=== PATIENT | female | born 1945 | race Caucasian/White ===

== ENCOUNTER 2024-05-04 17:01 | Inpatient (IN) | payer MEDICARE, SELFPAY ==
[2024-05-04 17:08] VITALS: BP 145/79; PULSE 71; RESP 18; TEMP 36.6; O2SAT 92
[2024-05-04 17:18] VITALS: BMI 28.5
--- NOTE | 2024-05-04 17:44 | EKG12_ITS ---
Test Reason : WEAKNESS Blood Pressure : / mmHG Vent. Rate : 068 BPM Atrial Rate : 068 BPM P-R Int : 190 ms QRS Dur : 078 ms QT Int : 466 ms P-R-T Axes : 049 007 005 degrees QTc Int : 495 ms Normal sinus rhythm Possible Left atrial enlargement ST & T wave abnormality, consider inferior ischemia Abnormal ECG Confirmed by Cecilio Rose ([id number]), general expeditor MARLON MARKS ([id number]) on 05/06/2024 10:22:47 AM Referred By: Confirmed By:Cecilio Rose
--- NOTE | 2024-05-04 17:48 | EDS_ITS ---
HPI <POOJA Hall - Last Filed: 05/04/24 19:11> History of Present Illness Chief Complaint: Weakness Narrative Narrative: Patient is a 78-year-old female with history of hypertension hyperlipidemia, fibromyalgia who presents to the emergency department with complaints of 1 week of weakness, worse over the last 48 hours. Patient's family states the patient had some near syncopal episodes, she has been urinating more frequently, she has been having a harsher cough. Patient states that she can is not walk at this time because she is so weak. PFSH <POOJA Hall - Last Filed: 05/04/24 19:11> PFSH Allergy/AdvReac Type Severity Reaction Status Date / Time Sulfa (Sulfonamide Allergy Swelling Verified 05/04/24 17:07 Antibiotics) (sulfa drugs) Social History Smoking Status: Never smoker ROS <POOJA Hall - Last Filed: 05/04/24 19:11> ROS ED ROS Narrative Constitutional: Negative for fever, chills, weight loss. Positive for weakness Eyes: Negative for vision loss, vision change, double vision ENT: Negative for any sore throat, ear pain. Positive for congestion Cardiovascular: Negative for any chest pain, tightness, palpitations Respiratory: Negative for any sputum production, hemoptysis, dyspnea, dyspnea on exertion, orthopnea. Positive for cough Gastrointestinal: Negative for any abdominal pain, nausea, vomiting, diarrhea, constipation, blood in stool, blood in vomit : Negative for any urinary frequency, dysuria, retention, blood in urine Muscle skeletal: Negative for any neck pain, back pain Neurological: Negative for any headache, dizziness. Positive for near syncope Skin: Negative for any rashes, itching, abrasions, lacerations Psychiatric: Negative for any depression, anxiety, stress, suicidal ideation, homicidal ideation Hematologic: Negative for any excessive bruising, easy bleeding EXAM <POOJA Hall - Last Filed: 05/04/24 19:11> Physical Exam Narrative Exam Narrative: Vital signs reviewed. Patient is alert and orient x 4, patient does have a pale appearance, did appear dry on my initial examination. HEET: Head normocephalic atraumatic, TMs clear bilaterally. Posterior pharynx is clear, dry mucous membranes. Nares clear bilaterally. Neck: Supple with no lymphadenopathy or tenderness. No signs of meningismus. Cardiac: Regular rate and rhythm no murmurs gallops or rubs, equal peripheral pulses bilaterally. Respiratory: Slight rhonchorous breath sounds to the right mid lobe, remainder was clear.. No chest tenderness. Abdomen: Soft, nontender, nondistended. No abdominal bruit or pulsatile masses. No hepatosplenomegaly Extremities: No peripheral edema, no signs of gross trauma or deformity. Active full range of motion of all extremities. Neuro: Cranial nerves II through XII intact, no focal neurological deficits. Skin: Clean dry and intact with no rash, purpura, petechiae, vesicles or pustules. Backs/flank: No CVA tenderness, no midline spinal tenderness, no deformity. Psych: Normal mood and affect. No SI, HI or acute psychosis. Const Vital Signs: 05/04/24 17:08 05/04/24 18:16 05/04/24 19:13 Temperature 98 F Temperature Source Temporal Pulse Rate 71 67 Respiratory Rate 18 18 Respiratory Effort Normal Respiratory Pattern Normal Blood Pressure 145/79 H 124/62 H Blood Pressure Mean 101 82 Pulse Ox 92 92 Oxygen Delivery Method Room Air Room Air <Dr. Taqueria Pastrana DO - Last Filed: 05/04/24 19:59> Physical Exam Const Vital Signs: 05/04/24 17:08 05/04/24 18:16 05/04/24 19:13 Temperature 98 F Temperature Source Temporal Pulse Rate 71 67 Respiratory Rate 18 18 Respiratory Effort Normal Respiratory Pattern Normal Blood Pressure 145/79 H 124/62 H Blood Pressure Mean 101 82 Pulse Ox 92 92 Oxygen Delivery Method Room Air Room Air [facility] <POOJA Hall - Last Filed: 05/04/24 19:11> [facility] Lab Data Labs: Laboratory Results - last 24 hr 05/04/24 05/04/24 17:50 17:52 WBC 7.5 RBC 4.24 Hgb 12.6 Hct 37.2 MCV 87.7 MCH 29.7 MCHC 33.9 RDW Std Deviation 42.8 RDW Coeff of Ayesha 13.3 Plt Count 244 MPV 9.2 Immature Gran % (Auto) 0.500 Neut % (Auto) 82.0 H Lymph % (Auto) 7.3 L Mcleod % (Auto) 9.7 Eos % (Auto) 0.0 Baso % (Auto) 0.5 Absolute Neuts (auto) 6.1 Absolute Lymphs (auto) 0.55 L Nucleated RBC % 0 Sodium 128 L Potassium 2.8 L Chloride 90 L Carbon Dioxide 28.0 Anion Gap 10 BUN 11 Creatinine 0.53 L Est GFR (MDRD) Af Amer 143 Est GFR (MDRD) Non-Af 118 BUN/Creatinine Ratio 20.7 H Glucose 142 H Lactic Acid 1.2 Calcium 8.3 L Total Bilirubin 0.50 AST 21 ALT 18 Alkaline Phosphatase 87 Troponin I High Sens 13 Total Protein 7.2 Albumin 3.0 L Globulin 4.2 Albumin/Globulin Ratio 0.7 L Lipase 17 Urine Color Yellow Urine Clarity Clear Urine pH 6.0 Ur Specific [place] 1.015 Urine Protein 30 H Urine Glucose (UA) Normal Urine Ketones 5 H Urine Occult Blood 150 H Urine Nitrite Negative Urine Bilirubin Negative Urine Urobilinogen Normal Ur Leukocyte Esterase 500 H Urine RBC 0 SEEN Urine WBC 25-50 SEEN Ur Squamous Epith Cells 5-10 SEEN Urine Bacteria 2+ Urine Mucus 0 SEEN Radiography Diagnostic Testing: Clinical Impression(s) from Imaging Studies Chest X-Ray 05/04/24 18:08 IMPRESSION: Moderate dense left retrocardiac opacity partially obscuring the left hemidiaphragm. Considerations include pneumonia, pulmonary infarct, and postobstructive pneumonitis due to occult more central mass, large irregular mass, and atelectasis or scarring. Correlate with evidence of pneumonia. RECOMMENDATIONS: Close short-term follow-up chest radiograph versus CT or CTA of the chest. CT or CTA is suggested if it is thought to be indicated. Electronically Signed: Kianna Rogers MD at 19:09 EDT , EKG Normal sinus rhythm: Attestation: I personally reviewed and interpreted this EKG as follows: Comments: Normal sinus rhythm, rate 60 bpm, TN 190 ms, QRS duration 78 ms, no acute ST elevation, no acute infarct noted. Treatment and Re-Evaluation :: Differential diagnosis includes however is not limited to: Dehydration, electrolyte abnormality, pneumonia, COVID-19, influenza, RSV, other viral illness, ACS Patient is in no obvious respiratory distress, patient's vital signs are stable. Patient presents to the emergency department for worsening weakness, cough, generalized bodyaches. Patient will receive basic laboratory values, CBC CMP lipase, troponin, lactic acid. 1 L of normal saline given. Patient received a urinalysis by straight cath. Chest x-ray will be obtained. Viral swab will be ordered. All radiologic examinations were read, reviewed by the emergency department attending. From these reads, a plan of care will be put in place. Patient CBC was unremarkable, hemoglobin stable 12.6, chemistries showed a hyponatremia with a sodium 128, potassium was 2.8, chloride was 90. Patient's creatinine was slightly low at 0.53. Patient's glucose 143. Lactic acid was negative. Lipase was negative. Urinalysis was positive with infection, this was a 2+ bacteria 25-50 white blood cells, 500 leukocytes. This to be sent for a culture. Patient was given IV fluids, IV Rocephin. Patient's viral swab was positive for COVID-19, this does explain the patient's cough and weakness. Chest x-ray was unremarkable. At this time, secondary the patient's weakness, electrolyte abnormalities, hypokalemia, the patient will need to be admitted to the hospital. Patient will be given 20 mill equivalents IV potassium as well as 40 p.o. She will be admitted to the hospitalist service. ED attending note: I evaluated the patient in conjunction with the DMITRY. I agree with his/her statements and above findings. I have personally performed a face to face assessment of the patient and have reviewed the DMITRY Note. I performed a substantive portion of the visit including all aspects of the following. I personally saw the patient performed chart review, physical exam, reviewed labs, imaging (if obtained), and formulated a treatment and management plan. Patient presents with diffuse weakness, dysuria frequency and urgency. No focal neurologic deficits, NIH of 0. Urine appears to be infected however lactate is negative. Will give IV antibiotics admit the patient given weakness, failure to thrive and signs of UTI. This note was generated with [employer] dictation software. It may contain incorrect words, spelling, and punctuation that were not noted in review of the chart prior to signing. <Dr. Taqueria Pastrana, DO - Last Filed: 05/04/24 19:59> MDM Lab Data Labs: Laboratory Results - last 24 hr 05/04/24 05/04/24 17:50 17:52 WBC 7.5 RBC 4.24 Hgb 12.6 Hct 37.2 MCV 87.7 MCH 29.7 MCHC 33.9 RDW Std Deviation 42.8 RDW Coeff of Ayesha 13.3 Plt Count 244 MPV 9.2 Immature Gran % (Auto) 0.500 Neut % (Auto) 82.0 H Lymph % (Auto) 7.3 L Mcleod % (Auto) 9.7 Eos % (Auto) 0.0 Baso % (Auto) 0.5 Absolute Neuts (auto) 6.1 Absolute Lymphs (auto) 0.55 L Nucleated RBC % 0 Sodium 128 L Potassium 2.8 L Chloride 90 L Carbon Dioxide 28.0 Anion Gap 10 BUN 11 Creatinine 0.53 L Est GFR (MDRD) Af Amer 143 Est GFR (MDRD) Non-Af 118 BUN/Creatinine Ratio 20.7 H Glucose 142 H Lactic Acid 1.2 Calcium 8.3 L Total Bilirubin 0.50 AST 21 ALT 18 Alkaline Phosphatase 87 Troponin I High Sens 13 Total Protein 7.2 Albumin 3.0 L Globulin 4.2 Albumin/Globulin Ratio 0.7 L Lipase 17 Urine Color Yellow Urine Clarity Clear Urine pH 6.0 Ur Specific [place] 1.015 Urine Protein 30 H Urine Glucose (UA) Normal Urine Ketones 5 H Urine Occult Blood 150 H Urine Nitrite Negative Urine Bilirubin Negative Urine Urobilinogen Normal Ur Leukocyte Esterase 500 H Urine RBC 0 SEEN Urine WBC 25-50 SEEN Ur Squamous Epith Cells 5-10 SEEN Urine Bacteria 2+ Urine Mucus 0 SEEN Radiography Diagnostic Testing: Clinical Impression(s) from Imaging Studies Chest X-Ray 05/04/24 18:08 IMPRESSION: Moderate dense left retrocardiac opacity partially obscuring the left hemidiaphragm. Considerations include pneumonia, pulmonary infarct, and postobstructive pneumonitis due to occult more central mass, large irregular mass, and atelectasis or scarring. Correlate with evidence of pneumonia. RECOMMENDATIONS: Close short-term follow-up chest radiograph versus CT or CTA of the chest. CT or CTA is suggested if it is thought to be indicated. Electronically Signed: Kianna Rogers MD at 19:09 EDT , Treatment and Re-Evaluation :: Differential diagnosis includes however is not limited to: Dehydration, electrolyte abnormality, pneumonia, COVID-19, influenza, RSV, other viral illness, ACS Patient is in no obvious respiratory distress, patient's vital signs are stable. Patient presents to the emergency department for worsening weakness, cough, generalized bodyaches. Patient will receive basic laboratory values, CBC CMP lipase, troponin, lactic acid. 1 L of normal saline given. Patient received a urinalysis by straight cath. Chest x-ray will be obtained. Viral swab will be ordered. All radiologic examinations were read, reviewed by the emergency department attending. From these reads, a plan of care will be put in place. Patient CBC was unremarkable, hemoglobin stable 12.6, chemistries showed a hyponatremia with a sodium 128, potassium was 2.8, chloride was 90. Patient's creatinine was slightly low at 0.53. Patient's glucose 143. Lactic acid was negative. Lipase was negative. Urinalysis was positive with infection, this was a 2+ bacteria 25-50 white blood cells, 500 leukocytes. This to be sent for a culture. Patient was given IV fluids, IV Rocephin. Patient's viral swab was positive for COVID-19, this does explain the patient's cough and weakness. Chest x-ray was unremarkable. At this time, secondary the patient's weakness, electrolyte abnormalities, hypokalemia, the patient will need to be admitted to the hospital. Patient will be given 20 mill equivalents IV potassium as well as 40 p.o. She will be admitted to the hospitalist service. ED attending note: I evaluated the patient in conjunction with the DMITRY. I agree with his/her statements and above findings. I have personally performed a face to face assessment of the patient and have reviewed the DMITRY Note. I performed a substantive portion of the visit including all aspects of the following. I personally saw the patient performed chart review, physical exam, reviewed labs, imaging (if obtained), and formulated a treatment and management plan. Patient presents with diffuse weakness, dysuria frequency and urgency. No focal neurologic deficits, NIH of 0. Urine appears to be infected however lactate is negative. Will give IV antibiotics admit the patient given weakness, failure to thrive and signs of UTI. In terms of the patient's chest x-ray findings per radiology report the patient had no cough, fever, shortness of breath or chest pain. No clinical indication for additional imaging. No clinical signs of pneumonia. This note was generated with [employer] dictation software. It may contain incorrect words, spelling, and punctuation that were not noted in review of the chart prior to signing. Discharge Plan Dx/Rx/DC Orders Clinical Impression: COVID, Weakness, Acute hyponatremia, Acute hypokalemia, Acute UTI Disposition Disposition: Acute Care Hospital [facility]
--- NOTE | 2024-05-04 17:51 | NURSING ---
NO OLD EKGS
[2024-05-04 17:59] LABS: Mucous, Urine 0 SEEN /hpf (<or=2+); Red Blood Cells-Urine 0 SEEN /hpf (0-5)
[2024-05-04] MEDS: 0.9% Normal Saline (1000mL) 1,000 ML 999 ML IV (18:01)
[2024-05-04 18:04] LABS: Absolute Lymphocyte Count 0.55 X10^3/uL (0.83-4.51); Absolute Neutrophil Count 6.1 X10^3/uL (2.0-7.7); Basophil# 0.04 X10^3/uL; Basophil% 0.5 % (0-1); Hematocrit 37.2 % (37-47); Hemoglobin 12.6 g/dL (12.0-15.0); Lymphocyte # 0.55 X10^3/ul (0.83-4.51); Lymphocyte % 7.3 % (19-41); Mean Corp Hgb Conc 33.9 g/dL (32-36); Mean Corpuscular Hgb 29.7 pg (27.0-32.0); Mean Corpuscular Volume 87.7 fL (81-99); Mean Platelet Vol. 9.2 fl (6.2-12.0); Monocyte# 0.73 X10^3/uL; Monocyte% 9.7 % (0-10); NRBC Flagged by Analyzer 0 % (0-5); Neutrophil # 6.13 X10^3/uL (2.7-7.7); POSITIVE DIFFERENTIAL YES; Platelet Count 244 K/mm3 (150-450); RBC Distribution Width CV 13.3 % (11.6-14.6); RBC Distribution Width SD 42.8 fl (35.1-43.9); Red Blood Count 4.24 M/mm3 (4.2-5.4); White Blood Count 7.5 K/mm3 (4.4-11.0)
[2024-05-04 18:06] LABS: Color, Urine Yellow (Yellow); Glucose, Dipstick Normal (Normal); Ketone-Dipstick 5 mg/dl (Negative); Leukocyte Esterase-Dipstick 500 /ul (Negative); Nitrite-Dipstick Negative (Negative); Occult Blood-Urine 150 /ul (Negative); Protein-Dipstick 30 mg/dl (Negative); Specific Gravity, Urine 1.015 (1.002-1.030); Urine Bilirubin Dipstick Negative (Negative); Urine Clarity Clear (Clear); Urine Urobilinogen Normal (Normal)
--- NOTE | 2024-05-04 18:08 | RAD_ITS ---
EXAM: XR CHEST, 1 VIEW CLINICAL INDICATION: COUGH TECHNIQUE: Frontal view of the chest. COMPARISON: No relevant prior studies available. FINDINGS: LUNGS AND PLEURAL SPACES: There is a thick band of consolidation in the left retrocardiac region partially obscuring the left hemidiaphragm. No left hemidiaphragm elevation. HEART: Unremarkable. Cardiac silhouette not enlarged. MEDIASTINUM: Central airways and mediastinal contour are unremarkable. There are some punctate calcifications in the left infrahilar and left paraspinous region, likely calcified granulomatous lymph nodes. BONES/JOINTS: Unremarkable. No acute fracture. SOFT TISSUES: Unremarkable. RAD/Chest 1 View (Portable) IMPRESSION: Moderate dense left retrocardiac opacity partially obscuring the left hemidiaphragm. Considerations include pneumonia, pulmonary infarct, and postobstructive pneumonitis due to occult more central mass, large irregular mass, and atelectasis or scarring. Correlate with evidence of pneumonia. RECOMMENDATIONS: Close short-term follow-up chest radiograph versus CT or CTA of the chest. CT or CTA is suggested if it is thought to be indicated. Electronically Signed: Kianna Rogers MD at 19:09 EDT ,
[2024-05-04 18:19] LABS: White Blood Cells 25-50 SEEN /hpf (0-5)
[2024-05-04 18:20] LABS: Bacteria 2+ /hpf (None Seen); Squamous Epithelial Cells - UA 5-10 SEEN /hpf (5-10)
[2024-05-04 18:31] LABS: Lactic Acid 1.2 mmol/L (0.4-1.9)
[2024-05-04 18:33] LABS: ALB/GLOB Ratio 0.7 RATIO (0.9-2.4); AST(SGOT) 21 U/L (15-37); Alanine Aminotransfer ALT/SGPT 18 U/L (13-56); Alkaline Phosphatase 87 U/L (45-117); Anion Gap 10 (5-15); BUN 11 mg/dL (7-18); BUN/Creat Ratio 20.7 RATIO (10-20); Calcium,Total 8.3 mg/dL (8.5-10.1); Chloride 90 mmol/L (98-107); Creatinine, Serum 0.53 mg/dL (0.55-1.02); EST Glomerular Filtration Rate 118 mL/min (>60); Est Glom Filt Rate - Afr Amer 143 mL/min (>60); Globulin 4.2 g/dL (2.2-4.2); Glucose 142 mg/dL (74-106); Lipase 17 U/L (13-75); Potassium 2.8 mmol/L (3.5-5.1); Protein, Total 7.2 g/dL (6.4-8.2); Sodium Level 128 mmol/L (136-145); Troponin-I HS 13 pg/mL (3.0-54.0)
[2024-05-04] MEDS: Ceftriaxone 1 GM/50 ML BAG IV (18:43)
--- NOTE | 2024-05-04 19:08 | PCM.HP.STD ---
[facility] - General General Date of Admission: 05/04/24 Date of Service: 05/04/24 Chief Complaint: Generalized Weakness, Near Syncope and Urinary Frequency. HPI Narrative THEODOER SPENCER, is a 78 F with a past medical history of essential hypertension, hyperlipidemia, fibromyalgia, OA and remote history of Lymphoma (~1994); with no residual issues since that time who presents to [facility] ER complaining of generalized weakness, near syncope and urinary frequency. Mrs. Spencer reports her symptoms began approximately one week prior to admission with the gradual-onset of generalized weakness and malaise that then dramatically worsened over the past 48 hours with harsher, more congested cough and feeling like she was going to pass out when she stood up that has now progresses to the point that she cannot walk because she is so weak so she finally decided to come in for further evaluation and treatment. She denies any associated fever, chills, nausea, vomiting, diarrhea, weight loss, constipation, chest pain, hemoptysis or history of tobacco abuse. In the ER she was noted to have a PCR assay positive for COVID-19 complicated by CXR evidence of LLL density consistent with a suspected mass with postobstructive pneumonia compounded by UA positive for Acute Cystitis; without hematuria along with laboratory evidence of Hypokalemia of 2.8 mmol/L present on admission and Hyponatremia of 128 mmol/L present on admission thought to be due to Adverse Drug Reaction to HCTZ all combining to cause Generalized Weakness with Ambulatory Dysfunction and Near Syncope and she was then admitted to the PCU for ongoing care for a stay that is expected to extend beyond 2 midnights. [facility] Home Medications ?Medication ?Instructions ?Recorded ?Last Taken ?Type albuterol sulfate 90 mcg/actuation 2 puff inhalation Q6H PRN wheezing 05/04/24 Unknown History aerosol inhaler SOB atorvastatin 10 mg tablet 5 mg PO QHS HLD 05/04/24 Unknown History hydrochlorothiazide 25 mg tablet 25 mg PO DAILY bp 05/04/24 Unknown History methenamine hippurate 1 gram tablet 1 g PO BID . 05/04/24 Unknown History metoprolol succinate 100 mg 100 mg PO DAILY blood pressure 05/04/24 Unknown History tablet,extended release 24 hr sertraline 100 mg tablet 150 mg PO DAILY . 05/04/24 Unknown History timolol maleate 0.5 % eye drops 1 drp ophthalmic (eye) DAILY . 05/04/24 Unknown History tiotropium bromide 2.5 2 puff inhalation QHS COPD 05/04/24 Unknown History mcg/actuation mist for inhalation (Spiriva Respimat) Allergy/AdvReac Type Severity Reaction Status Date / Time Sulfa (Sulfonamide Allergy Swelling Verified 05/04/24 17:07 Antibiotics) (sulfa drugs) Social History Smoking Status: Never smoker ROS ROS Narrative Review of Systems: Constitutional: Patient admits to generalized weakness and malaise as per HPI. She denies fever or chills. Eyes: Patient denies changes in vision or discharge from eyes. ENT: Patient admits to nasal/sinus congestion but she denies sore throat or ear pain. Resp: Patient admits to congested but nonproductive cough as per HPI. CV: Patient admits to lightheadedness with standing and near syncope. She denies chest pain or palpitations. GI: Patient denies abdominal pain, nausea, vomiting, diarrhea or constipation. : Patient admits to increased urinary frequency as per HPI. She denies hematuria. MSK: Patient admits to generalized weakness but she denies arthralgias or myalgias. Skin: Patient looks pale but she denies rash, abscess or jaundice. Psych: Patient denies symptoms of uncontrolled depression or anxiety. Neuro: Patient admits to tingling due to fibromyalgia but she denies headache or focal neurologic deficits. Allergy: Patient denies lip swelling, tongue swelling or urticaria. Hematology: Patient admits to a remote history of Lymphoma ~30 years ago with no issues since that time. Endocrinology: Patient denies polyuria, polydipsia and polyphagia. 14 point ROS otherwise negative except for positives noted above in HPI. Vital Signs Vital Signs Vital Signs: 05/04/24 17:08 05/04/24 18:16 Temperature 98 F Temperature Source Temporal Pulse Rate 71 Respiratory Rate 18 Respiratory Effort Normal Respiratory Pattern Normal Blood Pressure 145/79 H Blood Pressure Mean 101 Pulse Ox 92 Oxygen Delivery Method Room Air Physical Exam Const alert, oriented x3, no apparent distress, average body habitus and healthy appearing General Appearance: cooperative HEENT normocephalic, head/scalp atraumatic, hearing grossly normal bilaterally and moist oral mucous membranes Eyes PERRL and EOMs intact bilaterally Neck no lymphadenopathy and supple Resp normal respiratory effort and no retractions Cardio regular rate and regular rhythm GI normal to inspection, nondistended, normoactive bowel sounds, soft to palpation, non-tender and non-distended Extremity normal to inspection and full ROM Neuro oriented x3, CN's II-XII intact bilaterally, moves all extremities and no focal motor deficits Sensorium / Orientation: awake, alert, oriented to person, oriented to place and oriented to time Speech: speech normal Psych affect normal Results Medical Records Data Attestation: I reviewed the patient's medical records Lab / Micro Data Attestation: I reviewed the patient's lab results. 05/05/24 06:00 05/04/24 17:50 Labs: Laboratory Results - last 24 hr 05/04/24 17:50: WBC 7.5, RBC 4.24, Hgb 12.6, Hct 37.2, MCV 87.7, MCH 29.7, MCHC 33.9, RDW Std Deviation 42.8, RDW Coeff of Ayesha 13.3, Plt Count 244, MPV 9.2, Immature Gran % (Auto) 0.500, Neut % (Auto) 82.0 H, Lymph % (Auto) 7.3 L, Lanier % (Auto) 9.7, Eos % (Auto) 0.0, Baso % (Auto) 0.5, Absolute Neuts (auto) 6.1, Absolute Lymphs (auto) 0.55 L, Nucleated RBC % 0, Sodium 128 L, Potassium 2.8 L, Chloride 90 L, Carbon Dioxide 28.0, Anion Gap 10, BUN 11, Creatinine 0.53 L, Est GFR (MDRD) Af Amer 143, Est GFR (MDRD) Non-Af 118, BUN/Creatinine Ratio 20.7 H, Glucose 142 H, Lactic Acid 1.2, Calcium 8.3 L, Total Bilirubin 0.50, AST 21, ALT 18, Alkaline Phosphatase 87, Troponin I High Sens 13, Total Protein 7.2, Albumin 3.0 L, Globulin 4.2, Albumin/Globulin Ratio 0.7 L, Lipase 17 05/04/24 17:52: Urine Color Yellow, Urine Clarity Clear, Urine pH 6.0, Ur Specific [place] 1.015, Urine Protein 30 H, Urine Glucose (UA) Normal, Urine Ketones 5 H, Urine Occult Blood 150 H, Urine Nitrite Negative, Urine Bilirubin Negative, Urine Urobilinogen Normal, Ur Leukocyte Esterase 500 H, Urine RBC 0 SEEN, Urine WBC 25-50 SEEN, Ur Squamous Epith Cells 5-10 SEEN, Urine Bacteria 2+, Urine Mucus 0 SEEN Micro: Microbiology 05/04/24 18:00 Mucosa - Nose SARS-CoV-2, Influenza & RSV (PCR) - Final Imaging [facility] Imaging Services [address] [place] [address] Chest 1 View (Portable) MR#: [id number] Acct: [id number] Name: THEODORE SPENCER Rep #: [id number] : 1945 F 78 From: Kianna Rogers MD PCP: Dr. 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 COMPARISON: No relevant prior studies available. FINDINGS: LUNGS AND PLEURAL SPACES: There is a thick band of consolidation in the left retrocardiac region partially obscuring the left hemidiaphragm. No left hemidiaphragm elevation. HEART: Unremarkable. Cardiac silhouette not enlarged. MEDIASTINUM: Central airways and mediastinal contour are unremarkable. There are some punctate calcifications in the left infrahilar and left paraspinous region, likely calcified granulomatous lymph nodes. BONES/JOINTS: Unremarkable. No acute fracture. SOFT TISSUES: Unremarkable. RAD/Chest 1 View (Portable) IMPRESSION: Moderate dense left retrocardiac opacity partially obscuring the left hemidiaphragm. Considerations include pneumonia, pulmonary infarct, and postobstructive pneumonitis due to occult more central mass, large irregular mass, and atelectasis or scarring. Correlate with evidence of pneumonia. RECOMMENDATIONS: Close short-term follow-up chest radiograph versus CT or CTA of the chest. CT or CTA is suggested if it is thought to be indicated. Electronically Signed: Kianna Rogers MD at 19:09 EDT Reading Location ID and State: [facility] / [place] Tel , Service support , CC: POOJA Pretty; Dr. Rito Zuleta MD ~ [employer] Administrator: Signed [facility] Imaging Services [address] [place] [id number] CTA Chest W/WO Contrast MR#: [id number] Acct: [id number] Name: THEODORE SPENCER Rep #: [id number] : 1945 F 78 From: Kianna Rogers MD PCP: Dr. Rito Zuleta MD Status: ADM IN Study: CTA Chest W/WO Contrast Date of Exam: 05/04/24 Exam# [id number] Ordering Dr: Rickey Golden DO EXAM: CT ANGIOGRAPHY CHEST WITHOUT AND WITH INTRAVENOUS CONTRAST CLINICAL INDICATION: ABN CXR TECHNIQUE: Helically acquired angiography images were obtained of the chest without and with intravenous contrast. This CT exam was performed using one or more of the following dose reduction techniques: automated exposure control, adjustment of the mA and/or kV according to patient size, and/or use of iterative reconstruction technique. MIP reconstructed images were created and reviewed. CONTRAST: IV 100mL Isovue-370 RADIATION DOSE: CTDIvol = 36.15 mGy, DLP = 621.61 mGy-cm. COMPARISON: No relevant prior studies available. FINDINGS: PULMONARY ARTERIES: Unremarkable. Normal in caliber. No evidence of pulmonary embolism. AORTA: There is a larger than expected zone of dense consolidation with minimal air bronchograms in the left lung base, there appears to be some intraluminal mucous plugging or debris in the posterior left lower lobe airways. This contains enhancing vessels. There are also multiple patchy opacities in the left lingula and the lateral inferior right middle lobe and lateral right lower lobe adjacent to the diaphragm and some mild focal tree-in-bud type opacities in the upper lobes, greater on the right. Peripheral calcification of the aorta, no aneurysm or dissection. Small calcified granuloma in the right upper lobe. Mildly thick-walled cystic lesion of 2.7 cm x 2 cm in the left lingula adjacent to nodular opacity at roughly 8 mm x 9 mm x 1.5 cm, likely nodular infiltrate but this will require follow-up to exclude resolution. GREAT VESSELS OF AORTIC ARCH: Unremarkable. Normal in caliber. No evidence of dissection. LUNGS AND PLEURAL SPACES: Unremarkable. No mass. No consolidation or edema. No pleural effusion or thickening. No pneumothorax. HEART: Moderate calcification of left anterior descending coronary artery, mild scattered calcifications right coronary artery. No intracardiac filling defects. Heart size is normal. No pericardial effusion. MEDIASTINUM: Minimally prominent mediastinal lymph nodes. Esophagus is unremarkable. No hiatal hernia. THYROID: Unremarkable. No thyroid lesions. BONES/JOINTS: See below. GALLBLADDER AND BILE DUCTS: The gallbladder is not completely included. No specific acute abnormality of the partially included upper abdomen. Moderate calcification and narrowing at the origin of celiac axis. The spine changes. CT/CTA Chest W/WO Contrast IMPRESSION: 1. Questionable small nonocclusive PE in proximal right posterior segmental artery but it is not convincing, best seen on series 2, image 150 and series 601 images 175 through 181, versus heterogeneous enhancement. It is favored to be artifact, only seen on 2 sequential images and there is streak artifact from dense contrast in the SVC at this level. No convincing PE. No aortic aneurysm or dissection. 2. Fairly large zone of dense airspace disease in the left lung base. Suspected pneumonia. Minimal air bronchograms, this is likely associated with mucous plugging or intraluminal debris but no visible central airway obstruction. Patent vessels. 3. Mildly thick-walled cystic lesion in the left lingula. 4. Adjacent nodular 1.5 cm opacity in the left lingula, this will require follow-up or additional evaluation. Please see recommendation below. 5. Mild tree-in-bud type opacities at the periphery of the upper lobes suggesting acute infectious process. 6. Mildly thick band of suspected atelectasis or scarring in the right middle lobe adjacent to the major fissure. 7. Recommendations concerning indeterminate lingular nodule: For low-risk or high-risk patients consider a follow-up chest CT at 3 months. If unchanged consider an additional follow-up CT at 18-24 months. Alternatively (or additionally) PET/CT or tissue sampling could be performed. Electronically Signed: Kianna Rogers MD at 21:04 EDT , CC: Dr. Rito Zuleta MD; Dr. Rickey Golden DO ~ [employer] Administrator: Signed Assessment & Plan Assessment/Plan (1) COVID: (2) Pneumonia: QUALIFIERS: Laterality: left Lung location: lower lobe of lung Pneumonia type: due to unspecified organism Qualified Code(s): J18.9 - Pneumonia, unspecified organism (3) Lung mass: (4) Acute cystitis without hematuria: (5) Acute hyponatremia: (6) Adverse drug reaction: QUALIFIERS: Encounter type: initial encounter Qualified Code(s): T50.905A - Adverse effect of unspecified drugs, medicaments and biological substances, initial encounter (7) Acute hypokalemia: (8) Near syncope: (9) Generalized weakness: (10) Ambulatory dysfunction: PLAN: Plan 1. COVID-19 PCR assay positive with CXR evidence of LLL Mass and suspected Post-obstructive Pneumonia in the setting of a remote history of Lymphoma (~1994) - Admit to PCU under contact and droplet precautions. Check CTA of chest to further delineate LLL density plus start IV Azithromycin. Give oral Decadron per protocol plus Pepcid for GI prophylaxis and antihistamine effect. Give Vitamin D3, Vitamin C and Zinc to help boost immunity and speed recovery. Give Tylenol prn pain or fever. 2. Acute Cystitis; without hematuria complicating #1 - Resume IV Rocephin begun in the ER and await culture and sensitivity data. Give acidophilus probiotics to replace normal catherine. 3. Hypokalemia of 2.8 mmol/L present on admission compounding #1 & #2 - Continue supplemental KCl started in the ER and recheck level in the AM to confirm repletion. 4. Hyponatremia of 128 mmol/L present on admission adding to the complexity of #1 - #3 - Start NS IVF and then recheck BMP in the AM to ensure improvement. Also check urine osmolality and serum osmolality. 5. Adverse Drug Reaction to HCTZ likely causing #4 - Hold this agent and monitor for improvement. 6. Generalized Weakness with Near Syncope and Ambulatory Dysfunction arising from #1 - #5 - Check TSH. PT/OT and Case Management to consult and treat for further recommendations with help appreciated in advance. 7. Essential Hypertension - Resume home regimen plus give prn IV Hydralazine for systolic blood pressure > 160 mmHg. 8. Hyperlipidemia - Continue statin. 9. Fibromyalgia - Stable. 10. Depression - Maintain Sertraline at current dose and schedule. 11. Glaucoma - Resume Timolol eye drops as previous. 12. DVT prophylaxis - Lovenox 40 mg sq daily plus SCD's. Total time: Approximately 75 minutes. Charges/Coding Visit Charges Inpatient E&M: 75912 Init Hosp L3
[2024-05-04 19:13] VITALS: BP 124/62; PULSE 67; RESP 18; O2SAT 92
[2024-05-04] MEDS: Potassium Chloride Oral Tablet 20 MEQ 40 MEQ PO (19:45)
[2024-05-04] MEDS: Potassium Chloride 10mEq/100mL 10 MEQ/100 ML IV.SOLN. 100 MEQ IV BOLUS ×2 (19:45→21:36)
--- NOTE | 2024-05-04 19:58 | CT_ITS ---
EXAM: CT ANGIOGRAPHY CHEST WITHOUT AND WITH INTRAVENOUS CONTRAST CLINICAL INDICATION: ABN CXR TECHNIQUE: Helically acquired angiography images were obtained of the chest without and with intravenous contrast. This CT exam was performed using one or more of the following dose reduction techniques: automated exposure control, adjustment of the mA and/or kV according to patient size, and/or use of iterative reconstruction technique. MIP reconstructed images were created and reviewed. CONTRAST: IV 100mL Isovue-370 RADIATION DOSE: CTDIvol = 36.15 mGy, DLP = 621.61 mGy-cm. COMPARISON: No relevant prior studies available. FINDINGS: PULMONARY ARTERIES: Unremarkable. Normal in caliber. No evidence of pulmonary embolism. AORTA: There is a larger than expected zone of dense consolidation with minimal air bronchograms in the left lung base, there appears to be some intraluminal mucous plugging or debris in the posterior left lower lobe airways. This contains enhancing vessels. There are also multiple patchy opacities in the left lingula and the lateral inferior right middle lobe and lateral right lower lobe adjacent to the diaphragm and some mild focal tree-in-bud type opacities in the upper lobes, greater on the right. Peripheral calcification of the aorta, no aneurysm or dissection. Small calcified granuloma in the right upper lobe. Mildly thick-walled cystic lesion of 2.7 cm x 2 cm in the left lingula adjacent to nodular opacity at roughly 8 mm x 9 mm x 1.5 cm, likely nodular infiltrate but this will require follow-up to exclude resolution. GREAT VESSELS OF AORTIC ARCH: Unremarkable. Normal in caliber. No evidence of dissection. LUNGS AND PLEURAL SPACES: Unremarkable. No mass. No consolidation or edema. No pleural effusion or thickening. No pneumothorax. HEART: Moderate calcification of left anterior descending coronary artery, mild scattered calcifications right coronary artery. No intracardiac filling defects. Heart size is normal. No pericardial effusion. MEDIASTINUM: Minimally prominent mediastinal lymph nodes. Esophagus is unremarkable. No hiatal hernia. THYROID: Unremarkable. No thyroid lesions. BONES/JOINTS: See below. GALLBLADDER AND BILE DUCTS: The gallbladder is not completely included. No specific acute abnormality of the partially included upper abdomen. Moderate calcification and narrowing at the origin of celiac axis. The spine changes. CT/CTA Chest W/WO Contrast IMPRESSION: 1. Questionable small nonocclusive PE in proximal right posterior segmental artery but it is not convincing, best seen on series 2, image 150 and series 601 images 175 through 181, versus heterogeneous enhancement. It is favored to be artifact, only seen on 2 sequential images and there is streak artifact from dense contrast in the SVC at this level. No convincing PE. No aortic aneurysm or dissection. 2. Fairly large zone of dense airspace disease in the left lung base. Suspected pneumonia. Minimal air bronchograms, this is likely associated with mucous plugging or intraluminal debris but no visible central airway obstruction. Patent vessels. 3. Mildly thick-walled cystic lesion in the left lingula. 4. Adjacent nodular 1.5 cm opacity in the left lingula, this will require follow-up or additional evaluation. Please see recommendation below. 5. Mild tree-in-bud type opacities at the periphery of the upper lobes suggesting acute infectious process. 6. Mildly thick band of suspected atelectasis or scarring in the right middle lobe adjacent to the major fissure. 7. Recommendations concerning indeterminate lingular nodule: For low-risk or high-risk patients consider a follow-up chest CT at 3 months. If unchanged consider an additional follow-up CT at 18-24 months. Alternatively (or additionally) PET/CT or tissue sampling could be performed. Electronically Signed: Kianna Rogers MD at 21:04 EDT ,
[2024-05-04 20:02] VITALS: BP 146/73; PULSE 69; RESP 20; TEMP 36.7; O2SAT 93
[2024-05-04 20:03] VITALS: BP 146/73; PULSE 68; RESP 20; TEMP 36.7; O2SAT 93
[2024-05-04 21:09] VITALS: BMI 28.5
[2024-05-04 21:21] VITALS: BP 141/73; PULSE 91; RESP 18; TEMP 37.2; O2SAT 91
[2024-05-04 21:40] LABS: Osmolality, Serum 266 mOsm/KG (280-301)
[2024-05-04] MEDS: Famotidine 20 MG Tablet PO (21:41)
[2024-05-04] MEDS: Lactobacillis Acidophilus 1 CAP PO ×2 (21:43→23:33)
[2024-05-04] MEDS: Azithromycin 500 MG in Dextrose 5%-Water (250mL Bag) 250 ML 250 MG IV (21:44)
[2024-05-04] MEDS: dexAMETHasone 4 MG Tablet 6 MG PO (21:44)
[2024-05-04] MEDS: Enoxaparin 40 MG/0.4 ML Syringe SC (21:44)
[2024-05-04] MEDS: KCL 20MEQ in 0.9% NS 20 MEQ/1,000 ML IV.SOLN. 70 MEQ IV (23:28)
[2024-05-05] VITALS (8 sets, daily range): BP systolic 137–146; BP diastolic 69–86; PULSE 63–89; RESP 16–20; TEMP 36.6–37.9; O2SAT 93–98; BMI 28.5
[2024-05-05 03:19] LABS: Osmolality, Urine 591 mOsm/KG
[2024-05-05 06:09] LABS: Absolute Neutrophil Count 5.3 X10^3/uL (2.0-7.7); Basophil# 0.03 X10^3/uL; Basophil% 0.5 % (0-1); Hematocrit 36.2 % (37-47); Hemoglobin 12.1 g/dL (12.0-15.0); Lymphocyte % 12.3 % (19-41); Mean Corp Hgb Conc 33.4 g/dL (32-36); Mean Corpuscular Volume 89.6 fL (81-99); Mean Platelet Vol. 9.3 fl (6.2-12.0); Monocyte# 0.33 X10^3/uL; Monocyte% 5.1 % (0-10); NRBC Flagged by Analyzer 0 % (0-5); Neutrophil # 5.33 X10^3/uL (2.7-7.7); Neutrophil % 81.5 % (47-70); Platelet Count 212 K/mm3 (150-450); RBC Distribution Width CV 13.2 % (11.6-14.6); RBC Distribution Width SD 43.9 fl (35.1-43.9); Red Blood Count 4.04 M/mm3 (4.2-5.4); White Blood Count 6.5 K/mm3 (4.4-11.0)
[2024-05-05 07:02] LABS: ALB/GLOB Ratio 0.7 RATIO (0.9-2.4); AST(SGOT) 20 U/L (15-37); Alanine Aminotransfer ALT/SGPT 17 U/L (13-56); Albumin, Serum 2.8 g/dL (3.2-5.0); Alkaline Phosphatase 69 U/L (45-117); Anion Gap 6 (5-15); BUN 7 mg/dL (7-18); BUN/Creat Ratio 15.4 RATIO (10-20); Calcium,Total 8.2 mg/dL (8.5-10.1); Chloride 95 mmol/L (98-107); Creatinine, Serum 0.45 mg/dL (0.55-1.02); EST Glomerular Filtration Rate 141 mL/min (>60); Est Glom Filt Rate - Afr Amer 171 mL/min (>60); Estimated Creatinine Clearance 65.26 ml/min; Globulin 4.1 g/dL (2.2-4.2); Glucose 151 mg/dL (74-106); Magnesium 1.7 mg/dL (1.6-2.6); Phosphorus 2.6 mg/dL (2.5-4.9); Potassium 3.7 mmol/L (3.5-5.1); Protein, Total 6.9 g/dL (6.4-8.2); Sodium Level 128 mmol/L (136-145); Thyroid Stim Hormone (TSH) 0.507 uIU/mL (0.358-3.740)
--- NOTE | 2024-05-05 07:28 | PN.HOSP_ITS ---
Reason for Visit Reason for Visit: Diagnoses Hypo-osmolality and hyponatremia (05/04/24) Hypokalemia (05/04/24) Pneumonia, unspecified organism (05/04/24) Acute cystitis without hematuria (05/04/24) Difficulty in walking, not elsewhere classified (05/04/24) Weakness (05/04/24) Syncope and collapse (05/04/24) Other nonspecific abnormal finding of lung field (05/04/24) Adverse effect of unspecified drugs, medicaments and biological substances, initial encounter (05/04/24) COVID-19 (05/04/24) Objective Data Objective Data Vital Signs: Vital Signs Temp Pulse Resp BP Pulse Ox O2 Del Method O2 Flow Rate 98.6 F 89 17 137/69 H 98 Nasal Cannula 2 05/05/24 03:21 05/05/24 03:21 05/05/24 03:21 05/05/24 03:21 05/05/24 03:21 05/05/24 03:33 05/05/24 03:33 Oxygen Flow Rate (L/min) 2 Oxygen Delivery Method Nasal Cannula Weight: 188 lb 4.396 oz Body Mass Index (BMI) 28.5 Intake & Output: Intake and Output for Last 24 Hours 05/03/24 05/04/24 05/05/24 23:59 23:59 23:59 Intake Total 1505 / 1625 240 / 240 Output Total 400 / 400 Balance 1505 / 1625 -160 / -160 Lab / Micro Data 05/05/24 06:00 05/05/24 06:00 Labs: Laboratory Results - last 24 hr 05/04/24 17:50: WBC 7.5, RBC 4.24, Hgb 12.6, Hct 37.2, MCV 87.7, MCH 29.7, MCHC 33.9, RDW Std Deviation 42.8, RDW Coeff of Ayesha 13.3, Plt Count 244, MPV 9.2, Immature Gran % (Auto) 0.500, Neut % (Auto) 82.0 H, Lymph % (Auto) 7.3 L, Garrard % (Auto) 9.7, Eos % (Auto) 0.0, Baso % (Auto) 0.5, Absolute Neuts (auto) 6.1, A bsolute Lymphs (auto) 0.55 L, Nucleated RBC % 0, Sodium 128 L, Potassium 2.8 L, Chloride 90 L, Carbon Dioxide 28.0, Anion Gap 10, BUN 11, Creatinine 0.53 L, Est GFR (MDRD) Af Amer 143, Est GFR (MDRD) Non-Af 118, BUN/Creatinine Ratio 20.7 H, Glucose 142 H, Lactic Acid 1.2, Calcium 8.3 L, Total Bilirubin 0.50, AST 21, ALT 18, Alkaline Phosphatase 87, Troponin I High Sens 13, Total Protein 7.2, Albumin 3.0 L, Globulin 4.2, Albumin/Globulin Ratio 0.7 L, Lipase 17 05/04/24 17:52: Urine Color Yellow, Urine Clarity Clear, Urine pH 6.0, Ur Specific Walker 1.015, Urine Protein 30 H, Urine Glucose (UA) Normal, Urine Ketones 5 H, Urine Occult Blood 150 H, Urine Nitrite Negative, Urine Bilirubin Negative, Urine Urobilinogen Normal, Ur Leukocyte Esterase 500 H, Urine RBC 0 SEEN, Urine WBC 25-50 SEEN, Ur Squamous Epith Cells 5-10 SEEN, Urine Bacteria 2+, Urine Mucus 0 SEEN 05/04/24 20:43: Serum Osmolality 266 L, Folate 28.00, TSH 1.140 05/05/24 02:50: Urine Osmolality 591 05/05/24 06:00: WBC 6.5, RBC 4.04 L, Hgb 12.1, Hct 36.2 L, MCV 89.6, MCH 30.0, MCHC 33.4, RDW Std Deviation 43.9, RDW Coeff of Ayesha 13.2, Plt Count 212, MPV 9.3, Immature Gran % (Auto) 0.600, Neut % (Auto) 81.5 H, Lymph % (Auto) 12.3 L, Garrard % (Auto) 5.1, Eos % (Auto) 0.0, Baso % (Auto) 0.5, Absolute Neuts (auto) 5.3, Absolute Lymphs (auto) 0.80 L, Nucleated RBC % 0, Sodium 128 L, Potassium 3.7, Chloride 95 L, Carbon Dioxide 27.0, Anion Gap 6, BUN 7, Creatinine 0.45 L, Estim Creat Clear Calc 65.26, Est GFR (MDRD) Af Amer 171, Est GFR (MDRD) Non-Af 141, BUN/Creatinine Ratio 15.4, Glucose 151 H, Calcium 8.2 L, Phosphorus 2.6, Magnesium 1.7, Total Bilirubin 0.50, AST 20, ALT 17, Alkaline Phosphatase 69, Total Protein 6.9, Albumin 2.8 L, Globulin 4.1, Albumin/Globulin Ratio 0.7 L, TSH 0.507 Micro: Microbiology 05/04/24 18:00 Mucosa - Nose SARS-CoV-2, Influenza & RSV (PCR) - Final Radiography Diagnostic Testing: Radiology Impression Chest X-Ray 05/04/24 18:08 IMPRESSION: Moderate dense left retrocardiac opacity partially obscuring the left hemidiaphragm. Considerations include pneumonia, pulmonary infarct, and postobstructive pneumonitis due to occult more central mass, large irregular mass, and atelectasis or scarring. Correlate with evidence of pneumonia. RECOMMENDATIONS: Close short-term follow-up chest radiograph versus CT or CTA of the chest. CT or CTA is suggested if it is thought to be indicated. Electronically Signed: Kianna Rogers MD at 19:09 EDT , Chest CTA 05/04/24 19:58 IMPRESSION: 1. Questionable small nonocclusive PE in proximal right posterior segmental artery but it is not convincing, best seen on series 2, image 150 and series 601 images 175 through 181, versus heterogeneous enhancement. It is favored to be artifact, only seen on 2 sequential images and there is streak artifact from dense contrast in the SVC at this level. No convincing PE. No aortic aneurysm or dissection. 2. Fairly large zone of dense airspace disease in the left lung base. Suspected pneumonia. Minimal air bronchograms, this is likely associated with mucous plugging or intraluminal debris but no visible central airway obstruction. Patent vessels. 3. Mildly thick-walled cystic lesion in the left lingula. 4. Adjacent nodular 1.5 cm opacity in the left lingula, this will require follow-up or additional evaluation. Please see recommendation below. 5. Mild tree-in-bud type opacities at the periphery of the upper lobes suggesting acute infectious process. 6. Mildly thick band of suspected atelectasis or scarring in the right middle lobe adjacent to the major fissure. 7. Recommendations concerning indeterminate lingular nodule: For low-risk or high-risk patients consider a follow-up chest CT at 3 months. If unchanged consider an additional follow-up CT at 18-24 months. Alternatively (or additionally) PET/CT or tissue sampling could be performed. Electronically Signed: Kianna Rogers MD at 21:04 EDT Reading Location ID and State: [facility] / [place] Tel , Service support , Physical Exam Narrative Seen and examined. Patient is stated that she has history of asthma although year-round. She has cough with chest congestion mainly in throat area. It got worse in last 2 days with increased severity of cough, wheezing and mild shortness of breath. Physical exam General: Alert, Oriented x3, Cooperative HEENT: Atraumatic, PERRLA, EOMI, Normocephalic Oral: No Gingival or Mucosal Lesions/ Ulcerations Neck: Supple, No JVD, Negative Carotid Bruits Chest wall/Lungs: Air entry diminished in bilateral lung bases. Bilateral coarse wheezing and expiratory rhonchi Cardiovascular: Regular rate, Regular Rhythm, Normal S1, Normal S2, No M/G/R Abdomen: Bowel Sounds Present, Soft, Non Tender, Non-Distended : No dysuria. No renal angle tenderness. No suprapubic tenderness. Extremities: No edema, Capillary Refill Less than 3 Seconds Skin: No rashes, No breakdown Musculoskeletal: No Tenderness to Palpation of Joints or Extremities Neurological: Cranial nerves II-XII grossly intact, DTR 2+/4. No acute focal neurological deficit. Psych/Mental Status: Normal Affect, Appropriate. Const alert, oriented x3, no apparent distress, average body habitus and healthy appearing General Appearance: cooperative HEENT normocephalic, head/scalp atraumatic, hearing grossly normal bilaterally and moist oral mucous membranes Eyes PERRL and EOMs intact bilaterally Neck no lymphadenopathy and supple Resp normal respiratory effort and no retractions Cardio regular rate and regular rhythm GI normal to inspection, nondistended, normoactive bowel sounds, soft to palpation, non-tender and non-distended Extremity normal to inspection and full ROM Neuro oriented x3, CN's II-XII intact bilaterally, moves all extremities and no focal motor deficits Sensorium / Orientation: awake, alert, oriented to person, oriented to place and oriented to time Speech: speech normal Psych affect normal Assessment & Plan Assessment/Plan (1) COVID: (2) Pneumonia: QUALIFIERS: Laterality: left Lung location: lower lobe of lung P neumonia type: due to unspecified organism Qualified Code(s): J18.9 - Pneumonia, unspecified organism (3) Lung mass: (4) Acute cystitis without hematuria: (5) Acute hyponatremia: (6) Acute hypokalemia: (7) Near syncope: (8) Generalized weakness: PLAN: Plan 78-year-old female came to ED for increased weakness for 1 weeks worse for last 48 hours, associated with harsh cough, chest congestion feeling like going to pass out understanding, cannot walk no associated fever, chill, nausea, vomiting diarrhea no chest pain hemoptysis. Patient has been never a smoker. 1. Acute asthma exacerbation due to COVID pneumonia: COVID-19 PCR assay positive with CXR evidence of LLL Mass and suspected Post-obstructive Pneumonia in the setting of a remote history of Lymphoma (~1994) - Admit to PCU under contact and droplet precautions. IV Azithromycin. On Decadron. Patient is being managed on scheduled bronchodilator, IV Solu-Medrol, Mucinex, incentive spirometry and Pep. Processing Analyst consulted. 05/05: CTPA individually reviewed. No evidence of PE. Suspected pneumonia in left lung base with large zone of dense airspace consolidation. Mildly thick- walled cystic lesion in the left lingula 2.7 x 2 cm. Adjacent nodular 1.5 cm in the left lingula, will require follow-up CT scan in 3 months. Mild tree-in-bud opacity at periphery of upper lobes. 2. Acute Cystitis; without hematuria- Resume IV Rocephin begun in the ER and await culture and sensitivity data. Give acidophilus probiotics to replace normal catherine. 3. Hypokalemia of 2.8 mmol/L present on admission -the patient on HCTZ at home without potassium supplement. Continue supplemental KCl started in the ER . Repeat potassium 3.7. 4. Hyponatremia of 128 mmol/L present on admission - Start NS IVF and then recheck BMP in the AM to ensure improvement. Urine osmolarity is 591. Serum osmolarity 266. Repeat sodium is still 128. Hold HCTZ 5. Electrolyte abnormality: Serum magnesium and phosphorus also on low normal side. Replacement ordered. Probably electrolyte abnormality of hyponatremia, hypokalemia due to HCTZ. 6. Generalized Weakness with Near Syncope and Ambulatory Dysfunction Check TSH. PT/OT and Case Management to consult and treat for further recommendations with help appreciated in advance. 7. Essential Hypertension - Resume home regimen plus give prn IV Hydralazine for systolic blood pressure > 160 mmHg. 8. Hyperlipidemia - Continue statin. 9. Fibromyalgia - 10. Depression - Maintain Sertraline at current dose and schedule. 11. Glaucoma - Resume Timolol eye drops as previous. 12. DVT prophylaxis - Lovenox 40 mg sq daily plus SCD's. Microbiology Past 72 Hours 05/04/24 18:00 Mucosa - Nose SARS-CoV-2, Influenza & RSV (PCR) - Final Laboratory Results 05/04/24 17:50: WBC 7.5, RBC 4.24, Hgb 12.6, Hct 37.2, MCV 87.7, MCH 29.7, MCHC 33.9, RDW Std Deviation 42.8, RDW Coeff of Ayesha 13.3, Plt Count 244, MPV 9.2, Immature Gran % (Auto) 0.500, Neut % (Auto) 82.0 H, Lymph % (Auto) 7.3 L, Garrard % (Auto) 9.7, Eos % (Auto) 0.0, Baso % (Auto) 0.5, Absolute Neuts (auto) 6.1, A bsolute Lymphs (auto) 0.55 L, Nucleated RBC % 0, Sodium 128 L, Potassium 2.8 L, Chloride 90 L, Carbon Dioxide 28.0, Anion Gap 10, BUN 11, Creatinine 0.53 L, Est GFR (MDRD) Af Amer 143, Est GFR (MDRD) Non-Af 118, BUN/Creatinine Ratio 20.7 H, Glucose 142 H, Lactic Acid 1.2, Calcium 8.3 L, Total Bilirubin 0.50, AST 21, ALT 18, Alkaline Phosphatase 87, Troponin I High Sens 13, Total Protein 7.2, Albumin 3.0 L, Globulin 4.2, Albumin/Globulin Ratio 0.7 L, Lipase 17 05/04/24 17:52: Urine Color Yellow, Urine Clarity Clear, Urine pH 6.0, Ur Specific Walker 1.015, Urine Protein 30 H, Urine Glucose (UA) Normal, Urine Ketones 5 H, Urine Occult Blood 150 H, Urine Nitrite Negative, Urine Bilirubin Negative, Urine Urobilinogen Normal, Ur Leukocyte Esterase 500 H, Urine RBC 0 SEEN, Urine WBC 25-50 SEEN, Ur Squamous Epith Cells 5-10 SEEN, Urine Bacteria 2+, Urine Mucus 0 SEEN 05/04/24 20:43: Serum Osmolality 266 L, Vitamin B12 Pending, Folate 28.00, TSH 1.140 05/05/24 02:50: Urine Osmolality 591 05/05/24 06:00: WBC 6.5, RBC 4.04 L, Hgb 12.1, Hct 36.2 L, MCV 89.6, MCH 30.0, MCHC 33.4, RDW Std Deviation 43.9, RDW Coeff of Ayesha 13.2, Plt Count 212, MPV 9.3, Immature Gran % (Auto) 0.600, Neut % (Auto) 81.5 H, Lymph % (Auto) 12.3 L, Garrard % (Auto) 5.1, Eos % (Auto) 0.0, Baso % (Auto) 0.5, Absolute Neuts (auto) 5.3, Absolute Lymphs (auto) 0.80 L, Nucleated RBC % 0, Sodium 128 L, Potassium 3.7, Chloride 95 L, Carbon Dioxide 27.0, Anion Gap 6, BUN 7, Creatinine 0.45 L, Estim Creat Clear Calc 65.26, Est GFR (MDRD) Af Amer 171, Est GFR (MDRD) Non-Af 141, BUN/Creatinine Ratio 15.4, Glucose 151 H, Calcium 8.2 L, Phosphorus 2.6, Magnesium 1.7, Total Bilirubin 0.50, AST 20, ALT 17, Alkaline Phosphatase 69, Total Protein 6.9, Albumin 2.8 L, Globulin 4.1, Albumin/Globulin Ratio 0.7 L, TSH 0.507 Clinical Impression(s) from Imaging Studies Chest X-Ray 05/04/24 18:08 IMPRESSION: Moderate dense left retrocardiac opacity partially obscuring the left hemidiaphragm. Considerations include pneumonia, pulmonary infarct, and postobstructive pneumonitis due to occult more central mass, large irregular mass, and atelectasis or scarring. Correlate with evidence of pneumonia. RECOMMENDATIONS: Close short-term follow-up chest radiograph versus CT or CTA of the chest. CT or CTA is suggested if it is thought to be indicated. Electronically Signed: Kianna Rogers MD at 19:09 EDT , Chest CTA 05/04/24 19:58 IMPRESSION: 1. Questionable small nonocclusive PE in proximal right posterior segmental artery but it is not convincing, best seen on series 2, image 150 and series 601 images 175 through 181, versus heterogeneous enhancement. It is favored to be artifact, only seen on 2 sequential images and there is streak artifact from dense contrast in the SVC at this level. No convincing PE. No aortic aneurysm or dissection. 2. Fairly large zone of dense airspace disease in the left lung base. Suspected pneumonia. Minimal air bronchograms, this is likely associated with mucous plugging or intraluminal debris but no visible central airway obstruction. Patent vessels. 3. Mildly thick-walled cystic lesion in the left lingula. 4. Adjacent nodular 1.5 cm opacity in the left lingula, this will require follow-up or additional evaluation. Please see recommendation below. 5. Mild tree-in-bud type opacities at the periphery of the upper lobes suggesting acute infectious process. 6. Mildly thick band of suspected atelectasis or scarring in the right middle lobe adjacent to the major fissure. 7. Recommendations concerning indeterminate lingular nodule: For low-risk or high-risk patients consider a follow-up chest CT at 3 months. If unchanged consider an additional follow-up CT at 18-24 months. Alternatively (or additionally) PET/CT or tissue sampling could be performed. Electronically Signed: Kianna Rogers MD at 21:04 EDT , Charges/Coding Visit Charges Inpatient E&M: 11561 Subs Hosp L2
[2024-05-05] MEDS: Enoxaparin 40 MG/0.4 ML Syringe SC (09:41)
[2024-05-05] MEDS: Ascorbic Acid 500 MG Tablet 1000 MG PO ×2 (09:42→17:45)
[2024-05-05] MEDS: Zinc Sulfate 50 mg zinc (220 mg) ORAL capsule PO (09:42)
[2024-05-05] MEDS: Famotidine 20 MG Tablet PO ×3 (09:42→22:21)
[2024-05-05] MEDS: Cholecalciferol (Vit D3) 125 MCG CAPSULE (5,000 UNITS) PO (09:44)
[2024-05-05] MEDS: Ipratropium/Albuterol Sulfate 3 ML AMPUL.NEB INHALATION ×3 (10:51→20:42)
[2024-05-05] MEDS: Ceftriaxone 1 GM/50 ML BAG IV ×2 (11:16→22:21)
[2024-05-05] MEDS: guaiFENesin/D-Methorphan TAB.SR.12H 2 TABLET PO ×2 (11:16→22:20)
[2024-05-05] MEDS: Magnesium Chloride 64 MG Delay Rel.Tablet 128 MG PO ×2 (11:17→22:19)
[2024-05-05] MEDS: Lactobacillis Acidophilus 1 CAP PO ×3 (14:11→22:20)
[2024-05-05] MEDS: Na Biphos/Potassium Phosphate PACKET 1 PACKET PO ×2 (14:45→22:21)
--- NOTE | 2024-05-05 17:30 | CON.PCM.CC_ITS ---
HPI Consult Data Date of Consult: 05/05/24 HPI Narrative HPI Narrative: THEODORE SPENCER, is a 78 F with a past medical history of essential hypertension, hyperlipidemia, fibromyalgia, OA and remote history of Lymphoma (~1994); with no residual issues since that time who presents to [facility] ER complaining of generalized weakness, near syncope and urinary frequency. Patient reports that her symptoms started one week ago. She feels URI symptoms that ultimately ended up being COVID. CT chest shows a small nonocculsive PE in the right posterior segmental artery. Patient had a some airspace disease in the lung base . She also had a 1.5 cm opacity in the left lingula. Patient also had some mild tree-in -bud opacities Patient has a history of allergies. She reports she was told she has 60 % lung function. She recently from [place] . [facility] Home Medications ?Medication ?Instructions ?Recorded ?Last Taken ?Type albuterol sulfate 90 mcg/actuation 2 puff inhalation Q6H PRN wheezing 05/04/24 Unknown History aerosol inhaler SOB atorvastatin 10 mg tablet 5 mg PO QHS HLD 05/04/24 Unknown History hydrochlorothiazide 25 mg tablet 25 mg PO DAILY bp 05/04/24 Unknown History methenamine hippurate 1 gram tablet 1 g PO BID . 05/04/24 Unknown History metoprolol succinate 100 mg 100 mg PO DAILY blood pressure 05/04/24 Unknown History tablet,extended release 24 hr sertraline 100 mg tablet 150 mg PO DAILY . 05/04/24 Unknown History timolol maleate 0.5 % eye drops 1 drp ophthalmic (eye) DAILY . 05/04/24 Unknown History tiotropium bromide 2.5 2 puff inhalation QHS COPD 05/04/24 Unknown History mcg/actuation mist for inhalation (Spiriva Respimat) Allergy/AdvReac Type Severity Reaction Status Date / Time Sulfa (Sulfonamide Allergy Swelling Verified 05/04/24 17:07 Antibiotics) (sulfa drugs) Family History no significant family his no significant family history Social History Smoking Status: Never smoker Homelessness:: Sheltered ROS Constitutional Constitutional: Reports lethargy and weakness Respiratory/Chest Respiratory/Chest: Reports chest congestion, dyspnea on exertion and hoarseness Gastrointestinal Gastrointestinal: Reports systems reviewed and no addt'l complaints, except as documented Genitourinary Genitourinary: Reports systems reviewed and no addt'l complaints, except as documented Musculoskeletal Musculoskeletal: Reports systems reviewed and no addt'l complaints, except as documented Integumentary Integumentary: Reports systems reviewed and no addt'l complaints, except as documented Neurologic Neurologic: Reports systems reviewed and no addt'l complaints, except as documented Psychiatric Psychiatric: Reports systems reviewed and no addt'l complaints, except as documented Objective Data Objective Data Vital Signs: Vital Signs Last response 3 Temperature 36.6 C 05/05/24 14:15 Temperature Source Temporal 05/05/24 14:15 Pulse Rate 66 05/05/24 15:29 Pulse Strength Normal (2+) 05/05/24 09:49 Respiratory Rate 16 05/05/24 15:29 Respiratory Effort Normal 05/05/24 07:56 Respiratory Pattern Normal 05/05/24 15:29 Blood Pressure 146/86 H 05/05/24 14:15 Blood Pressure Mean 106 05/05/24 14:15 Blood Pressure Source Monitor 05/05/24 14:15 Blood Pressure Position Semi-Fowlers 05/05/24 14:15 Blood Pressure Location Right Arm 05/05/24 14:15 Pulse Ox 94 05/05/24 14:15 Oxygen Delivery Method Room Air 05/05/24 14:15 Oxygen Flow Rate (L/min) 3 05/05/24 10:56 I&O: I&O Last 24 Hours 3 05/04/24 05/05/24 05/05/24 23:59 11:59 23:59 Intake Total 1505 / 1625 240 / 1530 1290 / 1530 Output Total 400 / 400 Balance 1505 / 1625 -160 / 1130 1290 / 1130 I&O: Total Stay 3 05/04/24 17:01 thru 05/05/24 14:05 Intake Total 3035 Output Total 400 Balance 2635 Current Meds Ordered / Administered: Current meds ordered / Administered 3 Generic Name Dose Route Start Last Admin Trade Name Freq PRN Reason Stop Dose Admin Acetaminophen 650 mg 05/04/24 20:56 Acetaminophen 325 Mg Tablet PO Q6H PRN PRN Pain 1-10 Or Fever>100.7 Albuterol/Ipratropium 3 ml 05/05/24 10:00 05/05/24 15:29 Ipratropium/Albuterol Sulfate 3 Ml Ampul.Neb INHALATION 3 ml Q4HWA.RT RIMA Administration Ascorbic Acid 1,000 mg 05/05/24 08:00 05/05/24 09:42 Ascorbic Acid 500 Mg Tablet PO 1,000 mg BIDCM RIMA Administration Cholecalciferol 125 mcg 05/05/24 10:00 05/05/24 09:44 Cholecalciferol (Vit D3) 125 Mcg Capsule (5,000 Units) PO 125 mcg DAILY RIMA Administration Dexamethasone 6 mg 05/05/24 10:00 05/05/24 10:12 Dexamethasone 4 Mg Tablet PO Not Given BREAKFAST RIMA Enoxaparin Sodium 40 mg 05/04/24 20:56 05/05/24 09:41 Enoxaparin 40 Mg/0.4 Ml Syringe SC 40 mg DAILY RIMA Administration Famotidine 20 mg 05/04/24 22:00 05/05/24 09:42 Famotidine 20 Mg Tablet PO 20 mg BID RIMA Administration Guaifenesin 2 tablet 05/05/24 10:00 05/05/24 11:16 Guaifenesin/D-Methorphan Tab.Sr.12h PO 2 tablet BID RIMA Administration Azithromycin 500 mg/ Dextrose 255 mls @ 250 mls/hr 05/04/24 20:05 05/04/24 23:19 IV Infused 2200 RIMA Infusion Ceftriaxone Sodium 1 gm in 50 mls @ 100 mls/hr 05/05/24 10:00 05/05/24 13:06 Rocephin IV Infused Q12 RIMA Infusion Sodium Chloride 250 mls @ 15 mls/hr 05/04/24 21:18 IV .[id number] PRN Additional IVPB Infusion Sodium Chloride 250 mls @ 15 mls/hr 05/04/24 21:18 IV .[id number] PRN Saline Flush Magnesium Chloride 128 mg 05/05/24 10:05 05/05/24 11:17 Magnesium Chloride 64 Mg Delay Rel.Tablet PO 05/08/24 10:06 128 mg BID RIMA Administration Magnesium Hydroxide 30 ml 05/04/24 20:56 Magnesium Hydroxide 30 Ml Udc PO DAILY PRN PRN Constipation Melatonin 3 mg 05/04/24 20:56 Melatonin 3 Mg Tablet PO QHS PRN RIMA Ondansetron HCl 4 mg 05/04/24 20:56 Ondansetron 4 Mg/2 Ml Vial IV Q8H PRN PRN NAUSEA/VOMITING Potassium Phos/Sodium Phos 1 packet 05/05/24 14:00 Na Biphos/Potassium Phosphate Packet PO 05/07/24 14:01 TID RIMA Sodium Chloride 10 - 40 ml 05/04/24 21:18 0.9% Saline Lock 10 Ml Syringe IV UD PRN SALINE FLUSH Zinc Sulfate 50 mg 05/05/24 10:00 05/05/24 09:42 Zinc Sulfate 50 Mg Zinc (220 Mg) Oral Capsule PO 50 mg DAILY RIMA Administration Physical Exam Const alert and oriented x3 General Appearance: cooperative and comfortable HEENT normocephalic and head/scalp atraumatic Head and Scalp: normal to inspection and normocephalic Eyes PERRL General Eye: normal appearance of both eyes Neck full ROM Resp normal respiratory effort Effort and Inspection: stridor Cardio regular rate, regular rhythm, S1 normal heart sound and S2 normal heart sound GI normal to inspection, nondistended, normoactive bowel sounds Skin no rashes or lesions noted Neuro oriented x3 and CN's II-XII intact bilaterally Coordination / Balance: [id number] test normal Lab / Micro Data 05/05/24 06:00 05/05/24 06:00 Labs: Laboratory Results - last 24 hr 05/04/24 17:50: WBC 7.5, RBC 4.24, Hgb 12.6, Hct 37.2, MCV 87.7, MCH 29.7, MCHC 33.9, RDW Std Deviation 42.8, RDW Coeff of Ayesha 13.3, Plt Count 244, MPV 9.2, Immature Gran % (Auto) 0.500, Neut % (Auto) 82.0 H, Lymph % (Auto) 7.[address], [place] % (Auto) 9.7, Eos % (Auto) 0.0, Baso % (Auto) 0.5, Absolute Neuts (auto) 6.1, A bsolute Lymphs (auto) 0.55 L, Nucleated RBC % 0, Sodium 128 L, Potassium 2.8 L, Chloride 90 L, Carbon Dioxide 28.0, Anion Gap 10, BUN 11, Creatinine 0.53 L, Est GFR (MDRD) Af Amer 143, Est GFR (MDRD) Non-Af 118, BUN/Creatinine Ratio 20.7 H, Glucose 142 H, Lactic Acid 1.2, Calcium 8.3 L, Total Bilirubin 0.50, AST 21, ALT 18, Alkaline Phosphatase 87, Troponin I High Sens 13, Total Protein 7.2, Albumin 3.0 L, Globulin 4.2, Albumin/Globulin Ratio 0.7 L, Lipase 17 05/04/24 17:52: Urine Color Yellow, Urine Clarity Clear, Urine pH 6.0, Ur Specific Keller 1.015, Urine Protein 30 H, Urine Glucose (UA) Normal, Urine Ketones 5 H, Urine Occult Blood 150 H, Urine Nitrite Negative, Urine Bilirubin Negative, Urine Urobilinogen Normal, Ur Leukocyte Esterase 500 H, Urine RBC 0 SEEN, Urine WBC 25-50 SEEN, Ur Squamous Epith Cells 5-10 SEEN, Urine Bacteria 2+, Urine Mucus 0 SEEN 05/04/24 20:43: Serum Osmolality 266 L, Folate 28.00, TSH 1.140 05/05/24 02:50: Urine Osmolality 591 05/05/24 06:00: WBC 6.5, RBC 4.04 L, Hgb 12.1, Hct 36.2 L, MCV 89.6, MCH 30.0, MCHC 33.4, RDW Std Deviation 43.9, RDW Coeff of Ayesha 13.2, Plt Count 212, MPV 9.3, Immature Gran % (Auto) 0.600, Neut % (Auto) 81.5 H, Lymph % (Auto) 12.[address], [place] % (Auto) 5.1, Eos % (Auto) 0.0, Baso % (Auto) 0.5, Absolute Neuts (auto) 5.3, Absolute Lymphs (auto) 0.80 L, Nucleated RBC % 0, Sodium 128 L, Potassium 3.7, Chloride 95 L, Carbon Dioxide 27.0, Anion Gap 6, BUN 7, Creatinine 0.45 L, Estim Creat Clear Calc 65.26, Est GFR (MDRD) Af Amer 171, Est GFR (MDRD) Non-Af 141, BUN/Creatinine Ratio 15.4, Glucose 151 H, Calcium 8.2 L, Phosphorus 2.6, Magnesium 1.7, Total Bilirubin 0.50, AST 20, ALT 17, Alkaline Phosphatase 69, Total Protein 6.9, Albumin 2.8 L, Globulin 4.1, Albumin/Globulin Ratio 0.7 L, TSH 0.507 Micro: Microbiology 05/04/24 18:00 Mucosa - Nose SARS-CoV-2, Influenza & RSV (PCR) - Final SARS-CoV-2 (COVID 19 PCR) Imaging Radiology Impression Chest X-Ray 05/04/24 18:08 IMPRESSION: Moderate dense left retrocardiac opacity partially obscuring the left hemidiaphragm. Considerations include pneumonia, pulmonary infarct, and postobstructive pneumonitis due to occult more central mass, large irregular mass, and atelectasis or scarring. Correlate with evidence of pneumonia. RECOMMENDATIONS: Close short-term follow-up chest radiograph versus CT or CTA of the chest. CT or CTA is suggested if it is thought to be indicated. Electronically Signed: Kianna Rogers MD at 19:09 EDT , Chest CTA 05/04/24 19:58 IMPRESSION: 1. Questionable small nonocclusive PE in proximal right posterior segmental artery but it is not convincing, best seen on series 2, image 150 and series 601 images 175 through 181, versus heterogeneous enhancement. It is favored to be artifact, only seen on 2 sequential images and there is streak artifact from dense contrast in the SVC at this level. No convincing PE. No aortic aneurysm or dissection. 2. Fairly large zone of dense airspace disease in the left lung base. Suspected pneumonia. Minimal air bronchograms, this is likely associated with mucous plugging or intraluminal debris but no visible central airway obstruction. Patent vessels. 3. Mildly thick-walled cystic lesion in the left lingula. 4. Adjacent nodular 1.5 cm opacity in the left lingula, this will require follow-up or additional evaluation. Please see recommendation below. 5. Mild tree-in-bud type opacities at the periphery of the upper lobes suggesting acute infectious process. 6. Mildly thick band of suspected atelectasis or scarring in the right middle lobe adjacent to the major fissure. 7. Recommendations concerning indeterminate lingular nodule: For low-risk or high-risk patients consider a follow-up chest CT at 3 months. If unchanged consider an additional follow-up CT at 18-24 months. Alternatively (or additionally) PET/CT or tissue sampling could be performed. Electronically Signed: Kianna Rogers MD at 21:04 EDT , Assessment and Plan . Assessment and plan: Acute hypoxic respiratory failure COVID PNA Small nonocculsive PE - patient is on dexmethasone , azithroymcin and rocephin - needs good CPT , flutter valve and IS - pneumonia could be viral - currently on lovenox 40 mg for nonocculsive PE Critical Care Time: 60 mins The entirety of this encounter was done via Telemedicine
[2024-05-05] MEDS: Acetaminophen 325 MG Tablet 650 MG PO (22:19)
[2024-05-05] MEDS: Azithromycin 500 MG in Dextrose 5%-Water (250mL Bag) 250 ML 250 MG IV (23:34)
[2024-05-06] VITALS (12 sets, daily range): BP systolic 136–148; BP diastolic 73–105; PULSE 68–108; RESP 16–20; TEMP 36.5–37.3; O2SAT 89–98; BMI 28.5
[2024-05-06] MEDS: Na Biphos/Potassium Phosphate PACKET 1 PACKET PO ×3 (05:16→22:24)
[2024-05-06] MEDS: Ipratropium/Albuterol Sulfate 3 ML AMPUL.NEB INHALATION ×4 (07:28→20:00)
[2024-05-06 07:52] LABS: Vitamin B12 454 pg/mL (211-911)
[2024-05-06 07:53] LABS: Magnesium 1.7 mg/dL (1.6-2.6); Phosphorus 2.2 mg/dL (2.5-4.9)
[2024-05-06] MEDS: Ceftriaxone 1 GM/50 ML BAG IV ×2 (09:15→22:24)
[2024-05-06] MEDS: Lactobacillis Acidophilus 1 CAP PO ×4 (09:18→22:24)
[2024-05-06] MEDS: Enoxaparin 40 MG/0.4 ML Syringe SC (09:18)
[2024-05-06] MEDS: dexAMETHasone 4 MG Tablet 6 MG PO (09:19)
[2024-05-06] MEDS: Ascorbic Acid 500 MG Tablet 1000 MG PO ×2 (09:19→16:47)
[2024-05-06] MEDS: Zinc Sulfate 50 mg zinc (220 mg) ORAL capsule PO (09:20)
[2024-05-06] MEDS: Magnesium Chloride 64 MG Delay Rel.Tablet 128 MG PO ×2 (09:20→22:25)
[2024-05-06] MEDS: Cholecalciferol (Vit D3) 125 MCG CAPSULE (5,000 UNITS) PO (09:20)
[2024-05-06] MEDS: guaiFENesin/D-Methorphan TAB.SR.12H 2 TABLET PO ×2 (09:21→22:26)
[2024-05-06] MEDS: Famotidine 20 MG Tablet PO ×2 (09:21→22:24)
--- NOTE | 2024-05-06 09:40 | PN.CC_ITS ---
Assessment & Plan Assessment/Plan (1) COVID: PLAN: Plan RECOMMENDATIONS: 1. Continue supplemental oxygen to maintain saturations at or above 90%. 2. Continue bronchodilator therapy. 3. Continue Decadron to complete 10 days of therapy. 4. Continue empiric antibiotics to complete 7 days of therapy. 5. Continue appropriate DVT prophylaxis. 6. Encourage incentive spirometer use and mobilize patient as tolerated. 7. Follow-up CT chest in 6 to 8 weeks. IMPRESSIONS: 1. Asthma exacerbation secondary to COVID-19 The patient has a self-reported history of asthma and currently is in a state of exacerbation secondary to COVID-19 pneumonia. In addition, her CTA chest at presentation demonstrated several nodular opacities, for which I would recommend follow-up chest imaging in 6 to 8 weeks to document resolution. In the interim, the patient will be continued on supplemental oxygen, if needed, to maintain saturations at or above 90%. Scheduled bronchodilators will be continued along with Decadron to complete 10 days of therapy. The patient has also been maintained on antimicrobials to cover for secondary bacterial pneumonia. 2. History of hypertension/hyperlipidemia/depression/fibromyalgia Complicates care, management, recovery and prognosis. Continue home medications as indicated. This note was generated with [employer] dictation software. It may contain incorrect words, spelling, and punctuation that were not noted in checking the note before signing. Subjective Subjective The patient was seen and examined at the bedside this morning. Events from the last 24 hours have been reviewed. The patient is currently afebrile, hemodynamically stable and maintaining appropriate oxygen saturations on 2 L/min via nasal cannula. The patient reported the presence of a dry mouth and is requesting Biotene along with saline nasal rinses. The patient remains on empiric antimicrobials along with Decadron and bronchodilators. Objective Data Objective Data The patient's most recent lab work, culture data and imaging studies have all been personally reviewed. COVID PCR was positive on May 04. Vital Signs: Vital Signs Temp Pulse Resp BP Pulse Ox O2 Del Method O2 Flow Rate 99.1 F 94 18 136/105 H 96 Nasal Cannula 2 05/06/24 08:15 05/06/24 08:15 05/06/24 08:15 05/06/24 08:15 05/06/24 08:15 05/06/24 09:07 09/16/24 09:07 Oxygen Flow Rate (L/min) 2 Oxygen Delivery Method Nasal Cannula Weight: 188 lb 4.396 oz Body Mass Index (BMI) 28.5 Intake & Output: Intake and Output for Last 24 Hours 05/04/24 05/05/24 05/06/24 23:59 23:59 23:59 Intake Total 1505 / 1625 2060 / 2060 495 / 495 Output Total 750 / 750 900 / 900 Balance 1505 / 1625 1310 / 1310 -405 / -405 Lab / Micro Data Attestation: I reviewed the patient's lab results. 05/05/24 06:00 05/05/24 06:00 Labs: Laboratory Results - last 24 hr 05/04/24 20:43: Vitamin B12 454 05/06/24 06:42: Phosphorus 2.2 L, Magnesium 1.7 Micro: Microbiology 05/04/24 17:52 Urine, Catheterized Urine Culture - Preliminary Culture exhibits no growth. 05/04/24 18:00 Mucosa - Nose SARS-CoV-2, Influenza & RSV (PCR) - Final SARS-CoV-2 (COVID 19 PCR) Social Homelessness:: Sheltered Physical Exam Const alert and no apparent distress General Appearance: cooperative HEENT normocephalic, head/scalp atraumatic and moist oral mucous membranes Eyes PERRL, EOMs intact bilaterally and conjunctivae normal Neck supple General: trachea midline Chest inspection of chest normal Resp normal respiratory effort Auscultation: Negative for rales, rhonchi or wheezes Cardio regular rate and regular rhythm GI normal to inspection, nondistended, normoactive bowel sounds Extremity no clubbing, cyanosis or edema Skin no rashes or lesions noted Neuro oriented x3, moves all extremities and no focal motor deficits Psych cooperative and affect normal Charges/Coding Visit Charges Inpatient E&M: 13724 Subs Hosp L2
--- NOTE | 2024-05-06 11:52 | CASEMGMT ---
SEGUNDO HERNÁNDEZ Assessment Face to Face with patient for initial transition planning/care coordination assessment. SEGUNDO HERNÁNDEZ introduced self and role at [facility], pt voices understanding. Pt is A&Ox4 and is resting comfortably in bed and is calm. Care providers, pharmacy, and demographics verified. Admitting dx: COVID, Acute Cystitis, Hypokalmia LACE Strata: 1 PCP: Rito Zuleta Specialists: Pt states that she follows with a Assistant Manager Quality Management in [place] that she cannot recall the name of Preferred Pharmacy: [facility] Insurance: [employer] [facility] Prescription Benefit: Yes LNOK: Mitchell Christy (H), Rickey Dunn (JAH) Living Arrangements: Pt lives with her in a mobile home with a ramp to enter ADLs/IADLs: Pt states that she is independent. However, pt did not do well with therapy on 05/05 and her 6click=10. Transportation: Pt does not drive. Pt and JAH drive DME: Pt states that she gets Albuterol through [employer] [facility]. Pt states that if she qualifies for home oxygen that she would like to go through [facility] and denies a list of local in network DME companies. Pt also reports that she has a FWW, W/C, Canes, Pulse Ox, and BP Monitor. HHC/SNF: Denies History Pt?s goal: Return to PLOF Plan: TBD. Anticipate SNF vs Home with HHC. Pt states that PT has only worked with me once. Pt would like to work with therapy again to see how she is currently doing and what she is capable of at this time. Pt states that she prefers to DC home once she is medically ready. Pt states that she would like to have HH set up if she were to DC home. Pt denies wanting to see a list of local in network HHC agencies and states that she would like to go through [facility] HH. EDG[facility] and [facility] to follow. Report given to PER DIEM REGISTERED NURSEHans RAYMOND CM. Zach Dial RN, CM
[2024-05-06] MEDS: Remdesivir 200 MG in 0.9% Normal Saline (250mL Bag) 210 ML 250 MG IV (12:09)
[2024-05-06] MEDS: Sodium Chloride 0.65% 1 SPRAY SPRAY.BTL NASAL (14:44)
[2024-05-06] MEDS: Saliva Substitute 237 ML BOTTLE 15 ML MUCOUS MEM (14:46)
--- NOTE | 2024-05-06 15:09 | PCM.PN.HOSP ---
Reason for Visit Reason for Visit: Diagnoses Hypo-osmolality and hyponatremia (05/04/24) Hypokalemia (05/04/24) Pneumonia, unspecified organism (05/04/24) Acute cystitis without hematuria (05/04/24) Difficulty in walking, not elsewhere classified (05/04/24) Weakness (05/04/24) Syncope and collapse (05/04/24) Other nonspecific abnormal finding of lung field (05/04/24) Adverse effect of unspecified drugs, medicaments and biological substances, initial encounter (05/04/24) COVID-19 (05/04/24) Objective Data Objective Data Vital Signs: Vital Signs Temp Pulse Resp BP Pulse Ox O2 Del Method O2 Flow Rate 98.9 F 89 18 143/84 H 98 Nasal Cannula 2 05/06/24 14:15 05/06/24 14:15 05/06/24 14:15 05/06/24 14:15 05/06/24 14:15 05/06/24 14:15 05/06/24 14:15 Oxygen Flow Rate (L/min) 2 Oxygen Delivery Method Nasal Cannula Weight: 188 lb 4.396 oz Body Mass Index (BMI) 28.5 Intake & Output: Intake and Output for Last 24 Hours 05/04/24 05/05/24 05/06/24 23:59 23:59 23:59 Intake Total 1505 / 1625 2060 / 2060 1275 / 1275 Output Total 750 / 750 1750 / 1750 Balance 1505 / 1625 1310 / 1310 -475 / -475 Lab / Micro Data 05/05/24 06:00 05/05/24 06:00 Labs: Laboratory Results - last 24 hr 05/04/24 20:43: Vitamin B12 454 05/06/24 06:42: Phosphorus 2.2 L, Magnesium 1.7 Micro: Microbiology 05/04/24 17:52 Urine, Catheterized Urine Culture - Preliminary Culture exhibits no growth. 05/04/24 18:00 Mucosa - Nose SARS-CoV-2, Influenza & RSV (PCR) - Final SARS-CoV-2 (COVID 19 PCR) Social Homelessness:: Sheltered Physical Exam Narrative Seen and examined. Patient still short of breath and wheezing. Patient is stated that she has history of asthma although year-round. She has cough with chest congestion mainly in throat area. Physical exam General: Alert, Oriented x3, Cooperative HEENT: Atraumatic, PERRLA, EOMI, Normocephalic Oral: No Gingival or Mucosal Lesions/ Ulcerations Neck: Supple, No JVD, Negative Carotid Bruits Chest wall/Lungs: Air entry diminished in bilateral lung bases. Bilateral coarse wheezing and expiratory rhonchi Cardiovascular: Regular rate, Regular Rhythm, Normal S1, Normal S2, No M/G/R Abdomen: Bowel Sounds Present, Soft, Non Tender, Non-Distended : No dysuria. No renal angle tenderness. No suprapubic tenderness. Extremities: No edema, Capillary Refill Less than 3 Seconds Skin: No rashes, No breakdown Musculoskeletal: No Tenderness to Palpation of Joints or Extremities Neurological: Cranial nerves II-XII grossly intact, DTR 2+/4. No acute focal neurological deficit. Psych/Mental Status: Normal Affect, Appropriate. Assessment & Plan Assessment/Plan (1) COVID: (2) Pneumonia: QUALIFIERS: Laterality: left Lung location: lower lobe of lung Pneumonia type: due to unspecified organism Qualified Code(s): J18.9 - Pneumonia, unspecified organism (3) Lung mass: (4) Acute cystitis without hematuria: (5) Acute hyponatremia: (6) Acute hypokalemia: (7) Near syncope: (8) Generalized weakness: PLAN: Plan 78-year-old female came to ED for increased weakness for 1 weeks worse for last 48 hours, associated with harsh cough, chest congestion feeling like going to pass out understanding, cannot walk no associated fever, chill, nausea, vomiting diarrhea no chest pain hemoptysis. Patient has been never a smoker. It got worse in last 2 days with increased severity of cough, wheezing and mild shortness of breath. 1. Acute asthma exacerbation due to COVID pneumonia: COVID-19 PCR assay positive with CXR evidence of LLL Mass and suspected Post-obstructive Pneumonia in the setting of a remote history of Lymphoma (~1994) - Admit to PCU under contact and droplet precautions. IV Azithromycin. On Decadron. Patient is being managed on scheduled bronchodilator, IV Solu-Medrol, Mucinex, incentive spirometry and Pep. Brush Cutter consulted. 05/05: CTPA individually reviewed. No evidence of PE. Suspected pneumonia in left lung base with large zone of dense airspace consolidation. Mildly thick-walled cystic lesion in the left lingula 2.7 x 2 cm. Adjacent nodular 1.5 cm in the left lingula, will require follow-up CT scan in 3 months. Mild tree-in-bud opacity at periphery of upper lobes. 05/06: Patient is still has congestion and wheezing near the main bronchus and tracheal area proximally. I thought to change dexamethasone to Solu-Medrol but she said she gets very agitated and psychotic symptoms with Solu-Medrol in the past. She was trying to jump out of the window. She requires 2 L of oxygen therefore IV remdesivir ordered. Patient had low-grade fever 100.3 Fahrenheit at 8 PM 05/05. Recommended CT chest in 6 to 8 weeks to document resolution of nodular opacity. 2. Abnormal UA, without hematuria- Resume IV Rocephin begun in the ER and await culture and sensitivity data. Give acidophilus probiotics to replace normal catherine. Urine culture reveals no growth. UTI ruled out. 3. Hypokalemia of 2.8 mmol/L present on admission -the patient on HCTZ at home without potassium supplement. Continue supplemental KCl started in the ER . Repeat potassium 3.7. 4. Hyponatremia of 128 mmol/L present on admission - Start NS IVF and then recheck BMP in the AM to ensure improvement. Urine osmolarity is 591. Serum osmolarity 266. Repeat sodium is still 128. Hold HCTZ 05/06: Phosphorus 2.2. Magnesium 1.7. 5. Electrolyte abnormality: Serum magnesium and phosphorus also on low normal side. Replacement ordered. Probably electrolyte abnormality of hyponatremia, hypokalemia due to HCTZ. 6. Generalized Weakness with Near Syncope and Ambulatory Dysfunction Check TSH. PT/OT and Case Management to consult and treat for further recommendations with help appreciated in advance. 7. Essential Hypertension - Resume home regimen plus give prn IV Hydralazine for systolic blood pressure > 160 mmHg. 8. Hyperlipidemia - Continue statin. 9. Fibromyalgia - 10. Depression - Maintain Sertraline at current dose and schedule. 11. Glaucoma - Resume Timolol eye drops as previous. 12. DVT prophylaxis - Lovenox 40 mg sq daily plus SCD's. Microbiology Past 72 Hours 05/04/24 17:52 Urine, Catheterized Urine Culture - Preliminary Culture exhibits no growth. 05/04/24 18:00 Mucosa - Nose SARS-CoV-2, Influenza & RSV (PCR) - Final SARS-CoV-2 (COVID 19 PCR) Laboratory Results 05/04/24 20:43: Vitamin B12 454 05/06/24 06:42: Phosphorus 2.2 L, Magnesium 1.7 Clinical Impression(s) from Imaging Studies Chest X-Ray 05/04/24 18:08 IMPRESSION: Moderate dense left retrocardiac opacity partially obscuring the left hemidiaphragm. Considerations include pneumonia, pulmonary infarct, and postobstructive pneumonitis due to occult more central mass, large irregular mass, and atelectasis or scarring. Correlate with evidence of pneumonia. RECOMMENDATIONS: Close short-term follow-up chest radiograph versus CT or CTA of the chest. CT or CTA is suggested if it is thought to be indicated. Electronically Signed: Kianna Rogers MD at 19:09 EDT , Chest CTA 05/04/24 19:58 IMPRESSION: 1. Questionable small nonocclusive PE in proximal right posterior segmental artery but it is not convincing, best seen on series 2, image 150 and series 601 images 175 through 181, versus heterogeneous enhancement. It is favored to be artifact, only seen on 2 sequential images and there is streak artifact from dense contrast in the SVC at this level. No convincing PE. No aortic aneurysm or dissection. 2. Fairly large zone of dense airspace disease in the left lung base. Suspected pneumonia. Minimal air bronchograms, this is likely associated with mucous plugging or intraluminal debris but no visible central airway obstruction. Patent vessels. 3. Mildly thick-walled cystic lesion in the left lingula. 4. Adjacent nodular 1.5 cm opacity in the left lingula, this will require follow-up or additional evaluation. Please see recommendation below. 5. Mild tree-in-bud type opacities at the periphery of the upper lobes suggesting acute infectious process. 6. Mildly thick band of suspected atelectasis or scarring in the right middle lobe adjacent to the major fissure. 7. Recommendations concerning indeterminate lingular nodule: For low-risk or high-risk patients consider a follow-up chest CT at 3 months. If unchanged consider an additional follow-up CT at 18-24 months. Alternatively (or additionally) PET/CT or tissue sampling could be performed. Electronically Signed: Kianna Rogers MD at 21:04 EDT , Charges/Coding Visit Charges Inpatient E&M: 36532 Subs Hosp L2
[2024-05-06] MEDS: 0.9% Saline Lock 10 ML Syringe IV (22:25)
[2024-05-06] MEDS: Azithromycin 500 MG in Dextrose 5%-Water (250mL Bag) 250 ML 250 MG IV (22:36)
[2024-05-07] VITALS (10 sets, daily range): BP systolic 157–167; BP diastolic 75–108; PULSE 85–105; RESP 16–20; TEMP 35.9–38; O2SAT 90–95; BMI 28.3
[2024-05-07] MEDS: Na Biphos/Potassium Phosphate PACKET 1 PACKET PO ×3 (06:55→21:11)
[2024-05-07] MEDS: Acetaminophen 325 MG Tablet 650 MG PO (06:55)
[2024-05-07 07:06] LABS: Absolute Lymphocyte Count 1.42 X10^3/uL (0.83-4.51); Absolute Neutrophil Count 4.3 X10^3/uL (2.0-7.7); Basophil# 0.03 X10^3/uL; Basophil% 0.4 % (0-1); Hematocrit 36.3 % (37-47); Hemoglobin 12.3 g/dL (12.0-15.0); Lymphocyte # 1.42 X10^3/ul (0.83-4.51); Lymphocyte % 20.2 % (19-41); Mean Corp Hgb Conc 33.9 g/dL (32-36); Mean Corpuscular Hgb 29.9 pg (27.0-32.0); Mean Corpuscular Volume 88.3 fL (81-99); Mean Platelet Vol. 9.2 fl (6.2-12.0); Monocyte# 1.27 X10^3/uL; NRBC Flagged by Analyzer 0 % (0-5); Neutrophil # 4.29 X10^3/uL (2.7-7.7); Platelet Count 226 K/mm3 (150-450); RBC Distribution Width CV 13.5 % (11.6-14.6); Red Blood Count 4.11 M/mm3 (4.2-5.4)
[2024-05-07 07:55] LABS: ALB/GLOB Ratio 0.6 RATIO (0.9-2.4); AST(SGOT) 23 U/L (15-37); Alanine Aminotransfer ALT/SGPT 20 U/L (13-56); Albumin, Serum 2.6 g/dL (3.2-5.0); Alkaline Phosphatase 72 U/L (45-117); Anion Gap 6 (5-15); BUN 6 mg/dL (7-18); BUN/Creat Ratio 11.9 RATIO (10-20); Calcium,Total 8.1 mg/dL (8.5-10.1); Chloride 98 mmol/L (98-107); EST Glomerular Filtration Rate 126 mL/min (>60); Est Glom Filt Rate - Afr Amer 152 mL/min (>60); Estimated Creatinine Clearance 65.08 ml/min; Glucose 97 mg/dL (74-106); Potassium 3.2 mmol/L (3.5-5.1); Protein, Total 6.6 g/dL (6.4-8.2); Sodium Level 133 mmol/L (136-145)
[2024-05-07] MEDS: Ipratropium/Albuterol Sulfate 3 ML AMPUL.NEB INHALATION (08:21)
--- NOTE | 2024-05-07 08:25 | CPS ---
Pt says aerosol makes her severly shake so she did 1/2. Pt is not wheezing. RT will send message to
--- NOTE | 2024-05-07 10:20 | PCM.PN.INT ---
Assessment & Plan Assessment/Plan (1) COVID: PLAN: Plan RECOMMENDATIONS: 1. Continue supplemental oxygen to maintain saturations at or above 90%. 2. Continue bronchodilator therapy. 3. Continue Decadron to complete 10 days of therapy. 4. Continue empiric antibiotics to complete 7 days of therapy. 5. Continue appropriate DVT prophylaxis. 6. Encourage incentive spirometer use and mobilize patient as tolerated. 7. Follow-up CT chest in 6 to 8 weeks. IMPRESSIONS: 1. Asthma exacerbation secondary to COVID-19 The patient has a self-reported history of asthma and currently is in a state of exacerbation secondary to COVID-19 pneumonia. In addition, her CTA chest at presentation demonstrated several nodular opacities, for which I would recommend follow-up chest imaging in 6 to 8 weeks to document resolution. In the interim, the patient will be continued on supplemental oxygen, if needed, to maintain saturations at or above 90%. Scheduled bronchodilators will be continued along with Decadron to complete 10 days of therapy. The patient has also been maintained on antimicrobials to cover for secondary bacterial pneumonia. Recommend performing walking oximetry study prior to consideration for discharge home. 2. History of hypertension/hyperlipidemia/depression/fibromyalgia Complicates care, management, recovery and prognosis. Continue home medications as indicated. This note was generated with [employer] dictation software. It may contain incorrect words, spelling, and punctuation that were not noted in checking the note before signing. Subjective Subjective The patient was seen and examined at the bedside this morning. Events from the last 24 hours have been reviewed. The patient is currently afebrile, hemodynamically stable and maintaining appropriate oxygen saturations on 2 L/min via nasal cannula. The patient remains on Decadron, remdesivir and antimicrobials. White count is within normal limits this morning. Creatinine was also within normal limits. Objective Data Objective Data The patient's most recent lab work, culture data and imaging studies have all been personally reviewed. COVID PCR was positive on May 04. Vital Signs: Vital Signs Temp Pulse Resp BP Pulse Ox O2 Del Method O2 Flow Rate 100.4 F H 94 20 H 159/88 H 90 Room Air 2 05/07/24 06:45 05/07/24 08:21 05/07/24 08:21 05/07/24 06:45 05/07/24 08:25 05/07/24 08:21 05/07/24 06:45 Oxygen Flow Rate (L/min) 2 Oxygen Delivery Method Room Air Weight: 187 lb 2.759 oz Body Mass Index (BMI) 28.3 Intake & Output: Intake and Output for Last 24 Hours 05/05/24 05/06/24 05/07/24 23:59 23:59 23:59 Intake Total 2059 Output Total 750 / 750 2049 Balance 1310 / 1310 Lab / Micro Data Attestation: I reviewed the patient's lab results. 05/07/24 06:32 05/07/24 06:32 Labs: Laboratory Results - last 24 hr 05/07/24 06:32: WBC 7.0, RBC 4.11 L, Hgb 12.3, Hct 36.3 L, MCV 88.3, MCH 29.9, MCHC 33.9, RDW Std Deviation 44.0 H, RDW Coeff of Ayesha 13.5, Plt Count 226, MPV 9.2, Immature Gran % (Auto) 0.400, Neut % (Auto) 61.0, Lymph % (Auto) 20.2, [place] % (Auto) 18.0 H, Eos % (Auto) 0.0, Baso % (Auto) 0.4, Absolute Neuts (auto) 4.3, Absolute Lymphs (auto) 1.42, Nucleated RBC % 0, Sodium 133 L, Potassium 3.2 L, Chloride 98, Carbon Dioxide 29.0, Anion Gap 6, BUN 6 L, Creatinine 0.50 L, Estim Creat Clear Calc 65.08, Est GFR (MDRD) Af Amer 152, Est GFR (MDRD) Non-Af 126, BUN/Creatinine Ratio 11.9, Glucose 97, Calcium 8.1 L, Total Bilirubin 0.10 L, AST 23, ALT 20, Alkaline Phosphatase 72, Total Protein 6.6, Albumin 2.6 L, Globulin 4.0, Albumin/Globulin Ratio 0.6 L Micro: Microbiology 05/04/24 17:52 Urine, Catheterized Urine Culture - Final Culture exhibits no growth. 05/04/24 18:00 Mucosa - Nose SARS-CoV-2, Influenza & RSV (PCR) - Final SARS-CoV-2 (COVID 19 PCR) Social Homelessness:: Sheltered Physical Exam Const alert and no apparent distress General Appearance: cooperative HEENT normocephalic, head/scalp atraumatic and moist oral mucous membranes Eyes PERRL, EOMs intact bilaterally and conjunctivae normal Neck supple General: trachea midline Chest inspection of chest normal Resp normal respiratory effort Auscultation: Negative for rales, rhonchi or wheezes Cardio regular rate and regular rhythm GI normal to inspection, nondistended, normoactive bowel sounds Extremity no clubbing, cyanosis or edema Skin no rashes or lesions noted Neuro oriented x3, moves all extremities and no focal motor deficits Psych cooperative and affect normal Charges/Coding Visit Charges Inpatient E&M: 93695 Subs Hosp L2
--- NOTE | 2024-05-07 10:43 | CASEMGMT ---
Discharge Planning A list of?HH?providers including quality and resource use data and consistent with the patient's preferred geographic region, medical needs, and insurance network was created in [employer].? This list was provided to the RN JENNY Talamantes
[2024-05-07] MEDS: Famotidine 20 MG Tablet PO ×2 (10:56→21:11)
[2024-05-07] MEDS: Zinc Sulfate 50 mg zinc (220 mg) ORAL capsule PO (10:56)
[2024-05-07] MEDS: Lactobacillis Acidophilus 1 CAP PO ×4 (10:56→21:10)
[2024-05-07] MEDS: 0.9% Saline Lock 10 ML Syringe IV ×3 (10:57→21:22)
[2024-05-07] MEDS: Enoxaparin 40 MG/0.4 ML Syringe SC (10:57)
[2024-05-07] MEDS: Ascorbic Acid 500 MG Tablet 1000 MG PO ×2 (10:57→17:34)
[2024-05-07] MEDS: Cholecalciferol (Vit D3) 125 MCG CAPSULE (5,000 UNITS) PO (10:57)
[2024-05-07] MEDS: Magnesium Chloride 64 MG Delay Rel.Tablet 128 MG PO ×2 (10:57→21:10)
[2024-05-07] MEDS: dexAMETHasone 4 MG Tablet 6 MG PO (10:58)
[2024-05-07] MEDS: Ceftriaxone 1 GM/50 ML BAG IV ×2 (10:58→21:12)
--- NOTE | 2024-05-07 11:11 | PN.HOSP_ITS ---
Reason for Visit Reason for Visit: Diagnoses Hypo-osmolality and hyponatremia (05/04/24) Hypokalemia (05/04/24) Pneumonia, unspecified organism (05/04/24) Acute cystitis without hematuria (05/04/24) Difficulty in walking, not elsewhere classified (05/04/24) Weakness (05/04/24) Syncope and collapse (05/04/24) Other nonspecific abnormal finding of lung field (05/04/24) Adverse effect of unspecified drugs, medicaments and biological substances, initial encounter (05/04/24) COVID-19 (05/04/24) Objective Data Objective Data Vital Signs: Vital Signs Temp Pulse Resp BP Pulse Ox O2 Del Method O2 Flow Rate 98.5 F 98 18 161/75 H 92 Room Air 2 05/07/24 10:52 05/07/24 10:52 05/07/24 10:52 05/07/24 10:52 05/07/24 10:52 05/07/24 10:52 05/07/24 06:45 Oxygen Flow Rate (L/min) 2 Oxygen Delivery Method Room Air Weight: 187 lb 2.759 oz Body Mass Index (BMI) 28.3 Intake & Output: Intake and Output for Last 24 Hours 05/05/24 05/06/24 05/07/24 23:59 23:59 23:59 Intake Total 2059 / 2059 Output Total 750 / 750 2049 Balance 1310 / 1310 Lab / Micro Data 05/07/24 06:32 05/07/24 06:32 Labs: Laboratory Results - last 24 hr 05/07/24 06:32: WBC 7.0, RBC 4.11 L, Hgb 12.3, Hct 36.3 L, MCV 88.3, MCH 29.9, MCHC 33.9, RDW Std Deviation 44.0 H, RDW Coeff of Ayesha 13.5, Plt Count 226, MPV 9.2, Immature Gran % (Auto) 0.400, Neut % (Auto) 61.0, Lymph % (Auto) 20.2, [place] % (Auto) 18.0 H, Eos % (Auto) 0.0, Baso % (Auto) 0.4, Absolute Neuts (auto) 4.3, Absolute Lymphs (auto) 1.42, Nucleated RBC % 0, Sodium 133 L, Potassium 3.2 L, Chloride 98, Carbon Dioxide 29.0, Anion Gap 6, BUN 6 L, Creatinine 0.50 L, Estim Creat Clear Calc 65.08, Est GFR (MDRD) Af Amer 152, Est GFR (MDRD) Non-Af 126, BUN/Creatinine Ratio 11.9, Glucose 97, Calcium 8.1 L, Total Bilirubin 0.10 L, AST 23, ALT 20, Alkaline Phosphatase 72, Total Protein 6.6, Albumin 2.6 L, Globulin 4.0, Albumin/Globulin Ratio 0.6 L Micro: Microbiology 05/04/24 17:52 Urine, Catheterized Urine Culture - Final Culture exhibits no growth. 05/04/24 18:00 Mucosa - Nose SARS-CoV-2, Influenza & RSV (PCR) - Final SARS-CoV-2 (COVID 19 PCR) Social Homelessness:: Sheltered Physical Exam Narrative Seen and examined. Patient shortness of breath and wheezing much better. She gets short of breath on walking to bathroom. Cough is also better. Patient is stated that she has history of asthma although year-round. Physical exam General: Alert, Oriented x3, Cooperative HEENT: Atraumatic, PERRLA, EOMI, Normocephalic Oral: No Gingival or Mucosal Lesions/ Ulcerations Neck: Supple, No JVD, Negative Carotid Bruits Chest wall/Lungs: Air entry diminished in bilateral lung bases. Lung sounds clear than yesterday. Mild expiratory wheezing. Cardiovascular: Regular rate, Regular Rhythm, Normal S1, Normal S2, No M/G/R Abdomen: Bowel Sounds Present, Soft, Non Tender, Non-Distended : No dysuria. No renal angle tenderness. No suprapubic tenderness. Extremities: No edema, Capillary Refill Less than 3 Seconds Skin: No rashes, No breakdown Musculoskeletal: No Tenderness to Palpation of Joints or Extremities Neurological: Cranial nerves II-XII grossly intact, DTR 2+/4. No acute focal neurological deficit. Psych/Mental Status: Normal Affect, Appropriate. Assessment & Plan Assessment/Plan (1) COVID: (2) Pneumonia: QUALIFIERS: Pneumonia type: due to unspecified organism L aterality: left Lung location: lower lobe of lung Qualified Code(s): J18.9 - Pneumonia, unspecified organism (3) Lung mass: (4) Acute hyponatremia: (5) Acute hypokalemia: (6) Near syncope: PLAN: Plan 78-year-old female came to ED for increased weakness for 1 weeks worse for last 48 hours, associated with harsh cough, chest congestion feeling like going to pass out understanding, cannot walk no associated fever, chill, nausea, vomiting diarrhea no chest pain hemoptysis. Patient has been never a smoker. It got worse in last 2 days with increased severity of cough, wheezing and mild shortness of breath. 1. Acute asthma exacerbation due to COVID pneumonia: COVID-19 PCR assay positive with CXR evidence of LLL Mass and suspected Post-obstructive Pneumonia in the setting of a remote history of Lymphoma (~1994) - Admit to PCU under contact and droplet precautions. IV Azithromycin. On Decadron. Patient is being managed on scheduled bronchodilator, IV Solu-Medrol, Mucinex, incentive spirometry and Pep. Hand Laster consulted. 05/05: CTPA individually reviewed. No evidence of PE. Suspected pneumonia in left lung base with large zone of dense airspace consolidation. Mildly thick- walled cystic lesion in the left lingula 2.7 x 2 cm. Adjacent nodular 1.5 cm in the left lingula, will require follow-up CT scan in 3 months. Mild tree-in-bud opacity at periphery of upper lobes. 05/06: Patient is still has congestion and wheezing near the main bronchus and tracheal area proximally. I thought to change dexamethasone to Solu-Medrol but she said she gets very agitated and psychotic symptoms with Solu-Medrol in the past. She was trying to jump out of the window. She requires 2 L of oxygen therefore IV remdesivir ordered. Patient had low-grade fever 100.3 Fahrenheit at 8 PM 05/05. Recommended CT chest in 6 to 8 weeks to document resolution of nodular opacity. 05/07: Discussed with the respiratory therapist. Patient gets very nervous, is eatery and restless with DuoNeb?and therefore changed to ipratropium nebulization. Wheezing and rhonchi and dyspnea better but still gets short of breath and walking to bathroom therefore probably 1 day more of hospital stay. On home oxygen qualification date tomorrow. Follow-up CT chest in 6 to 8 weeks as an outpatient. 2. Abnormal UA, without hematuria- Resume IV Rocephin begun in the ER and await culture and sensitivity data. Give acidophilus probiotics to replace normal catherine. Urine culture reveals no growth. UTI ruled out. 3. Hypokalemia of 2.8 mmol/L present on admission -the patient on HCTZ at home without potassium supplement. Continue supplemental KCl started in the ER . Repeat potassium 3.7. 4. Hyponatremia of 128 mmol/L present on admission - Start NS IVF and then recheck BMP in the AM to ensure improvement. Urine osmolarity is 591. Serum osmolarity 266. Repeat sodium is still 128. Hold HCTZ 05/06: Phosphorus 2.2. Magnesium 1.7. 5. Electrolyte abnormality: Serum magnesium and phosphorus also on low normal side. Replacement ordered. Probably electrolyte abnormality of hyponatremia, hypokalemia due to HCTZ. 6. Generalized Weakness with Near Syncope and Ambulatory Dysfunction Check TSH. PT/OT and Case Management to consult and treat for further recommendations with help appreciated in advance. 7. Essential Hypertension - Resume home regimen plus give prn IV Hydralazine for systolic blood pressure > 160 mmHg. 8. Hyperlipidemia - Continue statin. 9. Fibromyalgia - 10. Depression - Maintain Sertraline at current dose and schedule. 11. Glaucoma - Resume Timolol eye drops as previous. 12. DVT prophylaxis - Lovenox 40 mg sq daily plus SCD's. Microbiology Past 72 Hours 05/04/24 17:52 Urine, Catheterized Urine Culture - Preliminary Culture exhibits no growth. 05/04/24 18:00 Mucosa - Nose SARS-CoV-2, Influenza & RSV (PCR) - Final SARS-CoV-2 (COVID 19 PCR) Laboratory Results 05/04/24 20:43: Vitamin B12 454 05/06/24 06:42: Phosphorus 2.2 L, Magnesium 1.7 Clinical Impression(s) from Imaging Studies Chest X-Ray 05/04/24 18:08 IMPRESSION: Moderate dense left retrocardiac opacity partially obscuring the left hemidiaphragm. Considerations include pneumonia, pulmonary infarct, and postobstructive pneumonitis due to occult more central mass, large irregular mass, and atelectasis or scarring. Correlate with evidence of pneumonia. RECOMMENDATIONS: Close short-term follow-up chest radiograph versus CT or CTA of the chest. CT or CTA is suggested if it is thought to be indicated. Electronically Signed: Kianna Rogers MD at 19:09 EDT , Chest CTA 05/04/24 19:58 IMPRESSION: 1. Questionable small nonocclusive PE in proximal right posterior segmental artery but it is not convincing, best seen on series 2, image 150 and series 601 images 175 through 181, versus heterogeneous enhancement. It is favored to be artifact, only seen on 2 sequential images and there is streak artifact from dense contrast in the SVC at this level. No convincing PE. No aortic aneurysm or dissection. 2. Fairly large zone of dense airspace disease in the left lung base. Suspected pneumonia. Minimal air bronchograms, this is likely associated with mucous plugging or intraluminal debris but no visible central airway obstruction. Patent vessels. 3. Mildly thick-walled cystic lesion in the left lingula. 4. Adjacent nodular 1.5 cm opacity in the left lingula, this will require follow-up or additional evaluation. Please see recommendation below. 5. Mild tree-in-bud type opacities at the periphery of the upper lobes suggesting acute infectious process. 6. Mildly thick band of suspected atelectasis or scarring in the right middle lobe adjacent to the major fissure. 7. Recommendations concerning indeterminate lingular nodule: For low-risk or high-risk patients consider a follow-up chest CT at 3 months. If unchanged consider an additional follow-up CT at 18-24 months. Alternatively (or additionally) PET/CT or tissue sampling could be performed. Electronically Signed: Kianna Rogers MD at 21:04 EDT , Charges/Coding Visit Charges Inpatient E&M: 52386 Subs Hosp L2
[2024-05-07] MEDS: Remdesivir 100 MG in 0.9% Normal Saline (250mL Bag) 230 ML 250 MG IV (12:10)
[2024-05-07] MEDS: guaiFENesin/D-Methorphan TAB.SR.12H 2 TABLET PO ×2 (12:10→21:11)
--- NOTE | 2024-05-07 13:51 | NURSING ---
Patient stated that when she arrived to the hospital that she was weak and unable to stand up on her legs. She said that she was body weight. Patient is now able to ambulate SBA with wheeled walker from recliner to the bathroom and back. Patient still states that she is a little short of breath after, SPO2 was 91%. Patient encouraged to continue with incentive spirometer and PEP while awake, and continue to ambulate.
[2024-05-07] MEDS: Ipratropium 0.5 MG/2.5 ML SOLUTION INHALATION (19:53)
[2024-05-07] MEDS: Azithromycin 500 MG in Dextrose 5%-Water (250mL Bag) 250 ML 250 MG IV (23:07)
[2024-05-08] VITALS (8 sets, daily range): BP systolic 144–175; BP diastolic 86–104; PULSE 76–97; RESP 16–20; TEMP 36.2–37; O2SAT 92–96; BMI 28.6
[2024-05-08] MEDS: hydroCHLOROthiazide 25 MG Tablet PO (04:08)
[2024-05-08] MEDS: Na Biphos/Potassium Phosphate PACKET 1 PACKET PO (04:10)
[2024-05-08 06:43] LABS: Absolute Lymphocyte Count 2.05 X10^3/uL (0.83-4.51); Absolute Neutrophil Count 4.3 X10^3/uL (2.0-7.7); Basophil# 0.04 X10^3/uL; Basophil% 0.5 % (0-1); Eosinophil# 0.01 X10^3/uL; Eosinophils% 0.1 % (0-5); Hematocrit 40.1 % (37-47); Hemoglobin 13.4 g/dL (12.0-15.0); Lymphocyte # 2.05 X10^3/ul (0.83-4.51); Lymphocyte % 27.3 % (19-41); Mean Corp Hgb Conc 33.4 g/dL (32-36); Mean Corpuscular Hgb 29.6 pg (27.0-32.0); Mean Corpuscular Volume 88.5 fL (81-99); Mean Platelet Vol. 9.3 fl (6.2-12.0); Monocyte# 1.09 X10^3/uL; Monocyte% 14.5 % (0-10); NRBC Flagged by Analyzer 0 % (0-5); Neutrophil # 4.29 X10^3/uL (2.7-7.7); Neutrophil % 57.3 % (47-70); Platelet Count 268 K/mm3 (150-450); RBC Distribution Width CV 13.7 % (11.6-14.6); RBC Distribution Width SD 44.6 fl (35.1-43.9); Red Blood Count 4.53 M/mm3 (4.2-5.4); White Blood Count 7.5 K/mm3 (4.4-11.0)
[2024-05-08] MEDS: Metoprolol(XL)Succ 100 MG Tablet PO (06:43)
[2024-05-08 07:11] LABS: ALB/GLOB Ratio 0.7 RATIO (0.9-2.4); AST(SGOT) 25 U/L (15-37); Alanine Aminotransfer ALT/SGPT 25 U/L (13-56); Albumin, Serum 2.8 g/dL (3.2-5.0); Alkaline Phosphatase 76 U/L (45-117); Anion Gap 5 (5-15); BUN 10 mg/dL (7-18); BUN/Creat Ratio 26.9 RATIO (10-20); Calcium,Total 8.7 mg/dL (8.5-10.1); Chloride 98 mmol/L (98-107); Creatinine, Serum 0.37 mg/dL (0.55-1.02); EST Glomerular Filtration Rate 178 mL/min (>60); Est Glom Filt Rate - Afr Amer 215 mL/min (>60); Estimated Creatinine Clearance 65.26 ml/min; Globulin 4.1 g/dL (2.2-4.2); Glucose 108 mg/dL (74-106); Potassium 3.5 mmol/L (3.5-5.1); Protein, Total 6.9 g/dL (6.4-8.2); Sodium Level 132 mmol/L (136-145)
[2024-05-08] MEDS: Ipratropium 0.5 MG/2.5 ML SOLUTION INHALATION (07:31)
--- NOTE | 2024-05-08 08:07 | PCM.PN.INT ---
Assessment & Plan Assessment/Plan (1) COVID: PLAN: Plan RECOMMENDATIONS: 1. Supplemental oxygen, if needed, to maintain saturations at or above 90%. 2. Continue bronchodilator therapy. 3. Continue Decadron to complete 10 days of therapy. 4. Continue empiric antibiotics to complete 7 days of therapy. 5. Continue appropriate DVT prophylaxis. 6. Encourage incentive spirometer use and mobilize patient as tolerated. 7. Follow-up CT chest in 6 to 8 weeks. 8. Will sign off from a pulmonary/critical care perspective. Please call with any additional questions. IMPRESSIONS: 1. Asthma exacerbation secondary to COVID-19 The patient has a self-reported history of asthma and currently is in a state of exacerbation secondary to COVID-19 pneumonia. In addition, her CTA chest at presentation demonstrated several nodular opacities, for which I would recommend follow-up chest imaging in 6 to 8 weeks to document resolution. In the interim, the patient will be continued on supplemental oxygen, if needed, to maintain saturations at or above 90%. Scheduled bronchodilators will be continued along with Decadron to complete 10 days of therapy. The patient has also been maintained on antimicrobials to cover for secondary bacterial pneumonia. Recommend performing walking oximetry study prior to consideration for discharge home. 2. History of hypertension/hyperlipidemia/depression/fibromyalgia Complicates care, management, recovery and prognosis. Continue home medications as indicated. This note was generated with [employer] dictation software. It may contain incorrect words, spelling, and punctuation that were not noted in checking the note before signing. Subjective Subjective The patient was seen and examined at the bedside this morning. Events from the last 24 hours have been reviewed. The patient is currently afebrile, hemodynamically stable and maintaining appropriate oxygen saturations on room air. White count remains within normal limits. Hemoglobin and platelet count are stable. The patient remains on antimicrobials, remdesivir and Decadron. Objective Data Objective Data The patient's most recent lab work, culture data and imaging studies have all been personally reviewed. COVID PCR was positive on May 04. Vital Signs: Vital Signs Temp Pulse Resp BP Pulse Ox O2 Del Method O2 Flow Rate 97.8 F 97 16 175/104 H 95 Room Air 2 05/08/24 03:20 05/08/24 06:43 05/08/24 03:20 05/08/24 06:43 05/08/24 03:20 05/08/24 03:20 05/07/24 14:53 Oxygen Flow Rate (L/min) 2 Oxygen Delivery Method Room Air Weight: 188 lb 4.396 oz Body Mass Index (BMI) 28.6 Intake & Output: Intake and Output for Last 24 Hours 05/06/24 05/07/24 05/08/24 23:59 23:59 23:59 Intake Total 2059 350 / 600 755 / 755 Output Total 2049 Balance 350 / 600 755 / 755 Lab / Micro Data Attestation: I reviewed the patient's lab results. 05/08/24 06:21 05/08/24 06:21 Labs: Laboratory Results - last 24 hr 05/07/24 06:32: WBC 7.0, RBC 4.11 L, Hgb 12.3, Hct 36.3 L, MCV 88.3, MCH 29.9, MCHC 33.9, RDW Std Deviation 44.0 H, RDW Coeff of Ayesha 13.5, Plt Count 226, MPV 9.2, Immature Gran % (Auto) 0.400, Neut % (Auto) 61.0, Lymph % (Auto) 20.2, [place] % (Auto) 18.0 H, Eos % (Auto) 0.0, Baso % (Auto) 0.4, Absolute Neuts (auto) 4.3, Absolute Lymphs (auto) 1.42, Nucleated RBC % 0 05/08/24 06:21: WBC 7.5, RBC 4.53, Hgb 13.4, Hct 40.1, MCV 88.5, MCH 29.6, MCHC 33.4, RDW Std Deviation 44.6 H, RDW Coeff of Ayesha 13.7, Plt Count 268, MPV 9.3, Immature Gran % (Auto) 0.300, Neut % (Auto) 57.3, Lymph % (Auto) 27.3, [place] % (Auto) 14.5 H, Eos % (Auto) 0.1, Baso % (Auto) 0.5, Absolute Neuts (auto) 4.3, Absolute Lymphs (auto) 2.05, Nucleated RBC % 0, Sodium 132 L, Potassium 3.5, Chloride 98, Carbon Dioxide 29.0, Anion Gap 5, BUN 10, Creatinine 0.37 L, Estim Creat Clear Calc 65.26, Est GFR (MDRD) Af Amer 215, Est GFR (MDRD) Non-Af 178, BUN/Creatinine Ratio 26.9 H, Glucose 108 H, Calcium 8.7, Total Bilirubin 0.30, AST 25, ALT 25, Alkaline Phosphatase 76, Total Protein 6.9, Albumin 2.8 L, Globulin 4.1, Albumin/Globulin Ratio 0.7 L Micro: Microbiology 05/04/24 17:52 Urine, Catheterized Urine Culture - Final Culture exhibits no growth. 05/04/24 18:00 Mucosa - Nose SARS-CoV-2, Influenza & RSV (PCR) - Final SARS-CoV-2 (COVID 19 PCR) Social Homelessness:: Sheltered Physical Exam Const alert and no apparent distress General Appearance: cooperative HEENT normocephalic, head/scalp atraumatic and moist oral mucous membranes Eyes PERRL, EOMs intact bilaterally and conjunctivae normal Neck supple General: trachea midline Chest inspection of chest normal Resp normal respiratory effort Auscultation: Negative for rales, rhonchi or wheezes Cardio regular rate and regular rhythm GI normal to inspection, nondistended, normoactive bowel sounds Extremity no clubbing, cyanosis or edema Skin no rashes or lesions noted Neuro oriented x3, moves all extremities and no focal motor deficits Psych cooperative and affect normal Charges/Coding Visit Charges Inpatient E&M: 63149 Subs Hosp L2
--- NOTE | 2024-05-08 08:34 | PCM.DC ---
Discharge Instructions Diet Discharge Diet: No restrictions Activity Discharge Activity: Return to Normal Activity Weight Bearing Status: Weight bearing as tolerated Dressing / Incision Call your doctor if you observe: Fever of 101 or Higher, Coldness, Increased Pain, Numbness or Tingling, Change in Color, Inability to urinate, Inability to have a bowel movement, Using more than 1 pad per hour, Shortness of breath, Dizziness, Fainting spells, Swelling in the ankles, Chest pain, Prolonged hiccupping, Increased palpitations (irregular heartbeat) and Calf discomfort Follow Up Care When: IN 2 WEEKS Test Results: Test results from this visit will be discussed in further detail at your follow-up appointment, if applicable. Discharge Plan Admission Admit Date/Time: 05/04/24 19:30 Primary Reason for Your Visit: Asthma exacerbation due to COVID-19 pneumonia Attending Provider: Anthony Longo Primary Care Provider: Rito Zuleta Consulting Providers: Rickey Golden Discharge Orders/Prescriptions Prescriptions: New potassium, sodium phosphates 280-160-250 mg Powder In Packet 1 packet PO TID 2 Days Qty: 6 0RF Biotene Dry Mouth Oral Rinse Mouthwash 15 ml mucous membrane 5X/DAY PRN (Reason: Dry Mouth) Qty: 0 0RF L.acidoph,saliva-B.bif-S.therm 175 mg Capsule 1 cap PO 4X/DAY Qty: 0 0RF dextromethorphan-guaifenesin 60-1,200 mg tablet extended release 12 hr 1 tab PO BID 7 Days Qty: 14 0RF losartan 50 mg tablet 50 mg PO DAILY 30 Days Qty: 30 1RF Rx Instructions: Hold for SBP less than 130 mmHg cefdinir 300 mg capsule 300 mg PO BID 3 Days Qty: 6 0RF Continued albuterol sulfate 90 mcg/actuation HFA aerosol inhaler 2 puff inhalation Q6H PRN (Reason: wheezing SOB) atorvastatin 10 mg tablet 5 mg PO QHS metoprolol succinate 100 mg tablet extended release 24 hr 100 mg PO DAILY hydrochlorothiazide 25 mg tablet 25 mg PO DAILY methenamine hippurate 1 gram tablet 1 g PO BID sertraline 100 mg tablet 150 mg PO DAILY Spiriva Respimat 2.5 mcg/actuation mist 2 puff inhalation QHS timolol maleate 0.5 % drops 1 drp ophthalmic (eye) DAILY Spiriva Respimat 2.5 mcg/actuation mist 2 inh inhalation DAILY Referrals / Follow Up: Rito Zuleta MD [Primary Care Provider] - Within 2 Weeks (Patient will need follow-up CT chest in 6-8 weeks for several nodular opacity to assess resolution) Queenie Mir BLENDER MACHINE OPERATOR, BLENDER MACHINE OPERATOR-C [Med Staff - Adv Practice Prof] - Within 1 Month Disposition Disposition (needs filled in before D/C Order can be placed): Home, Self Care
[2024-05-08] MEDS: Ceftriaxone 1 GM/50 ML BAG IV (08:43)
[2024-05-08] MEDS: Timolol 0.5% 5ML OPTH.BTL 1 DRP OPHTHALMIC (08:49)
[2024-05-08] MEDS: Enoxaparin 40 MG/0.4 ML Syringe SC (08:51)
[2024-05-08] MEDS: Sertraline 50 MG Tablet 150 MG PO (08:55)
[2024-05-08] MEDS: Cholecalciferol (Vit D3) 125 MCG CAPSULE (5,000 UNITS) PO (08:55)
[2024-05-08] MEDS: guaiFENesin/D-Methorphan TAB.SR.12H 2 TABLET PO (08:55)
[2024-05-08] MEDS: Magnesium Chloride 64 MG Delay Rel.Tablet 128 MG PO (08:55)
[2024-05-08] MEDS: Zinc Sulfate 50 mg zinc (220 mg) ORAL capsule PO (08:55)
[2024-05-08] MEDS: Famotidine 20 MG Tablet PO (08:55)
[2024-05-08] MEDS: Lactobacillis Acidophilus 1 CAP PO ×2 (08:55→15:01)
[2024-05-08] MEDS: dexAMETHasone 4 MG Tablet 6 MG PO (08:56)
[2024-05-08] MEDS: Ascorbic Acid 500 MG Tablet 1000 MG PO (08:56)
[2024-05-08] MEDS: Carvedilol 6.25 MG Tablet PO (10:44)
[2024-05-08] MEDS: Remdesivir 100 MG in 0.9% Normal Saline (250mL Bag) 230 ML 250 MG IV (10:44)
--- NOTE | 2024-05-08 12:00 | CASEMGMT ---
Addendum entered by Cheli Hendrix 05/08/24 14:43: RN EDGAR received call back from [facility] and they are able to accept patient with start of care for tomorrow. RN EDGAR updated patient. Patient voiced appreciation and had no further questions or concerns. DC plan updated. Original Note: Patient to discharge today. RN EDGAR spoke with patient regarding [facility]. Patient agreeable to [facility], list provided and patient prefers [facility]. Patient denies other needs at discharge. Patient had no futher questions or concerns. SEGUNDO HERNÁNDEZ called and made referral to [facility], awaiting acceptance. CM will continue to follow this patient and plan for a safe discharge.
--- NOTE | 2024-05-08 13:06 | PCM.DC.SUM ---
Providers Date of Admission: 05/04/24 Date of Discharge: 05/08/24 Primary Care Physician: Dr. Rito Zuleta MD Consultations 05/04/24 21:22 Consult: Trade Recruiter / Pulmonary Medicine Routine Consulting Provider: Intensivists/Pulmonary Med Reason for Consult: LLL PNA with suspected Mass. EMERGENT Consult: No MD Notified: Yes Date Notified: 05/05/24 Time Notified: 06:45 Method of Notification: Answering Service Reason For Visit: COVID 19+, ACUTE CYSTITIS, W/O HEMATURIA, HYPOKALE Diagnosis Discharge Diagnosis (1) COVID: Status: Acute Code(s): U07.1 - COVID-19 Plan 78-year-old female came to ED for increased weakness for 1 weeks worse for last 48 hours, associated with harsh cough, chest congestion feeling like going to pass out understanding, cannot walk no associated fever, chill, nausea, vomiting diarrhea no chest pain hemoptysis. Patient has been never a smoker. It got worse in last 2 days with increased severity of cough, wheezing and mild shortness of breath. 1. Acute asthma exacerbation due to COVID pneumonia: COVID-19 PCR assay positive with CXR evidence of LLL Mass and suspected Post-obstructive Pneumonia in the setting of a remote history of Lymphoma (~1994) - Admit to PCU under contact and droplet precautions. IV Azithromycin. On Decadron. Patient is being managed on scheduled bronchodilator, IV Solu-Medrol, Mucinex, incentive spirometry and Pep. Aligner consulted. 05/05: CTPA individually reviewed. No evidence of PE. Suspected pneumonia in left lung base with large zone of dense airspace consolidation. Mildly thick-walled cystic lesion in the left lingula 2.7 x 2 cm. Adjacent nodular 1.5 cm in the left lingula, will require follow-up CT scan in 3 months. Mild tree-in-bud opacity at periphery of upper lobes. 05/06: Patient is still has congestion and wheezing near the main bronchus and tracheal area proximally. I thought to change dexamethasone to Solu-Medrol but she said she gets very agitated and psychotic symptoms with Solu-Medrol in the past. She was trying to jump out of the window. She requires 2 L of oxygen therefore IV remdesivir ordered. Patient had low-grade fever 100.3 Fahrenheit at 8 PM 05/05. Recommended CT chest in 6 to 8 weeks to document resolution of nodular opacity. 05/07: Discussed with the respiratory therapist. Patient gets very nervous, is eatery and restless with DuoNeb?and therefore changed to ipratropium nebulization. Wheezing and rhonchi and dyspnea better but still gets short of breath and walking to bathroom therefore probably 1 day more of hospital stay. On home oxygen qualification date tomorrow. Follow-up CT chest in 6 to 8 weeks as an outpatient. 05/08: Patient pulse ox 94% on room air. Lungs clear. Heart rate normal. Blood pressure was high 173/96 and patient was given her home medication HCTZ. Patient myristyl high therefore losartan 50 mg daily added. Patient had 4 days of IV antibiotics therefore discharged on 3 more days of cefdinir. Prescription was given for dexamethasone to complete total of 10 days. Advised to follow-up with PCP/neurologist with CT chest in 6 to 8 weeks to document resolution of nodular opacity. 2. Abnormal UA, without hematuria- Resume IV Rocephin begun in the ER and await culture and sensitivity data. Give acidophilus probiotics to replace normal catherine. Urine culture reveals no growth. UTI ruled out. 3. Hypokalemia of 2.8 mmol/L present on admission -the patient on HCTZ at home without potassium supplement. Continue supplemental KCl started in the ER . Repeat potassium 3.7. 4. Hyponatremia of 128 mmol/L present on admission - Start NS IVF and then recheck BMP in the AM to ensure improvement. Urine osmolarity is 591. Serum osmolarity 266. Repeat sodium is still 128. Hold HCTZ 05/06: Phosphorus 2.2. Magnesium 1.7. 05/08: Prescription for Neutra-Phos given. 5. Electrolyte abnormality: Serum magnesium and phosphorus also on low normal side. Replacement ordered. Probably electrolyte abnormality of hyponatremia, hypokalemia due to HCTZ. 6. Generalized Weakness with Near Syncope and Ambulatory Dysfunction Check TSH. PT/OT and Case Management to consult and treat for further recommendations with help appreciated in advance. 7. Essential Hypertension - Resume home regimen plus give prn IV Hydralazine for systolic blood pressure > 160 mmHg. 8. Hyperlipidemia - Continue statin. 9. Fibromyalgia -no acute issues. 10. Depression - Maintain Sertraline at current dose and schedule. 11. Glaucoma - Resume Timolol eye drops as previous. 12. DVT prophylaxis - Lovenox 40 mg sq daily plus SCD's. Discharge medication reconciliation done. Discharge follow-up instructions completed. Discharge process discussed with the patient and all questions were answered to patient's satisfaction. Follow with PCP in 1 to 2 weeks Total time spent, exact 35 minutes on discharge meds reconciliation, examination, coordination of care with nurses and ancillary staff, review of imaging and blood test and discussion with the patient on follow-up instructions. Microbiology Past 72 Hours 05/04/24 17:52 Urine, Catheterized Urine Culture - Preliminary Culture exhibits no growth. 05/04/24 18:00 Mucosa - Nose SARS-CoV-2, Influenza & RSV (PCR) - Final SARS-CoV-2 (COVID 19 PCR) Laboratory Results 05/04/24 20:43: Vitamin B12 454 05/06/24 06:42: Phosphorus 2.2 L, Magnesium 1.7 Clinical Impression(s) from Imaging Studies Chest X-Ray 05/04/24 18:08 IMPRESSION: Moderate dense left retrocardiac opacity partially obscuring the left hemidiaphragm. Considerations include pneumonia, pulmonary infarct, and postobstructive pneumonitis due to occult more central mass, large irregular mass, and atelectasis or scarring. Correlate with evidence of pneumonia. RECOMMENDATIONS: Close short-term follow-up chest radiograph versus CT or CTA of the chest. CT or CTA is suggested if it is thought to be indicated. Electronically Signed: Kianna Rogers MD at 19:09 EDT Reading Location ID and State: [facility] / [place] Tel , Service support , Chest CTA 05/04/24 19:58 IMPRESSION: 1. Questionable small nonocclusive PE in proximal right posterior segmental artery but it is not convincing, best seen on series 2, image 150 and series 601 images 175 through 181, versus heterogeneous enhancement. It is favored to be artifact, only seen on 2 sequential images and there is streak artifact from dense contrast in the SVC at this level. No convincing PE. No aortic aneurysm or dissection. 2. Fairly large zone of dense airspace disease in the left lung base. Suspected pneumonia. Minimal air bronchograms, this is likely associated with mucous plugging or intraluminal debris but no visible central airway obstruction. Patent vessels. 3. Mildly thick-walled cystic lesion in the left lingula. 4. Adjacent nodular 1.5 cm opacity in the left lingula, this will require follow-up or additional evaluation. Please see recommendation below. 5. Mild tree-in-bud type opacities at the periphery of the upper lobes suggesting acute infectious process. 6. Mildly thick band of suspected atelectasis or scarring in the right middle lobe adjacent to the major fissure. 7. Recommendations concerning indeterminate lingular nodule: For low-risk or high-risk patients consider a follow-up chest CT at 3 months. If unchanged consider an additional follow-up CT at 18-24 months. Alternatively (or additionally) PET/CT or tissue sampling could be performed. Electronically Signed: Kianna Rogers MD at 21:04 EDT Reading Location ID and State: [facility] / [place] Tel , Service support , Medications at Discharge Home Medications albuterol sulfate 90 mcg/actuation aerosol inhaler 2 puff inhalation Q6H PRN wheezing SOB 05/04/24 atorvastatin 10 mg tablet 5 mg PO QHS HLD 05/04/24 hydrochlorothiazide 25 mg tablet 25 mg PO DAILY bp 05/04/24 methenamine hippurate 1 gram tablet 1 g PO BID . 05/04/24 metoprolol succinate 100 mg tablet,extended release 24 hr 100 mg PO DAILY blood pressure 05/04/24 sertraline 100 mg tablet 150 mg PO DAILY . 05/04/24 timolol maleate 0.5 % eye drops 1 drp ophthalmic (eye) DAILY . 05/04/24 tiotropium bromide 2.5 mcg/actuation mist for inhalation (Spiriva Respimat) 2 puff inhalation QHS COPD 05/04/24 tiotropium bromide 2.5 mcg/actuation mist for inhalation (Spiriva Respimat) 2 inh inhalation DAILY breathing 05/06/24 L.acidophil,salivari-Bifido bifidum-Strep thermoph 175 mg capsule 1 cap PO 4X/DAY #0 caps 05/08/24 cefdinir 300 mg capsule 300 mg PO BID 3 days #6 caps 05/08/24 dexamethasone 6 mg tablet 6 mg PO DAILY 6 days #6 tabs 05/08/24 dextromethorphan-guaifenesin ER 60 mg-1,200 mg tab,extend release,12hr 1 tab PO BID 7 days #14 tabs 05/08/24 losartan 50 mg tablet 50 mg PO DAILY 1 month #30 tabs 05/08/24 potassium, sodium phosphates 280 mg-160 mg-250 mg oral powder packet 1 packet PO TID 2 days #6 ea 05/08/24 saliva substitute combo no.9 (Biotene Dry Mouth Oral Rinse mouthwash) 15 ml mucous membrane 5X/DAY PRN Dry Mouth #0 mL 05/08/24 Physical Exam Narrative Seen and examined. Patient shortness of breath and wheezing much better. No shortness of breath. Pulse ox normal. Patient is stated that she has history of asthma although year-round. Physical exam General: Alert, Oriented x3, Cooperative HEENT: Atraumatic, PERRLA, EOMI, Normocephalic Oral: No Gingival or Mucosal Lesions/ Ulcerations Neck: Supple, No JVD, Negative Carotid Bruits Chest wall/Lungs: Air entry diminished in bilateral lung bases. Mild expiratory wheezing otherwise lungs clear. Cardiovascular: Regular rate, Regular Rhythm, Normal S1, Normal S2, No M/G/R Abdomen: Bowel Sounds Present, Soft, Non Tender, Non-Distended : No dysuria. No renal angle tenderness. No suprapubic tenderness. Extremities: No edema, Capillary Refill Less than 3 Seconds Skin: No rashes, No breakdown Musculoskeletal: No Tenderness to Palpation of Joints or Extremities Neurological: Cranial nerves II-XII grossly intact, DTR 2+/4. No acute focal neurological deficit. Psych/Mental Status: Normal Affect, Appropriate. Medical Records Data Homelessness:: Sheltered Weight / BMI Weight Weight: 188 lb 4.396 oz Body Mass Index (BMI) 28.6 ABG / Lab / Microbiology Data 05/08/24 06:21 05/08/24 06:21 Laboratory: Laboratory Results - last 24 hr 05/08/24 06:21: WBC 7.5, RBC 4.53, Hgb 13.4, Hct 40.1, MCV 88.5, MCH 29.6, MCHC 33.4, RDW Std Deviation 44.6 H, RDW Coeff of Ayesha 13.7, Plt Count 268, MPV 9.3, Immature Gran % (Auto) 0.300, Neut % (Auto) 57.3, Lymph % (Auto) 27.3, [place] % (Auto) 14.5 H, Eos % (Auto) 0.1, Baso % (Auto) 0.5, Absolute Neuts (auto) 4.3, Absolute Lymphs (auto) 2.05, Nucleated RBC % 0, Sodium 132 L, Potassium 3.5, Chloride 98, Carbon Dioxide 29.0, Anion Gap 5, BUN 10, Creatinine 0.37 L, Estim Creat Clear Calc 65.26, Est GFR (MDRD) Af Amer 215, Est GFR (MDRD) Non-Af 178, BUN/Creatinine Ratio 26.9 H, Glucose 108 H, Calcium 8.7, Total Bilirubin 0.30, AST 25, ALT 25, Alkaline Phosphatase 76, Total Protein 6.9, Albumin 2.8 L, Globulin 4.1, Albumin/Globulin Ratio 0.7 L Microbiology: Microbiology 05/04/24 17:52 Urine, Catheterized Urine Culture - Final Culture exhibits no growth. 05/04/24 18:00 Mucosa - Nose SARS-CoV-2, Influenza & RSV (PCR) - Final SARS-CoV-2 (COVID 19 PCR) D/C Instructions Discharge Diet: No restrictions Weight Bearing Status: Weight bearing as tolerated Call your doctor if you observe: Fever of 101 or Higher, Coldness, Increased Pain, Numbness or Tingling, Change in Color, Inability to urinate, Inability to have a bowel movement, Using more than 1 pad per hour, Shortness of breath, Dizziness, Fainting spells, Swelling in the ankles, Chest pain, Prolonged hiccupping, Increased palpitations (irregular heartbeat) and Calf discomfort When: IN 2 WEEKS Meaningful Use Info Meaningful Use Meaningful Use Diagnoses (Choose all that apply): None applicable Ischemic Stroke Statin Dosing Therapy Reference: STATIN DOSE THERAPY REFERENCE: * Patients > 75 years receive moderate or high dose statin therapy. * Patients 75 years or YOUNGER should receive HIGH intensity statin dose unless contraindicated. You will be required to document reason for non-treatment if statin daily dose does not meet guidelines. HIGH DOSE STATIN THERAPY DAILY Atorvastatin > than or = to 40 mg Rosuvastatin > than or = to 20 mg Amlodipine + Atorvastatin > than or = to 2.5/40 mg Ezetimibe + Simvastatin 10/80 mg Simvastatin 80mg Discharge Plan Admission Admit Date/Time: 05/04/24 19:30 Primary Reason for Your Visit: Asthma exacerbation due to COVID-19 pneumonia Attending Provider: Anthony Longo Primary Care Provider: Rito Zuleta Consulting Providers: Rickey Golden Discharge Orders/Prescriptions Prescriptions: New potassium, sodium phosphates 280-160-250 mg Powder In Packet 1 packet PO TID 2 Days Qty: 6 0RF Biotene Dry Mouth Oral Rinse Mouthwash 15 ml mucous membrane 5X/DAY PRN (Reason: Dry Mouth) Qty: 0 0RF L.acidoph,saliva-B.bif-S.therm 175 mg Capsule 1 cap PO 4X/DAY Qty: 0 0RF dextromethorphan-guaifenesin 60-1,200 mg tablet extended release 12 hr 1 tab PO BID 7 Days Qty: 14 0RF losartan 50 mg tablet 50 mg PO DAILY 30 Days Qty: 30 1RF Rx Instructions: Hold for SBP less than 130 mmHg cefdinir 300 mg capsule 300 mg PO BID 3 Days Qty: 6 0RF dexamethasone 6 mg tablet 6 mg PO DAILY 6 Days Qty: 6 0RF Continued albuterol sulfate 90 mcg/actuation HFA aerosol inhaler 2 puff inhalation Q6H PRN (Reason: wheezing SOB) atorvastatin 10 mg tablet 5 mg PO QHS metoprolol succinate 100 mg tablet extended release 24 hr 100 mg PO DAILY hydrochlorothiazide 25 mg tablet 25 mg PO DAILY methenamine hippurate 1 gram tablet 1 g PO BID sertraline 100 mg tablet 150 mg PO DAILY Spiriva Respimat 2.5 mcg/actuation mist 2 puff inhalation QHS timolol maleate 0.5 % drops 1 drp ophthalmic (eye) DAILY Spiriva Respimat 2.5 mcg/actuation mist 2 inh inhalation DAILY Referrals / Follow Up: Rito Zuleta MD [Primary Care Provider] - Within 2 Weeks (Patient will need follow-up CT chest in 6-8 weeks for several nodular opacity to assess resolution) Queenie Mir NP, ASSISTANT OFFSET PRESS OPERATOR-C [Med Staff - Adv Practice Prof] - Within 1 Month Disposition Disposition (needs filled in before D/C Order can be placed): Home, Self Care Charges/Coding Visit Charges Inpatient E&M: 50044 Disch Hosp >30min
[2024-05-08] MEDS: Losartan Potassium 50 MG Tablet PO (15:00)
== END 2024-05-08 18:32 | disposition home or self-care (01) | DRG 177 ==
LOC: ED 19:09 → PCU 19:57
PROVIDERS: Nurse Practitioner; Admitting Provider Internal Medicine; Emergency Provider Emergency Medicine; PCP Family Medicine; Visit Provider Internal Medicine
DX: U07.1 COVID-19 (principal); J12.82 Pneumonia due to coronavirus disease 2019; J45.901 Unspecified asthma with (acute) exacerbation; E87.1 Hypo-osmolality and hyponatremia; N30.00 Acute cystitis without hematuria; Z59.01 Sheltered homelessness; E87.8 Other disorders of electrolyte and fluid balance, not elsewhere classified; F32.A Depression, unspecified; I10 Essential (primary) hypertension; E87.6 Hypokalemia; E78.5 Hyperlipidemia, unspecified; H40.9 Unspecified glaucoma; Z79.899 Other long term (current) drug therapy; R91.8 Other nonspecific abnormal finding of lung field; T50.2X5A Adverse effect of carbonic-anhydrase inhibitors, benzothiadiazides and other diuretics, initial encounter
CPT/HCPCS: 36415; 71045; 71275; 80053; 81001; 82607; 82746; 83605; 83690; 83735; 83930; 83935; 84100; 84443; 84484; 85025; 87086; 87631; 93005; 94640; 94668; 97161; 97166; 97530; 97535; 99252; 99285; J7030; J7040; J7050; P9612; Q9967; A4216; G0463; J0248

== ENCOUNTER → 2024-06-05 | Outpatient (CLI) | payer MEDICARE, SELFPAY ==
--- NOTE | 2024-06-05 14:08 | CT_ITS ---
EXAM: CT CHEST WITHOUT INTRAVENOUS CONTRAST CLINICAL INDICATION: ABNORMAL CT, OTHER NONSPECIFIC ABNORMAL FINDING OF LUNG FIELD TECHNIQUE: Helically acquired images were obtained of the chest without intravenous contrast. This CT exam was performed using one or more of the following dose reduction techniques: automated exposure control, adjustment of the mA and/or kV according to patient size, and/or use of iterative reconstruction technique. RADIATION DOSE: CTDIvol = 8.20 mGy, DLP = 299.46 mGy-cm. COMPARISON: May 04, 2024, there was some patchy opacity right lung and some consolidation in the radial left lung base. FINDINGS: LUNGS AND PLEURAL SPACES: Similar mild peripheral streaky linear opacities and tree-in-bud appearance in the lateral right upper lobe. Minimally thick-walled pulmonary cystic lesion with adjacent nodule in the left lingula, adjacent nodular opacity of roughly 1.3 cm x 1 cm. There is no central airway obstruction but there is narrowing of left lower lobe segmental branches suspicious for mucous plugging and there is a similar zone airspace disease with minimal air bronchograms in the medial left lung base. Similar nodular focus in the right middle lobe adjacent to major fissure. No pleural effusion or thickening. HEART: Trace pericardial effusion. Marked left anterior descending coronary artery calcification and/or stent and mild right coronary artery calcifications. Heart size is normal. MEDIASTINUM: Unremarkable. No mediastinal or hilar adenopathy. Esophagus is unremarkable. No hiatal hernia. THYROID: Small hypodensity in the right thyroid is newly seen, possibly obscured by contrast and streak artifact on prior exam, hypodense lesion of roughly 1.5 cm AP. BONES/JOINTS: Pectus excavatum deformity again noted. Degenerative spine changes. No suspicious lytic or blastic abnormality. VASCULATURE: See above. GALLBLADDER AND BILE DUCTS: Unremarkable. No intra- or extrahepatic biliary ductal dilation. No suspicious findings in the partially included upper abdomen. The gallbladder and proximal pancreas are not fully included. CT/Chest without Contrast IMPRESSION: 1. Similar complex multifocal findings. 2. Including a zone of dense consolidation and air bronchograms without central airway obstruction in the left lung base, suspicion of pneumonia. 3. Nodular focus seen in the left lingula and nodular focus in the right middle lobe adjacent to the major fissure will require at least 3 month follow-up to ensure stability or resolution. 4. Mild indeterminate cojqup-wdxs-wh-bud findings the right upper lobe are similar. 5. Newly seen 1.5 cm x 1.4 cm probable cyst in the right thyroid lobe, Hounsfield units 7. RECOMMENDATIONS: Correlate with evidence of persistent left basilar pneumonia. Bronchoscopy could be considered if thought to be indicated. At least 3 month follow-up initially is recommended for the bilateral nodular foci. The prior exam was 1 month ago. Consider thyroid ultrasound. Possible right lobe cyst but it was not previously seen suggesting enhancing nodule. Electronically Signed: Kianna Rogers MD at 18:38 EDT ,
== END | disposition home or self-care (01) ==
PROVIDERS: PCP Family Medicine; Referring Provider Nurse Practitioner Family; Visit Provider Nurse Practitioner Family
DX: R91.8 Other nonspecific abnormal finding of lung field (principal)
CPT/HCPCS: 71250

== ENCOUNTER → 2024-07-05 | Outpatient (CLI) | payer MEDICARE, SELFPAY ==
--- NOTE | 2024-07-05 12:57 | US_ITS ---
EXAM: US SOFT TISSUES HEAD AND NECK, THYROID CLINICAL INDICATION: NODULE TECHNIQUE: Greyscale and color doppler imaging was performed of the thyroid gland. COMPARISON: No relevant prior studies available. FINDINGS: LEFT THYROID LOBE: Left lobe measures 4.7 x 1.6 x 1.3 cm. The left thyroid lobe contains 3 measured nodules largest measuring 1 cm. The second largest nodule measures up to 7 mm and is most likely benign. Homogeneous echotexture with normal vascularity. RIGHT THYROID LOBE: 3 right-sided thyroid nodules are measured, the largest measuring up to 1.7 cm and is located at the lower pole level. This appears solid. More posteriorly is a lesion that may be of parathyroid origin, measuring up to 1 cm. A right thyroid cystic lesion which is likely benign, measures 6 mm. Right lobe measures 5.0 x 1.7 x 1.2 cm. Homogeneous echotexture with normal vascularity. ISTHMUS: Thyroid isthmus measures 2 mm in thickness. No thyroid nodules are present. US/Thyroid IMPRESSION: 1.7 cm right-sided TR4 nodule is moderately suspicious; recommend fine needle aspiration given size greater than or equal to 1.5 cm. Other smaller nodules as detailed above. Electronically Signed: Luis Manuel Moore MD at 2:50 EST ,
== END | disposition home or self-care (01) ==
PROVIDERS: PCP Family Medicine; Visit Provider Nurse Practitioner Family
DX: E04.1 Nontoxic single thyroid nodule (principal)
CPT/HCPCS: 76536

== ENCOUNTER 2024-11-21 15:21 | Inpatient (IN) | payer MEDICARE, SELFPAY ==
[2024-11-21] VITALS (13 sets, daily range): BP systolic 117–148; BP diastolic 77–110; PULSE 72–94; RESP 17–25; TEMP 36.5–37.2; O2SAT 93–96; BMI 24.0; BMI 28.8
--- NOTE | 2024-11-21 15:47 | EKG12_ITS ---
Test Reason : SOB Blood Pressure : */* mmHG Vent. Rate : 82 BPM Atrial Rate : 82 BPM P-R Int : 210 ms QRS Dur : 74 ms QT Int : 402 ms P-R-T Axes : 66 14 48 degrees QTcB Int : 469 ms Sinus rhythm with 1st degree A-V block Possible Left atrial enlargement Cannot rule out Anterior infarct , age undetermined Abnormal ECG Confirmed by WINDY DICKEY, YUKI ([id number]), production editor MARLON MARKS ([id number]) on 11/22/2024 9:46:23 AM Referred By: Confirmed By: YUKI TEMPLE MD
--- NOTE | 2024-11-21 15:47 | CT_ITS ---
PROCEDURE: CTA CHEST W/WO CONTRAST 11/21/2024 REASON FOR EXAM: SOB, HX OF PNEUMONIA AND ABNORMAL CT TECHNIQUE: CTA imaging of the chest, abdomen and pelvis without and with intravenous contrast. Coronal and Sagittal reconstruction series were provided. 3D, 3D post processing, 3D reconstructions, Maximum intensity projection (MIPs) Volume rendering and Shaded surface rendering was provided. CONTRAST: 100 cc Isovue 370 IV One or more dose reduction techniques were used (e.g., Automated exposure control, adjustment of the mA and/or kV according to patient size, use of iterative reconstruction technique). RADIATION DOSE SUMMARY: CTDlvol: 14.58 mGy DLP: 519.09 mGycm COMPARISON: None available at this time FINDINGS: There is nonocclusive filling defect seen at the left lower lobe basal segmental division for example axial 145 series 2. Occlusive appearing defect is seen at the posterior basal segmental division beyond for example axial 131. A linear nonocclusive defect is seen at the medial basal segmental artery of the right lower lobe axial 116 and 111 possibly acute or subacute. No large central or hilar pulmonary embolism. Central pulmonary arteries appear within limits for size. No CT evidence to suggest right heart strain. No pericardial or pleural effusion. Thoracic aorta appears within limits. Moderate appearing LAD coronary calcification noted. Limited images of the upper abdomen appear within limits. The central airways appear patent. Diffuse bronchial wall thickening suggests bronchitis. Jvhsj-vfvwogr-olkc-left upper lobe patchy ground-glass opacity and septal thickening may represent inflammatory infectious process, possible pulmonary edema. Bandlike opacity right middle lobe and right lower lobe may represent atelectasis. Areas of septal thickening at the lower lobes may be due to interstitial edema. Focal area of consolidation left lower lobe for example axial 89 overall appears larger than the segment with occlusion and may represent a combination of pneumonia and pulmonary infarct. Pulmonary cystic space within the lingula, incidental. 7-8 mm subpleural noncalcified nodular density right lower lobe axial 89. Visualized osseous structures appear within limits. CT/CTA Chest W/WO Contrast IMPRESSION: Findings are concerning for bilateral lower lobe basal segmental pulmonary embo lism as above. Focal area of consolidation left lower lobe for example axial 89 overall appear s larger than the segment with occlusion and may represent a combination of pneumonia and pulmonary infarct. Perihilar changes which may be inflammatory or infectious with possibility of p ulmonary edema not excluded as above. Moderate appearing LAD coronary calcification noted. 7-8 mm subpleural noncalcified nodular density right lower lobe axial 89. Atte ntion on follow-up. Red Alert: CTA CHEST W/WO CONTRAST The critical information above was relayed directly by me by telephone to Dewayne Espana on 11/21/2024 at 5:50 pm with readback verification. Reading Location: [id number]
--- NOTE | 2024-11-21 15:51 | EX.ED.DYSGE1 ---
HPI History of Present Illness Chief Complaint: Shortness of Breath Narrative Narrative: Patient is a 79-year-old female with a past medical history of hypokalemia, hypertension who presents to the emergency department with chief complaint of shortness of breath and difficulty breathing. According to the patient little bit ago she had worsening shortness of breath therefore she called EMS to have her brought here further evaluation management. Per EMS they state that she was hypoxic on room air to 80% and they placed her on oxygen was able to improve this therefore they placed her on a short trial of CPAP with a DuoNeb given and Benadryl. They state they gave Benadryl because the patient thought she was having allergic reaction to tobramycin. I discussed with the patient and she states that she took tobramycin earlier this morning and she states that she has taken this in the past without difficulty. She states that she did not break out in a rash or hives. Patient states that she has been coughing a lot lately and had progressively worsening shortness of breath. [facility] Medical History Non-Hodgkin lymphoma in adult Fibromyalgia Anxiety and depression Asthma HLD (hyperlipidemia) HTN (hypertension) Pneumonia Home Medications ?Medication ?Instructions ?Recorded ?Last Taken ?Type albuterol sulfate 90 mcg/actuation 2 puff inhalation Q6H PRN wheezing 05/04/24 Unknown History aerosol inhaler SOB atorvastatin 10 mg tablet 5 mg PO QHS HLD 05/04/24 11/20/24 History hydrochlorothiazide 25 mg tablet 25 mg PO DAILY bp 05/04/24 11/21/24 History methenamine hippurate 1 gram tablet 1 g PO BID . 05/04/24 11/21/24 History metoprolol succinate 100 mg 100 mg PO DAILY blood pressure 05/04/24 11/20/24 History tablet,extended release 24 hr sertraline 100 mg tablet 150 mg PO DAILY . 05/04/24 11/20/24 History timolol maleate 0.5 % eye drops 1 drp ophthalmic (eye) DAILY . 05/04/24 11/21/24 History tiotropium bromide 2.5 2 puff inhalation QHS COPD 05/04/24 11/20/24 History mcg/actuation mist for inhalation (Spiriva Respimat) losartan 50 mg tablet 50 mg PO DAILY 1 month #30 tabs 05/08/24 11/20/24 Rx saliva substitute combo no.9 15 ml mucous membrane 5X/DAY PRN 05/08/24 11/20/24 Rx (Biotene Dry Mouth Oral Rinse Dry Mouth #0 mL mouthwash) albuterol sulfate 2.5 mg/3 mL 2.5 mg inhalation Q4H PRN 11/21/24 11/21/24 History (0.083 %) solution for nebulization shortness of breath or wheezing ascorbic acid (vitamin C) 1,000 mg 1 g PO BID 11/21/24 11/21/24 History tablet (C-1000) tobramycin 300 mg/5 mL in 0.225 % 5 ml inhalation BID 11/21/24 11/21/24 History sodium chloride for nebulization Allergy/AdvReac Type Severity Reaction Status Date / Time fluticasone (From Advair Allergy Severe Anaphylaxis Verified 11/21/24 17:22 Diskus) lisinopril Allergy Severe Angioedema Verified 11/21/24 17:22 salmeterol (From Advair Allergy Severe Anaphylaxis Verified 11/21/24 17:22 Diskus) alendronate sodium (From Allergy Unknown PT UNSURE Verified 11/21/24 17:22 Fosamax) OF REACTION brimonidine Allergy Unknown NEEDS Verified 11/21/24 17:22 FOLLOW-UP celecoxib (From Celebrex) Allergy Unknown NEEDS Verified 11/21/24 17:22 FOLLOW-UP cephalexin (From Keflex) Allergy Unknown NEEDS Verified 11/21/24 17:22 FOLLOW-UP grepafloxacin (From Raxar) Allergy Unknown NEEDS Verified 11/21/24 17:22 FOLLOW-UP Influenza Virus Vaccines Allergy Unknown NEEDS Verified 11/21/24 17:22 (flu vaccine) FOLLOW-UP mannitol (From Reclast) Allergy Unknown NEEDS Verified 11/21/24 17:22 FOLLOW-UP methylprednisolone Allergy Unknown PT UNSURE Verified 11/21/24 16:16 OF REACTION nitrofurantoin (From Allergy Unknown NEEDS Verified 11/21/24 17:22 Macrodantin) FOLLOW-UP prednisone Allergy Unknown PT UNSURE Verified 11/21/24 17:22 OF REACTION propoxyphene (From Darvon) Allergy Unknown PT UNSURE Verified 11/21/24 17:22 OF REACTION Quinolones Allergy Unknown PT UNSURE Verified 11/21/24 17:22 OF REACTION sulfamethoxazole (From Allergy Unknown PT UNSURE Verified 11/21/24 17:22 Bactrim) OF REACTION trimethoprim (From Bactrim) Allergy Unknown PT UNSURE Verified 11/21/24 17:22 OF REACTION water for injection,sterile Allergy Unknown NEEDS Verified 11/21/24 17:22 (From Reclast) FOLLOW-UP zoledronic acid (From Allergy Unknown NEEDS Verified 11/21/24 17:22 Reclast) FOLLOW-UP Sulfa (Sulfonamide Allergy Swelling Verified 11/21/24 16:16 Antibiotics) (sulfa drugs) Family History (Updated 11/21/24 @ 19:[address] Deandra Hood MD) Mother CAD (coronary artery disease) Heart disease Hypertension Father CAD (coronary artery disease) Heart disease Hypertension Surgical History History of breast biopsy History of tonsillectomy and adenoidectomy H/O section Social History (Updated 11/21/24 @ 19:[address] Deandra Hood MD) household members: spouse Smoking Status: Never smoker alcohol intake: never substance use type: does not use ROS ROS ED ROS Narrative Constitutional: Denies fevers, chills, headaches colitis, Cardiovascular: Denies chest pain or palpitations Respiratory: Complains of increased sputum production with cough as well as shortness of breath Abdomen: Denies abdominal pain nausea vomit diarrhea : Denies urinary symptoms Neurological: Denies numbness, weakness, tingling Musculoskeletal: Denies back pain Skin: Denies rashes or lesions EXAM Physical Exam Narrative Exam Narrative: General: Patient lying in bed rest comfortably did not appear to be acute distress Head: Atraumatic, normocephalic Eyes: PERRL bilaterally, EOMI bilateral, no conjunctival injection noted Neck: Soft, supple, trachea midline Cardiovascular: Regular rate and rhythm Respiratory: Diminished breath sounds bilaterally with faint end expiratory wheezing noted bilaterally Abdomen: Soft, nondistended, tender to palpation Extremities: +4/5 strength noted in the bilateral upper and lower extremities, no pedal edema on exam Neurological: Patient follow commands and that she was at [facility] years 2024 Skin: Warm, dry, intact no rashes or lesions noted Const Vital Signs: 11/21/24 15:22 11/21/24 15:22 11/21/24 15:32 Temperature 98.9 F 98.9 F Temperature Source Temporal Temporal Pulse Rate 85 84 Respiratory Rate 20 H 25 H Respiratory Effort Short of Breath Respiratory Depth Shallow Respiratory Pattern Tachypnea Blood Pressure 143/108 H 148/108 H Blood Pressure Mean 119 121 Pulse Ox 95 95 Oxygen Delivery Method Nasal Cannula Nasal Cannula Oxygen Flow Rate (L/min) 4 11/21/24 15:47 11/21/24 16:32 11/21/24 16:33 Temperature 98.6 F Temperature Source Temporal Pulse Rate 76 Respiratory Rate 20 H Respiratory Effort Respiratory Depth Respiratory Pattern Blood Pressure 133/95 H Blood Pressure Mean 107 Pulse Ox 94 96 Oxygen Delivery Method Nasal Cannula Nasal Cannula Nasal Cannula Oxygen Flow Rate (L/min) 2 2 11/21/24 16:33 11/21/24 17:00 11/21/24 18:00 Temperature 98.6 F 99 F Temperature Source Temporal Temporal Pulse Rate 74 76 88 Respiratory Rate 17 20 H 25 H Respiratory Effort Respiratory Depth Respiratory Pattern Normal Blood Pressure 133/95 H 139/101 H Blood Pressure Mean 107 113 Pulse Ox 94 95 Oxygen Delivery Method Nasal Cannula Nasal Cannula Oxygen Flow Rate (L/min) 2 2 11/21/24 19:00 11/21/24 19:00 Temperature 99 F Temperature Source Temporal Pulse Rate 86 86 Respiratory Rate 21 H 19 H Respiratory Effort Respiratory Depth Respiratory Pattern Blood Pressure 126/110 H 135/95 H Blood Pressure Mean 115 108 Pulse Ox 96 96 Oxygen Delivery Method Nasal Cannula Oxygen Flow Rate (L/min) 2 MDM MDM MDM Narrative Medical decision making narrative: Patient is a 79-year-old female who presents to the [facility] from with a chief complaint of shortness of breath and cough. On the differential diagnose includes but not limited to pneumothorax, PE, pneumonia, ACS, CHF. Once workup is obtained reviewed she will be reevaluated. Patient will be given 2 more DuoNebs as well as Solu-Medrol. She will be given 30 cc/kg bolus of IV fluids this was ordered at 1550. Patient's CBC was reviewed showed a leukocytosis of 11,000, hemoglobin is 14.7, platelet count was noted be 339. Patient INR 1.2, PT of 14.2, sodium was 131, potassium normal 4.8, creatinine was 0.57. Patient has lactic acidosis at 2.3, AST and ALT were 63 and 37 respectively. Patient's troponin was 62 with a delta troponin pending. Patient's EKG was reviewed which showed sinus rhythm with evidence of first-degree AV block with a rate of 82 beats per minutes. Her troponin is likely elevated secondary to her hypoxia. Patient proBNP was 1243. Patient's urinalysis reviewed showed 25 leukocyte esterase negative nitrates microscopic exam pending. Patient CTA of her chest was reviewed which showed findings concerning for bilateral lower lobe segmental pulmonary emboli. Focal area of consolidation left lower lobe for example actually real 9 appears larger than the segment with occlusion may represent a combination of pneumonia and pulmonary infarct. Perihilar changes which may be inflammatory infectious with possibility of pulmonary edema not excluded moderate appearing LAD coronary calcification noted. 7 to 8 mm subpleural noncalcified nodule density right lower lobe noted. Patient was ordered vancomycin and cefepime at 1756. At 6:58 PM reperfusion assessment performed and she remains normotensive to hypertensive therefore no vasopressors indicated. Patient's case will be discussed with hospitalist for admission as she became hypoxic with a little movement here in the emergency department. Patient case was discussed with hospitalist Dr. Hood who accept patient for admission. She is requesting heparin therefore this was ordered with a bolus. I updated the patient and family numbers at bedside they are agreeable this plan all question concerns answered at bedside. Lab Data Labs: Laboratory Results - last 24 hr 11/21/24 11/21/24 11/21/24 15:59 17:40 18:13 WBC 11.6 H RBC 4.83 Hgb 14.7 Hct 43.0 MCV 89.0 MCH 30.4 MCHC 34.2 RDW Std Deviation 42.0 RDW Coeff of Ayesha 12.9 Plt Count 339 MPV 9.4 Immature Gran % (Auto) 0.400 Neut % (Auto) 70.5 H Lymph % (Auto) 18.4 L [place] % (Auto) 6.9 Eos % (Auto) 3.2 Baso % (Auto) 0.6 Absolute Neuts (auto) 8.2 H Absolute Lymphs (auto) 2.14 Nucleated RBC % 0 PT 14.2 INR 1.1 APTT 28.9 Sodium 131 L Potassium 4.8 Chloride 95 L Carbon Dioxide 21.9 Anion Gap 14 BUN 12 Creatinine 0.57 L Estim Creat Clear Calc 56.58 Est GFR (MDRD) Non-Af 92 BUN/Creatinine Ratio 20.0 Glucose 150 H Lactic Acid 2.3 H* Calcium 8.8 Total Bilirubin 0.37 AST 63 H ALT 37 H Alkaline Phosphatase 117 H Troponin T High Sens 62 H* Troponin T Hi Sens 2 Hr 198 H* NT pro BNP II 1243 Total Protein 7.5 Albumin 3.7 Globulin 3.8 Albumin/Globulin Ratio 1.0 Urine Color Yellow Urine Clarity Sl. Cloudy Urine pH 6.5 Ur Specific [place] 1.010 Urine Protein 100 H Urine Glucose (UA) Normal Urine Ketones Negative Urine Occult Blood 10 H Urine Nitrite Negative Urine Bilirubin Negative Urine Urobilinogen Normal Ur Leukocyte Esterase 25 H Urine RBC 0-5 SEEN Urine WBC 10-25 SEEN Ur Squamous Epith Cells 0-5 SEEN Urine Bacteria RARE Urine Mucus 0 SEEN Radiography Diagnostic Testing: Clinical Impression(s) from Imaging Studies Chest CTA 11/21/24 15:47 IMPRESSION: Findings are concerning for bilateral lower lobe basal segmental pulmonary embolism as above. Focal area of consolidation left lower lobe for example axial 89 overall appears larger than the segment with occlusion and may represent a combination of pneumonia and pulmonary infarct. Perihilar changes which may be inflammatory or infectious with possibility of pulmonary edema not excluded as above. Moderate appearing LAD coronary calcification noted. 7-8 mm subpleural noncalcified nodular density right lower lobe axial 89. Attention on follow-up. Red Alert: CTA CHEST W/WO CONTRAST The critical information above was relayed directly by me by telephone to Dewayne García on 11/21/2024 at 5:50 pm with readback verification. Reading Location: [id number] Discharge Plan Dx/Rx/DC Orders Clinical Impression: Acute hypoxic respiratory failure, Pneumonia, Pulmonary embolism, Type 2 myocardial infarction Disposition Disposition: Acute Care Hospital [facility] Discharge Date/Time: 11/21/24 20:12
[2024-11-21 16:18] LABS: Absolute Lymphocyte Count 2.14 X10^3/uL (0.83-4.51); Absolute Neutrophil Count 8.2 X10^3/uL (2.0-7.7); Basophil# 0.07 X10^3/uL; Basophil% 0.6 % (0-1); Eosinophil# 0.37 X10^3/uL; Eosinophils% 3.2 % (0-5); Hemoglobin 14.7 g/dL (12.0-15.0); Lymphocyte # 2.14 X10^3/ul (0.83-4.51); Lymphocyte % 18.4 % (19-41); Mean Corp Hgb Conc 34.2 g/dL (32-36); Mean Corpuscular Hgb 30.4 pg (27.0-32.0); Mean Platelet Vol. 9.4 fl (6.2-12.0); Monocyte% 6.9 % (0-10); NRBC Flagged by Analyzer 0 % (0-5); Neutrophil # 8.21 X10^3/uL (2.7-7.7); Neutrophil % 70.5 % (47-70); Platelet Count 339 K/mm3 (150-450); RBC Distribution Width CV 12.9 % (11.6-14.6); Red Blood Count 4.83 M/mm3 (4.2-5.4); White Blood Count 11.6 K/mm3 (4.4-11.0)
[2024-11-21] MEDS: 0.9% Normal Saline (1000mL) 1,000 ML 999 ML IV ×3 (16:26→19:44)
[2024-11-21] MEDS: Ipratropium/Albuterol Sulfate 3 ML AMPUL.NEB INHALATION ×3 (16:31→22:46)
[2024-11-21 16:45] LABS: Pro- Brain NATRIURETIC PEPTIDE 1243 pg/mL (<=1800)
[2024-11-21 16:51] LABS: AST(SGOT) 63 U/L (<=31); Alanine Aminotransfer ALT/SGPT 37 U/L (<=34); Albumin, Serum 3.7 g/dL (3.4-4.8); Alkaline Phosphatase 117 U/L (35-104); Anion Gap 14 (5-15); BUN 12 mg/dL (4-19); Calcium,Total 8.8 mg/dL (7.6-11.0); Carbon Dioxide 21.9 mmol/L (21.0-32.0); Chloride 95 mmol/L (98-108); Creatinine, Serum 0.57 mg/dL (0.70-1.20); EST Glomerular Filtration Rate 92 (>60); Estimated Creatinine Clearance 56.58 ml/min (50-250); Globulin 3.8 g/dL (2.2-4.2); Glucose 150 mg/dL (70-99); Potassium 4.8 mmol/L (3.3-5.1); Protein, Total 7.5 g/dL (5.9-8.4); Sodium Level 131 mmol/L (133-145); Total Bilirubin 0.37 mg/dL (0.00-1.30)
[2024-11-21 16:59] LABS: Lactic Acid 2.3 mmol/L (0.0-2.0)
[2024-11-21 17:08] LABS: International Normalized Ratio 1.1; Prothrombin Time (Protime)PT. 14.2 SECONDS (11.7-14.9)
[2024-11-21 17:09] LABS: Partial Thromboplast Time 28.9 Seconds (24.1-36.2)
[2024-11-21 17:16] LABS: Troponin T High Sensitivity 62 ng/L (<=14)
[2024-11-21 17:45] LABS: Mucous, Urine 0 SEEN /hpf (<or=2+)
[2024-11-21 18:30] LABS: Color, Urine Yellow (Yellow); Glucose, Dipstick Normal (Normal); Ketone-Dipstick Negative (Negative); Leukocyte Esterase-Dipstick 25 /ul (Negative); Nitrite-Dipstick Negative (Negative); Occult Blood-Urine 10 /ul (Negative); Protein-Dipstick 100 mg/dl (Negative); Urine Bilirubin Dipstick Negative (Negative); Urine Clarity Sl. Cloudy (Clear); Urine Urobilinogen Normal (Normal); Urine pH 6.5 (5.0 - 8.0)
[2024-11-21] MEDS: Cefepime HCl 2 GM in 0.9% Normal Saline (100mL MB+) 100 ML IV (18:53)
[2024-11-21 18:58] LABS: Troponin T High Sens 2 HR 198 ng/L (<=14)
--- NOTE | 2024-11-21 19:10 | HP.PCM.HOS_ITS ---
HPI - General General Date of Admission: 11/21/24 Date of Service: 11/21/24 Chief Complaint: Dyspnea, cough. HPI Narrative The patient is an 79 y/o F w/ PMHx: Remote Hx NH Lymphoma diagnosed remotely with no treatment per patient, HTN, HLD, Asthma, Anxiety and Depression, Fibromyalgia who presents to the [facility] ED on 11/21/2024 with history of dyspnea, worsening for the last 24 hours prompting EMS call noted to be hypoxic upon their initial evaluation 8% placed on oxygen at that time in addition to transition to a short trial of CPAP with DuoNeb therapy and Benadryl which they gave because they were concerned that she was possibly having an allergic reaction tobramycin with eventual ED evaluation be cautious. Patient reported that she took tobramycin earlier in the morning and she has been taking in the past without issue. She denies any recent rash or hives. She does report that she has been coughing more frequently and her dyspnea has been progressive. Workup in the ED included T98.9 Temporal, heart rate 85, BP 143/108, respiratory rate 20, 95% on 4 L nasal cannula with most recent repeat vitals T99 temporal, heart rate 88, BP 139/101, respiratory rate 25, 95% on 2 L nasal cannula, CBC with WBC 11.6, he 1 14.7, platelets 09/23/1939 with mild left shift, unremarkable coags, CMP with sodium 131, chloride 95, BUN/creat 12/0.57, GFR 92, glucose 150, lactic acid 2.3, hepatic profile with AST/ALT 63/37, alk phos 117, BNP 1243, initial troponin 62 with repeat delta 198, urinalysis not marked appearing however finalization pending, chest CTA with findings concerning for bilateral lower lobe basal segmental pulmonary embolism, focal area of consolidation left lower lobe appearing larger than the segment with occlusion and possibly could represent commendation of pneumonia and infarct, perihilar changes possibly inflammatory or infectious with possibility pulmonary edema, moderate appearing LAD coronary calcification, 7 to 8 mm subpleural noncalcified nodular density in the right lower lobe axial 89, EKG with SR with 1 AVB with AR 210 without acute evidence of ischemia. In the ED patient administered cefepime 2 g IV x 1, vancomycin 1000 mg IV x 1, DuoNeb therapy x 2. [facility] Medical History Non-Hodgkin lymphoma in adult Fibromyalgia Anxiety and depression Asthma HLD (hyperlipidemia) HTN (hypertension) Pneumonia Home Medications ?Medication ?Instructions ?Recorded ?Last Taken ?Type albuterol sulfate 90 mcg/actuation 2 puff inhalation Q 6H PRN wheezing 05/04/24 Unknown History aerosol inhaler SOB atorvastatin 10 mg tablet 5 mg PO QHS HLD 05/04/2410/15 History hydrochlorothiazide 25 mg tablet 25 mg PO DAILY bp 11/21/24 History methenamine hippurate 1 gram tablet 1 g PO BID . 05/0411/21/24 History metoprolol succinate 100 mg 100 mg PO DAILY blood pres sure 05/04/24 11/20/24 History tablet,extended release 24 hr sertraline 100 mg tablet 150 mg PO DAILY . 05/04/24 0 11/20/24 History timolol maleate 0.5 % eye drops 1 drp ophthalmic (eye) DAILY . 05/04/24 11/21/24 History tiotropium bromide 2.5 2 puff inhalation QHS COPD 0 05/04/24 11/20/24 History mcg/actuation mist for inhalation (Spiriva Respimat) losartan 50 mg tablet 50 mg PO DAILY 1 month #30 t abs 05/08/24 11/20/24 Rx saliva substitute combo no.9 15 ml mucous membrane 5X/ DAY PRN 05/08/24 11/20/24 Rx (Biotene Dry Mouth Oral Rinse Dry Mouth #0 mL mouthwash) albuterol sulfate 2.5 mg/3 mL 2.5 mg inhalation Q4H AR N 11/21/24 11/21/24 History (0.083 %) solution for nebulization shortness of breat h or wheezing ascorbic acid (vitamin C) 1,000 mg 1 g PO BID 11/21/24 11/21/24 History tablet (C-1000) tobramycin 300 mg/5 mL in 0.225 % 5 ml inhalation BID 11/21/24 11/21/24 History sodium chloride for nebulization Allergy/AdvReac Type Severity Reaction Status Date / Time fluticasone (From Advair Allergy Severe Anaphylaxis Verified 11/21/24 17:22 Diskus) lisinopril Allergy Severe Angioedema Verified 11/21/24 17:22 salmeterol (From Advair Allergy Severe Anaphylaxis Verified 11/21/24 17:22 Diskus) alendronate sodium (From Allergy Unknown PT UNSURE Verified 11/21/24 17:22 Fosamax) OF REACTION brimonidine Allergy Unknown NEEDS Verified 11/21/24 17:22 FOLLOW-UP celecoxib (From Celebrex) Allergy Unknown NEEDS Verified 11/21/24 17:22 FOLLOW-UP cephalexin (From Keflex) Allergy Unknown NEEDS Verified 11/21/24 17:22 FOLLOW-UP grepafloxacin (From Raxar) Allergy Unknown NEEDS Verified 11/21/24 17:22 FOLLOW-UP Influenza Virus Vaccines Allergy Unknown NEEDS Verified 11/21/24 17:22 (flu vaccine) FOLLOW-UP mannitol (From Reclast) Allergy Unknown NEEDS Verified 11/21/24 17:22 FOLLOW-UP methylprednisolone Allergy Unknown PT UNSURE Verified 11/21/24 16:16 OF REACTION nitrofurantoin (From Allergy Unknown NEEDS Verified 11/21/24 17:22 Macrodantin) FOLLOW-UP prednisone Allergy Unknown PT UNSURE Verified 11/21/24 17:22 OF REACTION propoxyphene (From Darvon) Allergy Unknown PT UNSURE Verified 11/21/24 17:22 OF REACTION Quinolones Allergy Unknown PT UNSURE Verified 11/21/24 17:22 OF REACTION sulfamethoxazole (From Allergy Unknown PT UNSURE Verified 11/21/24 17:22 Bactrim) OF REACTION trimethoprim (From Bactrim) Allergy Unknown PT UNSURE Verified 11/21/24 17:22 OF REACTION water for injection,sterile Allergy Unknown NEEDS Verified 11/21/24 17:22 (From Reclast) FOLLOW-UP zoledronic acid (From Allergy Unknown NEEDS Verified 11/21/24 17:22 Reclast) FOLLOW-UP Sulfa (Sulfonamide Allergy Swelling Verified 11/21/24 16:16 Antibiotics) (sulfa drugs) Family History (Updated 11/21/24 @ 19:[address] Deandra Hood MD) Mother CAD (coronary artery disease) Heart disease Hypertension Father CAD (coronary artery disease) Heart disease Hypertension Surgical History History of breast biopsy History of tonsillectomy and adenoidectomy H/O section Social History (Updated 11/21/24 @ 19:[address] Deandra Hood MD) household members: spouse Smoking Status: Never smoker alcohol intake: never substance use type: does not use ROS ROS Narrative Admission Review of Systems: CONSTITUTIONAL: No weight loss, fever, chills, + weakness or fatigue. HEENT: Eyes: No visual loss, blurred vision, double vision or yellow sclerae. Ears, Nose, Throat: No hearing loss, sneezing, congestion, runny nose or sore throat. SKIN: No rash or itching, lesions, wounds. CARDIOVASCULAR: No chest pain, chest pressure or chest discomfort, palpitations, edema, orthopnea, syncopal events. RESPIRATORY: + Dyspnea, worse with exertion, cough, not markedly productive. No wheezing, hemoptysis. GASTROINTESTINAL: No anorexia, nausea, vomiting or diarrhea, abdominal pain, melena, BRBPR. GENITOURINARY: No dysuria, frequency, urgency or retention. NEUROLOGICAL: No headache, dizziness, syncope, paralysis, ataxia, numbness or tingling in the extremities, focal weakness, change in bowel or bladder control, seizure. MUSCULOSKELETAL: + muscle, back pain, joint pain or stiffness. HEMATOLOGIC: No anemia. + Easy bleeding/bruising. LYMPHATICS: + History of enlarged nodes. No history of splenectomy. PSYCHIATRIC: + History of anxiety and depression. ENDOCRINOLOGIC: No reports of sweating, cold or heat intolerance. No polyuria or polydipsia. ALLERGIES: + History of asthma. Vital Signs Vital Signs Vital Signs: 11/21/24 15:22 11/21/24 15:22 11/21/24 15:32 Temperature 98.9 F 98.9 F Temperature Source Temporal Temporal Pulse Rate 85 84 Respiratory Rate 20 H 25 H Respiratory Effort Short of Breath Respiratory Depth Shallow Respiratory Pattern Tachypnea Blood Pressure 143/108 H 148/108 H Blood Pressure Mean 119 121 Pulse Ox 95 95 Oxygen Delivery Method Nasal Cannula Nasal Cannula Oxygen Flow Rate (L/min) 4 11/21/24 15:47 11/21/24 16:32 11/21/24 16:33 Temperature 98.6 F Temperature Source Temporal Pulse Rate 76 Respiratory Rate 20 H Respiratory Effort Respiratory Depth Respiratory Pattern Blood Pressure 133/95 H Blood Pressure Mean 107 Pulse Ox 94 96 Oxygen Delivery Method Nasal Cannula Nasal Cannula Nasal Cannula Oxygen Flow Rate (L/min) 2 2 11/21/24 16:33 11/21/24 17:00 11/21/24 18:00 Temperature 98.6 F 99 F Temperature Source Temporal Temporal Pulse Rate 74 76 88 Respiratory Rate 17 20 H 25 H Respiratory Effort Respiratory Depth Respiratory Pattern Normal Blood Pressure 133/95 H 139/101 H Blood Pressure Mean 107 113 Pulse Ox 94 95 Oxygen Delivery Method Nasal Cannula Nasal Cannula Oxygen Flow Rate (L/min) 2 2 11/21/24 19:00 Temperature Temperature Source Pulse Rate 86 Respiratory Rate 21 H Respiratory Effort Respiratory Depth Respiratory Pattern Blood Pressure 126/110 H Blood Pressure Mean 115 Pulse Ox 96 Oxygen Delivery Method Oxygen Flow Rate (L/min) Weight Weight: 158 lb 15.253 oz Body Mass Index (BMI) 24.0 Physical Exam Narrative Physical Examination: General: Awake, alert, oriented x 3 and cooperative, seated upright in the ED bed in no apparent distress, pleasant however fatigued appearing. Skin: Normal color, normal turgor, no icterus, no cyanosis except occasional stage ecchymoses, abrasion. HEENT: AT/NC, EOMI, PERRLA, mildly dry MM, no carotid bruits or JVD noted. Lungs: CTA bilaterally, moderate effort, mild decrease BL bases, no rales, ronchi or wheezing. Heart: Regular rate and rhythm; no gallop, rub audible. Abdomen: Soft, NTTP, ND, normal BS, no appreciated HSM. Extremities: No cyanosis, no clubbing, no marked distal edema, bilateral lower extremity tenderness to palpation which she states is chronic with underlying fibromyalgia. Neurological: Patient awake, alert, oriented as noted, cognitive function intact; pupils equally reactive to light and accommodation, cranial nerves grossly normal, moving all 4 extremities, no focal deficits, strength moderately to severely globally decreased secondary to acute presentation. Psychiatric: Affect appears fatigued otherwise interactive, talkative, no acute evidence of depressive or anxiety feelings but does have underlying history. Results Lab / Micro Data 11/21/24 15:59 11/21/24 15:59 Labs: Laboratory Results - last 24 hr 11/21/24 15:59: WBC 11.6 H, RBC 4.83, Hgb 14.7, Hct 43.0, MCV 89.0, MCH 30.4, MCHC 34.2, RDW Std Deviation 42.0, RDW Coeff of Ayesha 12.9, Plt Count 339, MPV 9.4, Immature Gran % (Auto) 0.400, Neut % (Auto) 70.5 H, Lymph % (Auto) 18.4 L, Williamson % (Auto) 6.9, Eos % (Auto) 3.2, Baso % (Auto) 0.6, Absolute Neuts (auto) 8.2 H, Absolute Lymphs (auto) 2.14, Nucleated RBC % 0, PT 14.2, INR 1.1, APTT 28.9, Sodium 131 L, Potassium 4.8, Chloride 95 L, Carbon Dioxide 21.9, Anion Gap 14, BUN 12, Creatinine 0.57 L, Estim Creat Clear Calc 56.58, Est GFR (MDRD) Non- Af 92, BUN/Creatinine Ratio 20.0, Glucose 150 H, Lactic Acid 2.3 H*, Calcium 8.8, Total Bilirubin 0.37, AST 63 H, ALT 37 H, Alkaline Phosphatase 117 H, T roponin T High Sens 62 H*, NT pro BNP II 1243, Total Protein 7.5, Albumin 3.7, Globulin 3.8, Albumin/Globulin Ratio 1.0 11/21/24 17:40: Urine Color Yellow, Urine Clarity Sl. Cloudy, Urine pH 6.5, Ur Specific [place] 1.010, Urine Protein 100 H, Urine Glucose (UA) Normal, Urine Ketones Negative, Urine Occult Blood 10 H, Urine Nitrite Negative, Urine Bilirubin Negative, Urine Urobilinogen Normal, Ur Leukocyte Esterase 25 H 11/21/24 18:13: Troponin T Hi Sens 2 Hr 198 H* Micro: Microbiology 11/21/24 16:00 Mucosa - Nose SARS-CoV-2, Influenza & RSV (PCR) - Final Imaging Radiology Impression Chest CTA 11/21/24 15:47 IMPRESSION: Findings are concerning for bilateral lower lobe basal segmental pulmonary embolism as above. Focal area of consolidation left lower lobe for example axial 89 overall appears larger than the segment with occlusion and may represent a combination of pneumonia and pulmonary infarct. Perihilar changes which may be inflammatory or infectious with possibility of pulmonary edema not excluded as above. Moderate appearing LAD coronary calcification noted. 7-8 mm subpleural noncalcified nodular density right lower lobe axial 89. Attention on follow-up. Red Alert: CTA CHEST W/WO CONTRAST The critical information above was relayed directly by me by telephone to Dewayne García on 11/21/2024 at 5:50 pm with readback verification. Reading Location: [facility] Assessment & Plan Assessment/Plan (1) Pneumonia: (2) Hypoxia: (3) Bilateral pulmonary embolism: PLAN: Plan The patient is an 79 y/o F w/ PMHx: Remote Hx NH Lymphoma diagnosed remotely with no treatment per patient, HTN, HLD, Asthma/COPD, Anxiety and Depression, Fibromyalgia who presents to the [facility] ED on 11/21/2024 with history of dyspnea, worsening for the last 24 hours prompting EMS call noted to be hypoxic upon their initial evaluation 8% placed on oxygen at that time in addition to transition to a short trial of CPAP with DuoNeb therapy and Benadryl which they gave because they were concerned that she was possibly having an allergic reaction tobramycin with eventual ED evaluation be cautious. Patient reported that she took tobramycin earlier in the morning and she has been taking in the past without issue. She denies any recent rash or hives. She does report that she has been coughing more frequently and her dyspnea has been progressive. Workup in the ED included T98.9 Temporal, heart rate 85, BP 143/108, respiratory rate 20, 95% on 4 L nasal cannula with most recent repeat vitals T99 temporal, heart rate 88, BP 139/101, respiratory rate 25, 95% on 2 L nasal cannula, CBC with WBC 11.6, he 1 14.7, platelets 09/23/1939 with mild left shift, unremarkable coags, CMP with sodium 131, chloride 95, BUN/creat 12/0.57, GFR 92, glucose 150, lactic acid 2.3, hepatic profile with AST/ALT 63/37, alk phos 117, BNP 1243, initial troponin 62 with repeat delta 198, urinalysis not marked appearing however finalization pending, chest CTA with findings concerning for bilateral lower lobe basal segmental pulmonary embolism, focal area of consolidation left lower lobe appearing larger than the segment with occlusion and possibly could represent commendation of pneumonia and infarct, perihilar changes possibly inflammatory or infectious with possibility pulmonary edema, moderate appearing LAD coronary calcification, 7 to 8 mm subpleural noncalcified nodular density in the right lower lobe axial 89, EKG with SR with 1 AVB with AR 210 without acute evidence of ischemia. In the ED patient administered cefepime 2 g IV x 1, vancomycin 1000 mg IV x 1, Solu-Medrol 125 mg IV x 1 and DuoNeb therapy x 2. #1. Acute Hypoxia secondary to LLL Community Acquired PNA and BL lower lobe basal segmental pulmonary emboli with associated elevated cardiac enzyme of unclear significance, suspected primarily secondary to demand with hypoxia as well as pulmonary emboli and pneumonia as noted complicated by history of NH lymphoma previously remotely believed to have been in remission per patient report: Given currently stable vital signs will admit to the PCU, maintain on oxygen with wean as tolerated to room air, maintain on heparin drip, continue ATC duonebs, PRN albuterol, IV methylprednisolone, IV Rocephin and azithromycin, HOB, IS parameters, will obtain sputum Cx, urine antigens, respiratory viral panel, procalcitonin, echocardiogram requested. Will continue to cycle cardiac enzymes, BNP not markedly elevated. Magnesium level requested. PT/OT/case management consulted for discharge planning. #2. Hypertension: Continue home regimen including hydrochlorothiazide, losartan, metoprolol with her primary's as needed, PRN hydralazine. #3. Hyperlipidemia: Continue statin therapy, FLP in AM. #4. Anxiety and depression: We will continue patient home sertraline regimen. #5. NH lymphoma: Diagnosed remotely many decades ago, patient denies having been treated and reports that she prayed and following this was in remission, no routine follow-up with oncology reported. Certainly some concern given VTE history and did discuss that we will need to be very thorough and follow-up. #6. Fibromyalgia with chronic pain syndrome: Patient notes chronic discomfort routinely with underlying fibromyalgia, not on any chronic regimen, encourage offloading, fall precautions, PT/OT/case medicine consulted for discharge planning. #7. Chronic COPD/Asthma: Will maintain on oxygen with wean as tolerated to room air, complicated by current presentation, continue ATC duonebs, PRN albuterol, HOB, IS parameters. #8. DVT prophylaxis: Continue heparin drip as noted. #9. CODE status: Patient HCPOA is her and living will is currently in place. Discussed CODE status at length including difference between FULL code, DNR-CCA and DNR-CC status. Following discussions about the differences in these status, requested Full Code status. Advanced Care Planning Face to Face Time: 16 minutes. Charges/Coding Visit Charges Inpatient E&M: 49278 Init Hosp L3 Procedures Hospitalists Procedures: 68043 Advncd Care Plan 30 Min
[2024-11-21 19:16] LABS: Red Blood Cells-Urine 0-5 SEEN /hpf (0-5); Squamous Epithelial Cells - UA 0-5 SEEN /hpf (5-10); White Blood Cells 10-25 SEEN /hpf (0-5)
[2024-11-21 19:17] LABS: Bacteria RARE /hpf (None Seen)
[2024-11-21 20:08] LABS: Reflex Lactate? Y
--- NOTE | 2024-11-21 20:28 | ECHOCS_ITS ---
Reason For Study Reason For Study: ELEVATED TROPONINS, PEs Procedure This was a 2D Doppler, Color Flow transthoracic echocardiogram. The study was technically difficult. Due to body habitus & coughing. Contrast injection was performed. Left Ventricle Normal LV size. Moderate global left ventricular systolic dysfunction. The left ventricular ejection fraction is 40 %. There is moderate global hypokinesis of the left ventricle. Right Ventricle Normal RV size. Normal systolic function. Atria Normal left atrium. Normal right atrium. Mitral Valve Mitral valve not well visualized. Tricuspid Valve The tricuspid valve is not well visualized. Unable to estimate RV systolic pressure due to inadequate jet, pulmonary artery pressure probably normal. Aortic Valve The aortic valve is not well visualized. Great Vessels Normal sized aortic root. Pericardium/Pleural No pericardial effusion. Medication Diluted definity 2.0ml given slow IV push to enhance endocardial definition. MMode/2D Measurements & Calculations LVIDd: 4.3 cm IVSd: 1.0 cm Ao root diam: 3.4 cm LVIDs: 3.1 cm LVPWd: 1.2 cm FS: 26.9 % LAV(MOD-bp): 66.4 ml LVAd ap4: 19.6 cm2 LVAd ap2: 23.3 cm2 LAV(MOD-bp) Indexed: 35.8 ml/m2 LVLd ap4: 7.6 cm LVLd ap2: 8.0 cm LAV(MOD-sp2): 51.7 ml EDV(MOD-sp4): 41.2 ml EDV(MOD-sp2): 57.3 ml LAV(MOD-sp4): 71.2 ml EDV(sp4-el): 42.7 ml EDV(sp2-el): 57.6 ml LVAs ap4: 13.8 cm2 LVAs ap2: 16.1 cm2 LVLs ap4: 6.5 cm LVLs ap2: 6.7 cm ESV(MOD-sp4): 23.6 ml ESV(MOD-sp2): 32.4 ml ESV(sp4-el): 24.9 ml ESV(sp2-el): 33.3 ml EF(MOD-sp4): 42.6 % EF(MOD-sp2): 43.4 % EF(sp4-el): 41.8 % SV(MOD-sp4): 17.5 ml SV(MOD-sp2): 24.9 ml SV(sp4-el): 17.8 ml SI(MOD-sp4): 9.5 ml/m2 SI(MOD-sp2): 13.4 ml/m2 LA A4 area: 19.8 cm2 LA dimension(2D): 3.0 cm TAPSE: 2.0 cm Doppler Measurements & Calculations Lat Peak E' Kenneth: 7.7 cm/sec Med Peak E' Kenneth: 6.4 cm/sec MV V2 max: 108.7 cm/sec MV max P.7 mmHg MV V2 mean: 60.2 cm/sec MV mean P.7 mmHg MV V2 VTI: 21.7 cm MV P1/2t max kenneth: 87.4 cm/sec Ao V2 max: 125.6 cm/sec LV V1 max: 89.7 cm/sec MV P1/2t: 57.3 msec Ao max P.3 mmHg LV V1 max P.2 mmHg Ao V2 mean: 85.6 cm/sec LV V1 mean P.7 mmHg MV dec slope: 446.2 cm/sec2 Ao mean P.2 mmHg LV V1 mean: 61.4 cm/sec MVA(P1/2t): 3.8 cm2 Ao V2 VTI: 24.6 cm LV V1 VTI: 18.7 cm AV (velocity ratio): 0.76 PA V2 max: 66.6 cm/sec PA V2 mean: 51.8 cm/sec ECHO/Echo Complete W/ Contrast Interpretation Summary Normal LV size. Moderate global left ventricular systolic dysfunction. The left ventricular ejection fraction is 40 %. Unable to estimate RV systolic pressure due to inadequate jet, pulmonary artery pressure probably normal. Contrast injection was performed. Ordering Physician: Deandra Hood Referring Physician: Rito Zuleta Performed By: Eliza De Dios RDCS, RVT
--- NOTE | 2024-11-21 20:28 | CASEMGMT ---
Care Management Face to Face with patient for initial transition planning/care coordination assessment in the ED. 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 Patient alert and oriented. Patient willing to participate in assessment and is able to answer all questions appropriately. Care providers, pharmacy, and demographics verified. Admitting Diagnosis: Pneumonia, Hypoxia, Bilateral pulmonary embolism Other diagnosis history: hypokalemia, hypertension, fibromyalgia PCP: Merlyn Specialists: Dr. Roberts, pulmonology Preferred Pharmacy: [facility] ([place]) Insurance: [employer] Medicare Prescription Benefit: yes Living Will/HPOA: , [place]; patient states asking to bring in copy for [facility] LNOK: , [place]. Son in law, Rickey Dunn Living Arrangements: lives with in a mobile home with a ramp to enter. Reports being independent at baseline with all ADLs/IADLs, though states things are taking patient twice as long due to weakness and SOB Transportation: patients or son in law drive patient to all necessary appointments DME: albuterol through [employer], wheelchair, walker, canes, pulse ox, blood pressure cuff, ramp, azithromycin via nebulizer HHC: [facility] SNF/Rehab: none Community Resources: none Behavioral Health History: anxiety and depression, per chart Patient goals: Patient wishes to discharge home with HHC if recommended. Patient adamant that patient does not want to go to a SNF. Patient would like O2 through [employer] if patient qualifies for home O2. Disposition Plan: admission to acute; RN CM/SW to follow for discharge planning needs that may arise. Tatiana Cross, SOFTWARE TECHNICIAN, MEDICAL ASSISTANT CARDIOLOGY
[2024-11-21 20:47] LABS: Troponin T High Sens 4 HR 221 ng/L (<=14)
[2024-11-21 21:03] LABS: Bedside Glucose 108 mg/dL (74-106)
[2024-11-21 21:12] LABS: Procalcitonin 0.07 ng/mL (<=0.10)
[2024-11-21] MEDS: Vancomycin IV 1,000 MG/200 ML BAG 200 MG IV (21:37)
[2024-11-21 21:39] LABS: Magnesium 1.6 mg/dL (1.5-2.2)
[2024-11-21] MEDS: Heparin Injection (Vial) 5,000 UNIT/ML VIAL 4000 UNIT IV (21:39)
[2024-11-21] MEDS: HEPARIN/D5w 25,000 UNITS 25,000 UNITS/250 ML IV.SOLN. 11 UNITS CONT INF (21:48)
[2024-11-21 23:12] LABS: Lactic Acid 1.3 mmol/L (0.0-2.0)
[2024-11-21] MEDS: Ascorbic Acid 500 MG Tablet 1000 MG PO (23:23)
[2024-11-21] MEDS: Atorvastatin Calcium 10 MG Tablet 5 MG PO (23:23)
[2024-11-21] MEDS: Methenamine Hippurate 1 GM Tablet PO (23:23)
[2024-11-22] VITALS (10 sets, daily range): BP systolic 106–121; BP diastolic 63–80; PULSE 72–96; RESP 16–20; TEMP 36.5–36.8; O2SAT 87–96; BMI 29.9
[2024-11-22 04:04] LABS: Absolute Lymphocyte Count 3.31 X10^3/uL (0.83-4.51); Absolute Neutrophil Count 8.2 X10^3/uL (2.0-7.7); Basophil# 0.07 X10^3/uL; Basophil% 0.5 % (0-1); Eosinophil# 0.14 X10^3/uL; Eosinophils% 1.1 % (0-5); Hematocrit 38.4 % (37-47); Lymphocyte # 3.31 X10^3/ul (0.83-4.51); Lymphocyte % 25.7 % (19-41); Mean Corp Hgb Conc 33.9 g/dL (32-36); Mean Corpuscular Hgb 30.4 pg (27.0-32.0); Mean Corpuscular Volume 89.7 fL (81-99); Mean Platelet Vol. 9.4 fl (6.2-12.0); Monocyte# 1.16 X10^3/uL; NRBC Flagged by Analyzer 0 % (0-5); Neutrophil # 8.15 X10^3/uL (2.7-7.7); Neutrophil % 63.2 % (47-70); Platelet Count 294 K/mm3 (150-450); RBC Distribution Width SD 42.8 fl (35.1-43.9); Red Blood Count 4.28 M/mm3 (4.2-5.4); White Blood Count 12.9 K/mm3 (4.4-11.0)
[2024-11-22 04:36] LABS: Partial Thromboplast Time 108.5 Seconds (24.1-36.2)
[2024-11-22 05:42] LABS: Cholesterol 190 mg/dL (<=200); High Density Lipoprotein 48 mg/dL; Low Density Lipoprotein Calc. 128 mg/dL; Triglycerides 69 mg/dL; Very Low Density Lipoprotein 14 mg/dL (5-40); cholesterol:hdl ratio screen 3.97
[2024-11-22 05:48] LABS: ALB/GLOB Ratio 1.1 RATIO (0.9-2.4); AST(SGOT) 45 U/L (<=31); Alanine Aminotransfer ALT/SGPT 39 U/L (<=34); Albumin, Serum 3.6 g/dL (3.4-4.8); Alkaline Phosphatase 100 U/L (35-104); Anion Gap 12 (5-15); BUN 9 mg/dL (4-19); BUN/Creat Ratio 19.7 RATIO (10-20); Calcium,Total 8.5 mg/dL (7.6-11.0); Chloride 99 mmol/L (98-108); Creatinine, Serum 0.47 mg/dL (0.70-1.20); EST Glomerular Filtration Rate 96 (>60); Estimated Creatinine Clearance 65.64 ml/min (50-250); Globulin 3.4 g/dL (2.2-4.2); Glucose 94 mg/dL (70-99); Potassium 3.3 mmol/L (3.3-5.1); Protein, Total 6.9 g/dL (5.9-8.4); Sodium Level 134 mmol/L (133-145); Total Bilirubin 0.37 mg/dL (0.00-1.30)
[2024-11-22] MEDS: Ipratropium/Albuterol Sulfate 3 ML AMPUL.NEB INHALATION ×4 (07:17→21:03)
[2024-11-22] MEDS: Sertraline 100 MG Tablet 150 MG PO (08:19)
[2024-11-22] MEDS: Timolol 0.5% 5ML OPTH.BTL 1 DRP OPHTHALMIC (08:19)
[2024-11-22] MEDS: hydroCHLOROthiazide 25 MG Tablet PO (08:20)
[2024-11-22] MEDS: Metoprolol(XL)Succ 100 MG Tablet PO (08:20)
[2024-11-22] MEDS: Ascorbic Acid 500 MG Tablet 1000 MG PO ×2 (08:20→20:55)
[2024-11-22] MEDS: Methenamine Hippurate 1 GM Tablet PO ×2 (08:20→20:55)
[2024-11-22] MEDS: Azithromycin 500 MG in 0.9% Normal Saline (250mL Bag) 250 ML 255 MG IV (08:22)
[2024-11-22] MEDS: Ceftriaxone 2 GM in 0.9% Normal Saline (50mL MB+) 50 ML IV (08:22)
--- NOTE | 2024-11-22 10:38 | PCM.PN.HOSP ---
Reason for Visit Reason for Visit: Diagnoses Other pulmonary embolism without acute cor pulmonale (11/21/24) Pneumonia, unspecified organism (11/21/24) Hypoxemia (11/21/24) Subjective Subjective Saw patient at bedside this morning. Patient was anxious appearing but otherwise sitting up comfortably in bed and in no acute distress. She was breathing comfortably on 2 L nasal cannula at rest. Notes that her shortness of breath today is moderately improved from yesterday. She denies any shortness of breath at rest but does continue to have shortness of breath with exertion. No other acute concerns this morning. Objective Data Objective Data Vital Signs: Vital Signs Temp Pulse Resp BP Pulse Ox O2 Del Method O2 Flow Rate 97.7 F L 74 18 121/71 H 93 Nasal Cannula 2 11/22/24 08:12 11/22/24 08:20 11/22/24 08:12 11/22/24 08:12 11/22/24 08:12 11/22/24 08:13 11/22/24 08:13 Oxygen Flow Rate (L/min) 2 Oxygen Delivery Method Nasal Cannula Weight: 89.5 kg Body Mass Index (BMI) 29.9 Intake & Output: Intake and Output for Last 24 Hours 11/20/24 11/21/24 11/22/24 23:59 23:59 23:59 Intake Total 3132.5 / 3132.5 379.8 / 379.8 Output Total 400 / 400 Balance 3132.5 / 2732.5 -20.2 / -20.2 Lab / Micro Data 11/22/24 03:48 11/22/24 03:48 Labs: Laboratory Results - last 24 hr 11/21/24 15:59: WBC 11.6 H, RBC 4.83, Hgb 14.7, Hct 43.0, MCV 89.0, MCH 30.4, MCHC 34.2, RDW Std Deviation 42.0, RDW Coeff of Ayesha 12.9, Plt Count 339, MPV 9.4, Immature Gran % (Auto) 0.400, Neut % (Auto) 70.5 H, Lymph % (Auto) 18.4 L, [place] % (Auto) 6.9, Eos % (Auto) 3.2, Baso % (Auto) 0.6, Absolute Neuts (auto) 8.2 H, Absolute Lymphs (auto) 2.14, Nucleated RBC % 0, PT 14.2, INR 1.1, APTT 28.9, Sodium 131 L, Potassium 4.8, Chloride 95 L, Carbon Dioxide 21.9, Anion Gap 14, BUN 12, Creatinine 0.57 L, Estim Creat Clear Calc 56.58, Est GFR (MDRD) Non-Af 92, BUN/Creatinine Ratio 20.0, Glucose 150 H, Lactic Acid 2.3 H*, Calcium 8.8, Total Bilirubin 0.37, AST 63 H, ALT 37 H, Alkaline Phosphatase 117 H, Troponin T High Sens 62 H*, NT pro BNP II 1243, Total Protein 7.5, Albumin 3.7, Globulin 3.8, Albumin/Globulin Ratio 1.0 11/21/24 17:40: Urine Color Yellow, Urine Clarity Sl. Cloudy, Urine pH 6.5, Ur Specific [place] 1.010, Urine Protein 100 H, Urine Glucose (UA) Normal, Urine Ketones Negative, Urine Occult Blood 10 H, Urine Nitrite Negative, Urine Bilirubin Negative, Urine Urobilinogen Normal, Ur Leukocyte Esterase 25 H, Urine RBC 0-5 SEEN, Urine WBC 10-25 SEEN, Ur Squamous Epith Cells 0-5 SEEN, Urine Bacteria RARE, Urine Mucus 0 SEEN 11/21/24 18:13: Troponin T Hi Sens 2 Hr 198 H* 11/21/24 19:59: Magnesium 1.6, Troponin T Hi Sens 4Hr 221 H*, Procalcitonin 0.07 11/21/24 20:41: POC Glucose 108 H 11/21/24 22:29: Lactic Acid 1.3 11/22/24 03:48: WBC 12.9 H, RBC 4.28, Hgb 13.0, Hct 38.4, MCV 89.7, MCH 30.4, MCHC 33.9, RDW Std Deviation 42.8, RDW Coeff of Ayesha 13.0, Plt Count 294, MPV 9.4, Immature Gran % (Auto) 0.500, Neut % (Auto) 63.2, Lymph % (Auto) 25.7, [place] % (Auto) 9.0, Eos % (Auto) 1.1, Baso % (Auto) 0.5, Absolute Neuts (auto) 8.2 H, Absolute Lymphs (auto) 3.31, Nucleated RBC % 0, APTT 108.5 H*, Sodium 134, Potassium 3.3, Chloride 99, Carbon Dioxide 24.0, Anion Gap 12, BUN 9, Creatinine 0.47 L, Estim Creat Clear Calc 65.64, Est GFR (MDRD) Non-Af 96, BUN/Creatinine Ratio 19.7, Glucose 94, Calcium 8.5, Total Bilirubin 0.37, AST 45 H, ALT 39 H, Alkaline Phosphatase 100, Total Protein 6.9, Albumin 3.6, Globulin 3.4, Albumin/Globulin Ratio 1.1, Triglycerides 69, Cholesterol 190, LDL Cholesterol, Calc 128, VLDL Cholesterol 14, HDL Cholesterol 48, Cholesterol/HDL Ratio 3.97 Micro: Microbiology 11/21/24 23:00 Mucosa - Nasopharyngeal Respiratory Panel (PCR) - Final Rhinovirus 11/21/24 21:30 Nasal Secretion MRSA (PCR) - Final 11/21/24 16:00 Mucosa - Nose SARS-CoV-2, Influenza & RSV (PCR) - Final Radiography Diagnostic Testing: Radiology Impression Chest CTA 11/21/24 15:47 IMPRESSION: Findings are concerning for bilateral lower lobe basal segmental pulmonary embolism as above. Focal area of consolidation left lower lobe for example axial 89 overall appears larger than the segment with occlusion and may represent a combination of pneumonia and pulmonary infarct. Perihilar changes which may be inflammatory or infectious with possibility of pulmonary edema not excluded as above. Moderate appearing LAD coronary calcification noted. 7-8 mm subpleural noncalcified nodular density right lower lobe axial 89. Attention on follow-up. Red Alert: CTA CHEST W/WO CONTRAST The critical information above was relayed directly by me by telephone to Dewayne García on 11/21/2024 at 5:50 pm with readback verification. Reading Location: [facility] Physical Exam Const alert, oriented x3 and no apparent distress Constitutional Narrative: Elderly female, class I obesity, mildly anxious appearing but otherwise sitting up comfortably in bed, conversing normally, in no acute distress. General Appearance: cooperative and comfortable HEENT normocephalic, head/scalp atraumatic, hearing grossly normal bilaterally, nasal mucous membranes and turbinates normal and moist oral mucous membranes Eyes PERRL, EOMs intact bilaterally and conjunctivae normal Neck full ROM Chest inspection of chest normal Resp normal respiratory effort and no use of accessory muscles Resp Narrative: Breathing comfortably on 2 L nasal cannula at rest. Mildly diminished breath sounds bilaterally but no wheezing or crackles noted. Cardio regular rate, regular rhythm, no murmurs and peripheral pulses 2+ throughout GI normal to inspection, nondistended, normoactive bowel sounds, soft to palpation, non-tender and non-distended Back/Spine normal ROM Extremity normal to inspection, full ROM and no pedal edema Skin no rashes or lesions noted Psych mental status grossly normal Mood & Affect: anxious Assessment & Plan Assessment/Plan (1) Pulmonary embolism: (2) Rhinovirus infection: (3) Hypoxia: PLAN: Plan Patient is an 79-year-old female who presented to [facility] ED on 11/21/24 with worsening shortness of breath. 1. Acute hypoxia secondary to rhinovirus infection and acute low risk bilateral PE, history of COPD ? Not on home oxygen. Requiring 2 L nasal cannula on admit to maintain appropriate oxygen saturations. Positive for rhinovirus. CTA chest showed findings concerning for bilateral lower lobe basal segmental PE and perihilar changes likely inflammatory versus infectious in etiology. Echo on 11/21 showed EF 40%, moderate global LV systolic dysfunction, normal RV size and function, no elevated pulmonary pressures noted. Suspect provoked PE in setting of recent limited mobility. Initiated on heparin drip on admit, transitioned to Eliquis with loading dose on 11/22. Suspect primarily viral pneumonia with PE but cannot rule out secondary bacterial pneumonia, will treat with IV antibiotics. Continue scheduled DuoNebs for now. Wean supplemental oxygen as able. Continue home long-acting inhaler as well. 2. New onset HFrEF ? Echo showed newly reduced EF of 40% with moderate global LV systolic dysfunction as noted above. May be secondary to viral pneumonia or possibly due to longstanding hypertension. Euvolemic at this time, no need for diuresis. Will continue home medications as noted below. No need for inpatient cardiology consult but will need outpatient cardiology follow-up on discharge. 3. Nonobstructive CAD, hypertension, hyperlipidemia ? Continue home statin, hydrochlorothiazide, losartan and Toprol. 4. Depression/anxiety ? Continue home sertraline. 5. Chronic debility ? PT/OT/case management following. Has followed with home health care in the past. Fairly good therapy scores on hospital day 2, planning for home with home health care on discharge. 6. Class I obesity ? BMI 30 on admit. Complicates hospital course, care and prognosis. Recommend weight loss. DVT prophylaxis: Not indicated, on Eliquis CODE STATUS: Full code, verified Expected disposition: Home with home health care, 1 to 2 days Total clinical time spent by myself addressing the patient's medical issues, reviewing all the data, and collaborating with patient's care team: 35 minutes. Charges/Coding Visit Charges Inpatient E&M: 49054 Subs Hosp L2
--- NOTE | 2024-11-22 11:23 | CASEMGMT ---
SEGUNDO HERNÁNDEZ NOTE: Pt currently on 2 L/M O2 @ rest. Per Dr Perez, he anticipates pt will be ready to discharge home tomorrow. Per ED SW, pt stated she would like to get home O2 from [facility] if she needs it @ dc. SEGUNDO HERNÁNDEZ to room. Pt resting in bed, @ bedside. Discussed possible need of home O2 @ dc. Questions answered. Pt made aware [facility] does not do new home O2 set-ups on the weekend, but testing for home O2 can be done today and if she qualifies for it, [facility] can set it up today. Further questions answered. Pt states she prefers to be tested on day of discharge to see if she even needs the oxygen. Verbal list of local DME providers that do home o2 set-up on the weekends provided. Pt chose [facility]. Discussed home O2 testing and set-up process. Pt confirms she does have a pulse ox @ home. Pt to discharge home on anti-coag. Per Dr Perez, he is not certain if it will be Eliquis or Xarelto yet. Discussed anti-coag w/pt and . Made aware they will be provided w/a 30-day free trial offer card for medication, once final determination is made. They were notified it is a [id number]-lifetime use card and if refills are not affordable to discuss with PCP. They voice understanding. Paty BARRAGAN RN, CM
--- NOTE | 2024-11-22 12:45 | CASEMGMT ---
Addendum entered by Elena Villela 11/22/24 15:27: Pt states she does not want OT w/HHC. Lyndsay @ [facility] made aware and [facility] order and dc plan updated. Addendum entered by Elena Villela 11/22/24 15:24: Call received from Lyndsay @ [facility]. They are able to accept pt w/SOC slated for Monday. Pt made aware. This was added to pt's dc plan. Original Note: SEGUNDO HERNÁNDEZ NOTE: Therapy has worked w/pt today and additional therapy recommended @ dc. SEGUNDO HERNÁNDEZ to room. Pt sitting up in chair in room. Discussed therapy and recommendations. Pt would like to dc home w/[facility], as she has had them before and declines wanting list of other [facility] options. SEGUNDO HERNÁNDEZ discussed homebound criteria, pt voices understanding and states she is homebound @ her baseline. Order placed. Call placed to [facility] and VM left re: referral. Awaiting response. Paty BARRAGAN RN, CM
[2024-11-22 12:59] LABS: Partial Thromboplast Time 48.9 Seconds (24.1-36.2)
[2024-11-22] MEDS: Magnesium Sulfate 2 GM in Dextrose 5%-Water (100mL Bag) 100 ML IV (15:20)
[2024-11-22] MEDS: Potassium Chloride Oral Tablet 20 MEQ 40 MEQ PO (15:20)
[2024-11-22] MEDS: APIXABAN 5 MG TABLET 10 MG PO (17:35)
[2024-11-22] MEDS: guaiFENesin 10 ML UDC (200MG/10ML) 20 ML PO (20:53)
[2024-11-22] MEDS: Atorvastatin Calcium 10 MG Tablet 5 MG PO (20:55)
[2024-11-23] VITALS (14 sets, daily range): BP systolic 113–129; BP diastolic 64–96; PULSE 76–90; RESP 16–18; TEMP 36.6–36.7; O2SAT 90–95; BMI 30.2
[2024-11-23] MEDS: Albuterol 2.5 MG/3 ML VIAL.NEB. INHALATION (00:23)
[2024-11-23] MEDS: guaiFENesin 10 ML UDC (200MG/10ML) 20 ML PO (05:07)
[2024-11-23 07:28] LABS: Hemoglobin 12.2 g/dL (12.0-15.0); Mean Corp Hgb Conc 33.9 g/dL (32-36); Mean Corpuscular Hgb 30.4 pg (27.0-32.0); Mean Corpuscular Volume 89.8 fL (81-99); Mean Platelet Vol. 9.6 fl (6.2-12.0); Platelet Count 284 K/mm3 (150-450); RBC Distribution Width CV 13.2 % (11.6-14.6); RBC Distribution Width SD 43.5 fl (35.1-43.9); Red Blood Count 4.01 M/mm3 (4.2-5.4); White Blood Count 9.7 K/mm3 (4.4-11.0)
[2024-11-23] MEDS: Ipratropium/Albuterol Sulfate 3 ML AMPUL.NEB INHALATION ×4 (07:35→19:30)
[2024-11-23 08:08] LABS: Anion Gap 11 (5-15); BUN 8 mg/dL (4-19); BUN/Creat Ratio 16.6 RATIO (10-20); Calcium,Total 8.6 mg/dL (7.6-11.0); Carbon Dioxide 27.3 mmol/L (21.0-32.0); Chloride 96 mmol/L (98-108); Creatinine, Serum 0.46 mg/dL (0.70-1.20); EST Glomerular Filtration Rate 97 (>60); Estimated Creatinine Clearance 65.89 ml/min (50-250); Glucose 101 mg/dL (70-99); Potassium 3.3 mmol/L (3.3-5.1); Sodium Level 134 mmol/L (133-145)
[2024-11-23 08:46] LABS: Magnesium 1.8 mg/dL (1.5-2.2); Phosphorus 3.1 mg/dL (2.7-4.5)
--- NOTE | 2024-11-23 10:03 | CASEMGMT ---
Patient is discharging on SEGUNDO Swanson CM called [facility], copay is $331.81, 30 day free trial card applied. RN EDGAR updated patient regarding copay and savings card. Patient had no further questions or concerns.
[2024-11-23] MEDS: Ceftriaxone 2 GM in 0.9% Normal Saline (50mL MB+) 50 ML IV (10:13)
[2024-11-23] MEDS: Timolol 0.5% 5ML OPTH.BTL 1 DRP OPHTHALMIC (10:13)
[2024-11-23] MEDS: APIXABAN 5 MG TABLET 10 MG PO ×2 (10:15→22:09)
[2024-11-23] MEDS: Ascorbic Acid 500 MG Tablet 1000 MG PO ×2 (10:23→22:42)
[2024-11-23] MEDS: hydroCHLOROthiazide 25 MG Tablet PO (10:23)
[2024-11-23] MEDS: Sertraline 100 MG Tablet 150 MG PO (10:23)
[2024-11-23] MEDS: Metoprolol(XL)Succ 100 MG Tablet PO (10:24)
[2024-11-23] MEDS: Methenamine Hippurate 1 GM Tablet PO ×2 (10:25→22:42)
--- NOTE | 2024-11-23 11:28 | PN.HOSP_ITS ---
Reason for Visit Reason for Visit: Diagnoses Other viral infections of unspecified site (11/21/24) Other pulmonary embolism without acute cor pulmonale (11/21/24) Pneumonia, unspecified organism (11/21/24) Hypoxemia (11/21/24) Subjective Subjective Saw patient at bedside this morning. Patient was sitting back in bed fairly comfortably and in no acute distress. She was somewhat anxious appearing but this appears to be her baseline. She stated her breathing felt slightly better today than previous days. She denied any other new concerns today. Objective Data Objective Data Vital Signs: Vital Signs Temp Pulse Resp BP Pulse Ox O2 Del Method O2 Flow Rate 98.0 F 83 18 129/76 H 93 Nasal Cannula 2 11/23/24 02:53 11/23/24 11:05 11/23/24 11:05 11/23/24 10:24 11/23/24 07:35 11/23/24 07:35 11/23/24 07:35 Oxygen Flow Rate (L/min) 2 Oxygen Delivery Method Nasal Cannula Weight: 90.2 kg Body Mass Index (BMI) 30.2 Intake & Output: Intake and Output for Last 24 Hours 11/21/24 11/22/24 11/23/24 23:59 23:59 23:59 Intake Total 3132.5 / 3132.5 1364.92 / 1364.92 Output Total 400 / 400 Balance 3132.5 / 2732.5 964.92 / 964.92 Lab / Micro Data 11/23/24 06:10 11/23/24 06:10 Labs: Laboratory Results - last 24 hr 11/22/24 12:42: APTT 48.9 H 11/23/24 06:10: WBC 9.7, RBC 4.01 L, Hgb 12.2, Hct 36.0 L, MCV 89.8, MCH 30.4, MCHC 33.9, RDW Std Deviation 43.5, RDW Coeff of Ayesha 13.2, Plt Count 284, MPV 9.6, Sodium 134, Potassium 3.3, Chloride 96 L, Carbon Dioxide 27.3, Anion Gap 11, BUN 8, Creatinine 0.46 L, Estim Creat Clear Calc 65.89, Est GFR (MDRD) Non- Af 97, BUN/Creatinine Ratio 16.6, Glucose 101 H, Calcium 8.6, Phosphorus 3.1, Magnesium 1.8 Micro: Microbiology 11/22/24 02:23 Sputum, Expectorated/Coughed Gram Stain - Final 11/21/24 23:00 Mucosa - Nasopharyngeal Respiratory Panel (PCR) - Final Rhinovirus 11/21/24 21:30 Nasal Secretion MRSA (PCR) - Final 11/21/24 16:00 Mucosa - Nose SARS-CoV-2, Influenza & RSV (PCR) - Final Radiography Diagnostic Testing: Radiology Impression Echocardiogram 11/21/24 20:28 Interpretation Summary Normal LV size. Moderate global left ventricular systolic dysfunction. The left ventricular ejection fraction is 40 %. Unable to estimate RV systolic pressure due to inadequate jet, pulmonary artery pressure probably normal. Contrast injection was performed. Ordering Physician: Deandra Hood Referring Physician: Rito Zuleta Performed By: Eliza De Dios, CYNTHIACS, RVT Physical Exam Const alert, oriented x3 and no apparent distress Constitutional Narrative: Elderly female, class I obesity, mildly anxious appearing but otherwise sitting up comfortably in bed, conversing normally, in no acute distress. Stable. General Appearance: cooperative and comfortable HEENT normocephalic, head/scalp atraumatic, hearing grossly normal bilaterally, nasal mucous membranes and turbinates normal and moist oral mucous membranes Eyes PERRL, EOMs intact bilaterally and conjunctivae normal Neck full ROM Chest inspection of chest normal Resp normal respiratory effort and no use of accessory muscles Resp Narrative: Breathing comfortably on 2 L nasal cannula at rest. Mildly diminished breath sounds bilaterally but no wheezing or crackles noted. Stable. Cardio regular rate, regular rhythm, no murmurs and peripheral pulses 2+ throughout GI normal to inspection, nondistended, normoactive bowel sounds, soft to palpation, non-tender and non-distended Back/Spine normal ROM Extremity normal to inspection, full ROM and no pedal edema Skin no rashes or lesions noted Psych mental status grossly normal Mood & Affect: anxious Assessment & Plan Assessment/Plan (1) Pulmonary embolism: (2) Rhinovirus infection: (3) Hypoxia: PLAN: Plan Patient is an 79-year-old female who presented to [facility] ED on 11/21/24 with worsening shortness of breath. 1. Acute hypoxia secondary to rhinovirus infection and acute low risk bilateral PE, history of COPD ? Not on home oxygen. Requiring 2 L nasal cannula on admit to maintain appropriate oxygen saturations. Positive for rhinovirus. CTA chest showed findings concerning for bilateral lower lobe basal segmental PE and perihilar changes likely inflammatory versus infectious in etiology. Echo on 11/21 showed EF 40%, moderate global LV systolic dysfunction, normal RV size and function, no elevated pulmonary pressures noted. Suspect provoked PE in setting of recent limited mobility. Initiated on heparin drip on admit, transitioned to Eliquis with loading dose on 11/22. Suspect primarily viral pneumonia with PE but cannot rule out secondary bacterial pneumonia, will treat with IV antibiotics. Continue scheduled DuoNebs for now. Wean supplemental oxygen as able. Continue home long-acting inhaler as well. Hopeful for discharge home in the next 1 to 2 days. 2. New onset HFrEF ? Echo showed newly reduced EF of 40% with moderate global LV systolic dysfunction as noted above. May be secondary to viral pneumonia or possibly due to longstanding hypertension. Euvolemic at this time, no need for diuresis. Will continue home medications as noted below. No need for inpatient cardiology consult but will need outpatient cardiology follow-up on discharge. 3. Nonobstructive CAD, hypertension, hyperlipidemia ? Continue home statin, hydrochlorothiazide, losartan and Toprol. 4. Depression/anxiety ? Continue home sertraline. 5. Chronic debility ? PT/OT/case management following. Has followed with home health care in the past. Fairly good therapy scores thus far, planning for home with home health care on discharge. 6. Class I obesity ? BMI 30 on admit. Complicates hospital course, care and prognosis. Recommend weight loss. DVT prophylaxis: Not indicated, on Eliquis CODE STATUS: Full code, verified Expected disposition: Home with home health care, 1 to 2 days Total clinical time spent by myself addressing the patient's medical issues, reviewing all the data, and collaborating with patient's care team: 35 minutes. Charges/Coding Visit Charges Inpatient E&M: 20225 Subs Hosp L2
[2024-11-23] MEDS: Azithromycin 500 MG in 0.9% Normal Saline (250mL Bag) 250 ML 255 MG IV (12:26)
[2024-11-23] MEDS: 0.9% Saline Lock 10 ML Syringe IV ×2 (14:25→22:43)
[2024-11-23] MEDS: Atorvastatin Calcium 10 MG Tablet 5 MG PO (22:08)
[2024-11-24] VITALS (7 sets, daily range): BP systolic 110–134; BP diastolic 72–89; PULSE 81–87; RESP 12–22; TEMP 36.5–36.7; O2SAT 92–94
[2024-11-24] MEDS: Ipratropium/Albuterol Sulfate 3 ML AMPUL.NEB INHALATION ×2 (07:35→11:30)
[2024-11-24] MEDS: Metoprolol(XL)Succ 100 MG Tablet PO (09:37)
[2024-11-24] MEDS: Ceftriaxone 2 GM in 0.9% Normal Saline (50mL MB+) 50 ML IV (09:37)
[2024-11-24] MEDS: Sertraline 100 MG Tablet 150 MG PO (09:41)
[2024-11-24] MEDS: hydroCHLOROthiazide 25 MG Tablet PO (09:41)
[2024-11-24] MEDS: Methenamine Hippurate 1 GM Tablet PO (09:42)
[2024-11-24] MEDS: Ascorbic Acid 500 MG Tablet 1000 MG PO (09:42)
[2024-11-24] MEDS: APIXABAN 5 MG TABLET PO (09:43)
[2024-11-24] MEDS: Timolol 0.5% 5ML OPTH.BTL 1 DRP OPHTHALMIC (09:44)
--- NOTE | 2024-11-24 09:54 | DS.PCM_ITS ---
Providers Date of Admission: 11/21/24 Date of Discharge: 11/24/24 Primary Care Physician: Dr. Rito Zuleta MD Reason For Visit: HYPOXIA, ASTHMA EXAC, PNA, BL PE Diagnosis Discharge Diagnosis (1) Pulmonary embolism: Status: Acute Code(s): I26.99 - Other pulmonary embolism without acute cor pulmonale (2) Rhinovirus infection: Status: Acute Code(s): B34.8 - Other viral infections of unspecified site (3) Hypoxia: Status: Acute Code(s): R09.02 - Hypoxemia Medications at Discharge Home Medications albuterol sulfate 90 mcg/actuation aerosol inhaler 2 puff inhalation Q6H PRN wheezing SOB 05/04/24 atorvastatin 10 mg tablet 5 mg PO QHS HLD 05/04/24 hydrochlorothiazide 25 mg tablet 25 mg PO DAILY bp 05/04/24 methenamine hippurate 1 gram tablet 1 g PO BID . 05/04/24 metoprolol succinate 100 mg tablet,extended release 24 hr 100 mg PO DAILY blood pressure 05/04/24 sertraline 100 mg tablet 150 mg PO DAILY . 05/04/24 timolol maleate 0.5 % eye drops 1 drp ophthalmic (eye) DAILY . 05/04/24 tiotropium bromide 2.5 mcg/actuation mist for inhalation (Spiriva Respimat) 2 puff inhalation QHS COPD 05/04/24 losartan 50 mg tablet 50 mg PO DAILY 1 month #30 tabs 05/08/24 saliva substitute combo no.9 (Biotene Dry Mouth Oral Rinse mouthwash) 15 ml mucous membrane 5X/DAY PRN Dry Mouth #0 mL 05/08/24 albuterol sulfate 2.5 mg/3 mL (0.083 %) solution for nebulization 2.5 mg inhalation Q4H PRN shortness of breath or wheezing 11/21/24 ascorbic acid (vitamin C) 1,000 mg tablet (C-1000) 1 g PO BID 11/21/24 tobramycin 300 mg/5 mL in 0.225 % sodium chloride for nebulization 5 ml inhalation BID 11/21/24 apixaban 5 mg tablet (Eliquis) 5 mg PO BID 30 days #60 tabs 11/24/24 Hospital Course Operations None Procedures EKG, Transthoracic echo and - (CTA chest) Summary of Care Provided Minutes Spent on Discharge: 35 Hospital Course: Patient is an 79-year-old female who presented to [facility] ED on 11/21/24 with worsening shortness of breath. Hospital course as noted below. Patient discharged home with home health care in stable condition on 11/24. 1. Acute hypoxia secondary to rhinovirus infection and acute low risk bilateral PE, history of COPD ? Not on home oxygen. Requiring 2 L nasal cannula on admit to maintain appropriate oxygen saturations. Positive for rhinovirus. CTA chest showed findings concerning for bilateral lower lobe basal segmental PE and perihilar changes likely inflammatory versus infectious in etiology. Echo on 11/21 showed EF 40%, moderate global LV systolic dysfunction, normal RV size and function, no elevated pulmonary pressures noted. Initiated on heparin drip on admit, transitioned to Eliquis on 11/22. Given the CT scan did not clearly show a PE, will treat with Eliquis without loading dose and discharge on Eliquis 5 mg twice daily. Strongly suspect primarily viral pneumonia with PE, lower concern for bacterial pneumonia, no need for further antibiotics on discharge. Completed oxygen testing on day of discharge and did not require any supplemental oxygen. Continue home inhalers on discharge. 2. HFrEF ? Echo showed EF of 40% with moderate global LV systolic dysfunction as noted above. Unclear if this is acute versus chronic; we have no documented HFrEF in our system but patient was on medications as noted below that are appropriate for heart failure. Euvolemic, no need for diuresis. Continue home medications as noted below. No need for inpatient cardiology consult but will need outpatient cardiology follow-up on discharge. 3. Nonobstructive CAD, hypertension, hyperlipidemia ? Continue home statin, hydrochlorothiazide, losartan and Toprol. 4. Depression/anxiety ? Continue home sertraline. 5. Mild acute on chronic debility ? PT/OT/case management followed. Has followed with home health care in the past. Had fairly good therapy scores while inpatient, stable for discharge home with home health care on 11/24. 6. Class I obesity ? BMI 30 on admit. Complicated hospital course, care and prognosis. Recommend weight loss. Total clinical time spent by myself addressing the patient's medical issues, reviewing all the data, and collaborating with patient's care team: 35 minutes. Physical Exam Const alert, oriented x3 and no apparent distress Constitutional Narrative: Elderly female, class I obesity, mildly anxious appearing but otherwise sitting up comfortably in bed, conversing normally, in no acute distress. Stable. General Appearance: cooperative and comfortable HEENT normocephalic, head/scalp atraumatic, hearing grossly normal bilaterally, nasal mucous membranes and turbinates normal and moist oral mucous membranes Eyes PERRL, EOMs intact bilaterally and conjunctivae normal Neck full ROM Chest inspection of chest normal Resp normal respiratory effort and no use of accessory muscles Resp Narrative: Breathing comfortably on room air at rest. Very mild wheezing noted in upper airways but good breath sounds bilaterally with no crackles noted, much improved from admission. Cardio regular rate, regular rhythm, no murmurs and peripheral pulses 2+ throughout GI normal to inspection, nondistended, normoactive bowel sounds, soft to palpation, non-tender and non-distended Back/Spine normal ROM Extremity normal to inspection, full ROM and no pedal edema Skin no rashes or lesions noted Psych mental status grossly normal Weight / BMI Weight Weight: 89.7 kg Body Mass Index (BMI) 30.0 ABG / Lab / Microbiology Data 11/23/24 06:10 11/23/24 06:10 Microbiology: Microbiology 11/21/24 16:18 Blood Culture (Wb) - Venous Blood Culture - Preliminary No growth in 48 hours. 11/21/24 15:59 Blood Culture (Wb) - Left Wrist Blood Culture - Preliminary No growth in 48 hours. 11/22/24 02:23 Sputum, Expectorated/Coughed Gram Stain - Final 11/22/24 02:23 Sputum, Expectorated/Coughed Respiratory Culture - Preliminary Presumptive C albicans Beta streptococcus 11/21/24 17:40 Urine Catheter - Catheter Urine Culture - Final Mixed Gram Positive Organisms GPC Poss Enterococcus sp 11/21/24 23:00 Mucosa - Nasopharyngeal Respiratory Panel (PCR) - Final Rhinovirus 11/21/24 21:30 Nasal Secretion MRSA (PCR) - Final 11/21/24 16:00 Mucosa - Nose SARS-CoV-2, Influenza & RSV (PCR) - Final D/C Instructions DC O2, CPAP, BIPAP Needs Home O2 Discharge instructions: No Meaningful Use Info Meaningful Use Meaningful Use Diagnoses (Choose all that apply): VTE Ischemic Stroke Statin Dosing Therapy Reference: STATIN DOSE THERAPY REFERENCE: * Patients > 75 years receive moderate or high dose statin therapy. * Patients 75 years or YOUNGER should receive HIGH intensity statin dose unless contraindicated. You will be required to document reason for non-treatment if statin daily dose does not meet guidelines. HIGH DOSE STATIN THERAPY DAILY Atorvastatin > than or = to 40 mg Rosuvastatin > than or = to 20 mg Amlodipine + Atorvastatin > than or = to 2.5/40 mg Ezetimibe + Simvastatin 10/80 mg Simvastatin 80mg VTE Anticoag overlap given w/in hospital stay or rx'd at dc?: Yes Pt receive overlap for 5 days?: No Reason overlap not ordered, prescribed, or given for 5 days: Treatment Not Indicated Discharge Plan Admission Admit Date/Time: 11/21/24 19:17 Primary Reason for Your Visit: Shortness of breath Attending Provider: Federico Perez Primary Care Provider: Rito Zuleta Consulting Providers: Deandra Hood Instructions Additional Instructions / Restrictions: Please take Eliquis 1 tablet twice daily for the next 3 months. Follow-up with your outpatient doctor to determine if you will need to continue Eliquis after that time. Continue your other home medications as normal. Please call the cardiology office to establish care with them for your heart failure. Discharge Orders/Prescriptions Prescriptions: New Eliquis 5 mg Tablet 5 mg PO BID 30 Days Qty: 60 2RF Continued albuterol sulfate 90 mcg/actuation HFA aerosol inhaler 2 puff inhalation Q6H PRN (Reason: wheezing SOB) atorvastatin 10 mg tablet 5 mg PO QHS metoprolol succinate 100 mg tablet extended release 24 hr 100 mg PO DAILY hydrochlorothiazide 25 mg tablet 25 mg PO DAILY methenamine hippurate 1 gram tablet 1 g PO BID sertraline 100 mg tablet 150 mg PO DAILY Spiriva Respimat 2.5 mcg/actuation mist 2 puff inhalation QHS timolol maleate 0.5 % drops 1 drp ophthalmic (eye) DAILY Biotene Dry Mouth Oral Rinse Mouthwash 15 ml mucous membrane 5X/DAY PRN (Reason: Dry Mouth) Qty: 0 0RF losartan 50 mg tablet 50 mg PO DAILY 30 Days Qty: 30 1RF Rx Instructions: Hold for SBP less than 130 mmHg tobramycin in 0.225 % NaCl 300 mg/5 mL solution for nebulization 5 ml INHALATION BID albuterol sulfate 2.5 mg /3 mL (0.083 %) solution for nebulization 2.5 mg inhalation Q4H PRN (Reason: shortness of breath or wheezing) ascorbic acid (vitamin C) [C-1000] 1,000 mg tablet 1 g PO BID Referrals / Follow Up: Yonis Hernandez MD [Med Staff - Active Staff] - Rito Zuleta MD [Primary Care Provider] - Disposition Disposition (needs filled in before D/C Order can be placed): Home Health Service Charges/Coding Visit Charges Inpatient E&M: 68075 Disch Hosp >30min
[2024-11-24] MEDS: Azithromycin 500 MG in 0.9% Normal Saline (250mL Bag) 250 ML 255 MG IV (11:30)
== END 2024-11-24 15:12 | disposition home health service (06) | DRG 193 ==
LOC: ED 18:45 → PCU 19:33
PROVIDERS: Admitting Provider Family Medicine; Emergency Provider Emergency Medicine; PCP Family Medicine; Visit Provider Hospitalist
DX: J12.9 Viral pneumonia, unspecified (principal); I26.99 Other pulmonary embolism without acute cor pulmonale; I24.89 Other forms of acute ischemic heart disease; J44.0 Chronic obstructive pulmonary disease with (acute) lower respiratory infection; I50.20 Unspecified systolic (congestive) heart failure; I11.0 Hypertensive heart disease with heart failure; Z68.30 Body mass index [BMI] 30.0-30.9, adult; I25.10 Atherosclerotic heart disease of native coronary artery without angina pectoris; E78.5 Hyperlipidemia, unspecified; M79.7 Fibromyalgia; F41.8 Other specified anxiety disorders; R53.81 Other malaise; B97.89 Other viral agents as the cause of diseases classified elsewhere; R09.02 Hypoxemia; E66.811 Obesity, class 1; Z79.899 Other long term (current) drug therapy; R79.89 Other specified abnormal findings of blood chemistry
CPT/HCPCS: 36415; 71275; 80048; 80053; 80061; 81001; 82962; 83605; 83735; 83880; 84100; 84145; 84484; 85025; 85027; 85610; 85730; 87040; 87070; 87077; 87086; 87088; 87186; 87205; 87449; 87631; 87633; 87641; 93005; 93306; 94640; 94668; 97162; 97166; 99285; Q9957; Q9967; A4216; C8929; J0696

== ENCOUNTER 2024-11-26 01:07 | Inpatient (IN) | payer MEDICARE, SELFPAY ==
[2024-11-26] VITALS (22 sets, daily range): BP systolic 110–145; BP diastolic 74–111; PULSE 75–96; RESP 12–34; TEMP 35.6–36.7; O2SAT 93–98; BMI 29.0; BMI 27.6
--- NOTE | 2024-11-26 01:22 | RAD_ITS ---
PROCEDURE: CHEST 1 VIEW (PORTABLE) 11/26/2024 REASON FOR EXAM: Dyspnea TECHNIQUE: Frontal view of the chest. COMPARISON: None available FINDINGS: Hardware: None available Heart: Cardiomediastinal silhouette is within normal limits. Normal pulmonary vascularity. Lungs: Streaky opacities within the bilateral lung bases, likely atelectasis or pneumonitis. Bones: No aggressive osseous lesions. No acute fractures. Other: None RAD/Chest 1 View (Portable) IMPRESSION: Streaky opacities within the bilateral lung bases, likely atelectasis or pneumo nitis. Reading Location: [id number]
--- NOTE | 2024-11-26 01:49 | CT_ITS ---
PROCEDURE: CTA CHEST W/WO CONTRAST 11/26/2024 REASON FOR EXAM: DYSPNEA WITH PMHX PE TECHNIQUE: CTA axial imaging of the chest with intravenous contrast. Coronal and Sagittal reconstruction series were provided. 3D, 3D post processing, 3D reconstructions, Maximum intensity projection (MIPs) Volume rendering and Shaded surface rendering was provided. PATIENT PREPARATION: Per protocol CONTRAST: Isovue 370 VOLUME: 100 ML 18 gauge IV One or more dose reduction techniques were used (e.g., Automated exposure control, adjustment of the mA and/or kV according to patient size, use of iterative reconstruction technique). CONTRAST: Isovue 370 VOLUME: 100 ML 18 gauge IV RADIATION DOSE SUMMARY: CTDlvol: 481.5 mGy DLP: 486.2 mGycm COMPARISON: CT PE protocol dated November 22, 2023 FINDINGS: Hardware: None Lymph nodes: No lymphadenopathy Heart: The heart is normal in size. The great vessels are normal in size and caliber. No pericardial effusion. RV/LV Diameter Ratio: Unremarkable Thoracic Aorta: Unremarkable Pulmonary Vessels: No filling defects up to the level of the segmental arterial branches to suggest PE. Most Proximal Level of Embolus (if embolus present): Lungs and Airways: Central airways are patent. Consolidative opacity within the left lower lobe and patchy opacities within the right upper lobe, with interstitial thickening within the bilateral upper lobes, and right lower lobe raising concern for multifocal infection on superimposed atelectasis or scarring. Pleura: No pleural effusion or pneumothorax. Upper Abdomen: Partially visualized upper abdomen demonstrates no acute abnormality. Bones: No aggressive osseous lesions. No acute fractures. [id number] thoracic kyphosis. CT/CTA Chest W/WO Contrast IMPRESSION: *No evidence of pulmonary emboli up to the segmental arterial branches. More p eripheral vessels are not well characterized. *Consolidative opacity within the left lower lobe and patchy opacities within t he right upper lobe with interstitial thickening within the bilateral upper lobes, and right lower lobe raising concern for mult ifocal infection and superimposed atelectasis or scarring. Reading Location: [facility]
[2024-11-26] MEDS: Ipratropium/Albuterol Sulfate 3 ML AMPUL.NEB INHALATION (01:50)
[2024-11-26 02:52] LABS: Anion Gap 15 (5-15); BUN 14 mg/dL (4-19); BUN/Creat Ratio 19.9 RATIO (10-20); Calcium,Total 9.4 mg/dL (7.6-11.0); Carbon Dioxide 24.4 mmol/L (21.0-32.0); Chloride 93 mmol/L (98-108); Creatinine, Serum 0.71 mg/dL (0.70-1.20); EST Glomerular Filtration Rate 86 (>60); Glucose 242 mg/dL (70-99); Magnesium 1.9 mg/dL (1.5-2.2); Potassium 4.4 mmol/L (3.3-5.1); Pro- Brain NATRIURETIC PEPTIDE 3658 pg/mL (<=1800); Sodium Level 132 mmol/L (133-145)
[2024-11-26 02:59] LABS: Absolute Lymphocyte Count 4.76 X10^3/uL (0.83-4.51); Absolute Neutrophil Count 8.9 X10^3/uL (2.0-7.7); Basophil# 0.11 X10^3/uL; Basophil% 0.7 % (0-1); Eosinophils% 1.9 % (0-5); Hematocrit 43.7 % (37-47); Hemoglobin 14.9 g/dL (12.0-15.0); Lymphocyte # 4.76 X10^3/ul (0.83-4.51); Lymphocyte % 30.8 % (19-41); Mean Corp Hgb Conc 34.1 g/dL (32-36); Mean Corpuscular Hgb 31.2 pg (27.0-32.0); Mean Corpuscular Volume 91.6 fL (81-99); Mean Platelet Vol. 9.2 fl (6.2-12.0); Monocyte# 1.28 X10^3/uL; Monocyte% 8.3 % (0-10); NRBC Flagged by Analyzer 0 % (0-5); Neutrophil # 8.86 X10^3/uL (2.7-7.7); Neutrophil % 57.3 % (47-70); Platelet Count 416 K/mm3 (150-450); RBC Distribution Width CV 13.2 % (11.6-14.6); RBC Distribution Width SD 45.1 fl (35.1-43.9); Red Blood Count 4.77 M/mm3 (4.2-5.4); White Blood Count 15.5 K/mm3 (4.4-11.0)
[2024-11-26] MEDS: Furosemide 40 MG/4 ML Vial IV ×2 (03:07→09:31)
--- NOTE | 2024-11-26 03:30 | EKG12_ITS ---
Test Reason : SOB Blood Pressure : */* mmHG Vent. Rate : 82 BPM Atrial Rate : 82 BPM P-R Int : 190 ms QRS Dur : 76 ms QT Int : 440 ms P-R-T Axes : 65 45 217 degrees QTcB Int : 514 ms Normal sinus rhythm Left ventricular hypertrophy with repolarization abnormality ( Sokolow-Eng ) Prolonged QT Abnormal ECG Confirmed by WINDY DICKEY, YUKI ([id number]), web editor AZAEL FLORES ([id number]) on 11/28/2024 8:27:51 AM Referred By: LYRIC Confirmed By: YUKI TEMPLE MD
[2024-11-26] MEDS: Piperacil/Tazobactam 3.375 GM in 0.9% Normal Saline (50mL MB+) 50 ML IV ×3 (04:06→21:55)
[2024-11-26] MEDS: Vancomycin HCl 1,250 MG in 0.9% Normal Saline (250mL Bag) 250 ML 167 MG IV (05:22)
--- NOTE | 2024-11-26 05:24 | HP.PCM.HOS_ITS ---
[facility] - [facility] General Date of Admission: 11/26/24 Date of Service: 11/26/24 Chief Complaint: SOB. HPI Narrative THEODORE CHRISTY, is a 79 F with a past medical history of essential hypertension; on metoprolol, losartan and hydrochlorothiazide, hyperlipidemia; on atorvastatin, overweight; with BMI of 29 this admission, history of nonobstructive CAD, history of asthma/COPD; on inhaled tobramycin twice daily plus Spiriva and as needed albuterol with severe allergies listed to several steroid agents, history of pneumonia, remote history of non-Hodgkin lymphoma; untreated, history of recurrent UTI; on methenamine hippurate twice daily, depression with anxiety; on sertraline, fibromyalgia, glaucoma; on timolol drops twice daily, recently diagnosed bilateral lower lobe segmental pulmonary emboli complicated by acute hypoxia secondarily attributed to rhinovirus and chronic systolic CHF; with LVEF ~40% (11/21/2024) during admission here from November 22, 2024 to November 24, 2024 on apixaban who re-presents to [facility] ER complaining of shortness of breath. Ms. Christy reports her symptoms began approximately 1 day prior to admission with a gradual-onset of progressively worsening dyspnea on exertion that progressed to shortness of breath at rest with audible wheezing. There was no report of fever, chills, nausea, vomiting, diarrhea, constipation, abdominal pain, chest pain, headache or rash and she states she has been taking her medications as prescribed. In the ER she was noted to have Leukocytosis of 15.5 K with Left-shift of 1% and corresponding CTA of chest which revealed c onsolidative opacity within the ll and patchy opacities within the RUL with interstitial thickening within the bilateral upper lobes and right lower lobe raising concern for Multifocal Pneumonia complicated by highly elevated NT pro- BNP II of 3,658 pg/mL present on admission consistent with AE of chronic systolic CHF; with LVEF ~40% compounded by clinical evidence of AE asthma/COPD with Acute Hypoxic Respiratory Failure; requiring BiPAP all causing Metabolic Encephalopathy in the setting of recently diagnosed bilateral lower lobe segmental Pulmonary Emboli and she was then admitted to the PCU for ongoing care for a stay that is expected to extend beyond 2 midnights. [facility] Medical History Non-Hodgkin lymphoma in adult Fibromyalgia Anxiety and depression Asthma HLD (hyperlipidemia) HTN (hypertension) Pneumonia Home Medications ?Medication ?Instructions ?Recorded ?Last Taken ?Type albuterol sulfate 90 mcg/actuation 2 puff inhalation Q 4H PRN wheezing 05/04/24 Unknown History aerosol inhaler SOB atorvastatin 10 mg tablet 5 mg PO QHS HLD 05/04/2410/15 History hydrochlorothiazide 25 mg tablet 25 mg PO DAILY bp 11/21/24 History methenamine hippurate 1 gram tablet 1 g PO BID . 05/0411/21/24 History metoprolol succinate 100 mg 100 mg PO DAILY blood pres sure 05/04/24 11/20/24 History tablet,extended release 24 hr sertraline 100 mg tablet 150 mg PO DAILY . 05/04/24 0 11/20/24 History timolol maleate 0.5 % eye drops 1 drp ophthalmic (eye) Q12H . 05/04/24 11/21/24 History tiotropium bromide 2.5 2 puff inhalation QHS COPD 0 05/04/24 11/20/24 History mcg/actuation mist for inhalation (Spiriva Respimat) losartan 50 mg tablet 50 mg PO DAILY 1 month #30 t abs 05/08/24 11/20/24 Rx saliva substitute combo no.9 15 ml mucous membrane 5X/ DAY PRN 05/08/24 11/20/24 Rx (Biotene Dry Mouth Oral Rinse Dry Mouth #0 mL mouthwash) albuterol sulfate 2.5 mg/3 mL 2.5 mg inhalation Q4H DC N 11/21/24 11/21/24 History (0.083 %) solution for nebulization shortness of breat h or wheezing ascorbic acid (vitamin C) 1,000 mg 1 g PO BID 11/21/24 11/21/24 History tablet (C-1000) tobramycin 300 mg/5 mL in 0.225 % 5 ml inhalation BID 11/21/24 11/21/24 History sodium chloride for nebulization apixaban 5 mg tablet (Eliquis) 5 mg PO BID 30 days #60 tabs 11/24/24 Unknown Rx Allergy/AdvReac Type Severity Reaction Status Date / Time fluticasone (From Advair Allergy Severe Anaphylaxis Verified 11/21/24 17:22 Diskus) lisinopril Allergy Severe Angioedema Verified 11/21/24 17:22 salmeterol (From Advair Allergy Severe Anaphylaxis Verified 11/21/24 17:22 Diskus) alendronate sodium (From Allergy Unknown PT UNSURE Verified 11/21/24 17:22 Fosamax) OF REACTION brimonidine Allergy Unknown NEEDS Verified 11/21/24 17:22 FOLLOW-UP celecoxib (From Celebrex) Allergy Unknown NEEDS Verified 11/21/24 17:22 FOLLOW-UP cephalexin (From Keflex) Allergy Unknown NEEDS Verified 11/21/24 17:22 FOLLOW-UP grepafloxacin (From Raxar) Allergy Unknown NEEDS Verified 11/21/24 17:22 FOLLOW-UP Influenza Virus Vaccines Allergy Unknown NEEDS Verified 11/21/24 17:22 (flu vaccine) FOLLOW-UP mannitol (From Reclast) Allergy Unknown NEEDS Verified 11/21/24 17:22 FOLLOW-UP methylprednisolone Allergy Unknown PT UNSURE Verified 11/21/24 16:16 OF REACTION nitrofurantoin (From Allergy Unknown NEEDS Verified 11/21/24 17:22 Macrodantin) FOLLOW-UP prednisone Allergy Unknown PT UNSURE Verified 11/21/24 17:22 OF REACTION propoxyphene (From Darvon) Allergy Unknown PT UNSURE Verified 11/21/24 17:22 OF REACTION Quinolones Allergy Unknown PT UNSURE Verified 11/21/24 17:22 OF REACTION sulfamethoxazole (From Allergy Unknown PT UNSURE Verified 11/21/24 17:22 Bactrim) OF REACTION trimethoprim (From Bactrim) Allergy Unknown PT UNSURE Verified 11/21/24 17:22 OF REACTION water for injection,sterile Allergy Unknown NEEDS Verified 11/21/24 17:22 (From Reclast) FOLLOW-UP zoledronic acid (From Allergy Unknown NEEDS Verified 11/21/24 17:22 Reclast) FOLLOW-UP Sulfa (Sulfonamide Allergy Swelling Verified 11/21/24 16:16 Antibiotics) (sulfa drugs) Family History Mother CAD (coronary artery disease) Heart disease Hypertension Father CAD (coronary artery disease) Heart disease Hypertension Surgical History History of breast biopsy History of tonsillectomy and adenoidectomy H/O section Social History household members: spouse Smoking Status: Never smoker alcohol intake: never substance use type: does not use ROS ROS Narrative Full review of systems was not possible due to patient's labored respirations on BiPAP and confusion. Vital Signs Vital Signs Vital Signs: 11/26/24 01:08 11/26/24 01:08 11/26/24 01:17 Temperature 96.5 F L 96.5 F L Temperature Source Axillary Oral Pulse Rate 96 90 Respiratory Rate 34 H 26 H Respiratory Effort Short of Breath Labored Respiratory Depth Normal Respiratory Pattern Normal Blood Pressure 130/111 H 130/111 H Blood Pressure Mean 117 117 Pulse Ox 97 96 Oxygen Delivery Method Nasal Cannula Room Air Nasal Cannula Oxygen Flow Rate (L/min) 6 Fraction of Inspired Oxygen (FIO2) 11/26/24 01:25 11/26/24 01:50 11/26/24 02:08 Temperature Temperature Source Pulse Rate 90 82 83 Respiratory Rate 26 H 26 H 21 H Respiratory Effort Respiratory Depth Respiratory Pattern Tachypnea Tachypnea Blood Pressure 110/75 Blood Pressure Mean 86 Pulse Ox 98 97 Oxygen Delivery Method Oxygen Flow Rate (L/min) Fraction of Inspired Oxygen (FIO2) 35 11/26/24 02:10 11/26/24 02:17 11/26/24 03:08 Temperature 96.1 F L Temperature Source Axillary Pulse Rate 84 82 82 Respiratory Rate 22 H 18 22 H Respiratory Effort Respiratory Depth Respiratory Pattern Tachypnea Blood Pressure 110/75 135/74 H Blood Pressure Mean 86 94 Pulse Ox 97 97 98 Oxygen Delivery Method Bi-pap Bi-pap Oxygen Flow Rate (L/min) Fraction of Inspired Oxygen (FIO2) 30 11/26/24 03:17 11/26/24 03:17 11/26/24 03:50 Temperature 96.9 F L 96.9 F L Temperature Source Axillary Pulse Rate 82 83 81 Respiratory Rate 22 H 21 H 19 H Respiratory Effort Respiratory Depth Respiratory Pattern Normal Blood Pressure 135/74 H 135/74 H Blood Pressure Mean 94 94 Pulse Ox 98 98 93 Oxygen Delivery Method Bi-pap Oxygen Flow Rate (L/min) Fraction of Inspired Oxygen (FIO2) 11/26/24 04:00 11/26/24 04:00 11/26/24 05:00 Temperature 97 F L Temperature Source Axillary Pulse Rate 80 80 82 Respiratory Rate 17 19 H 18 Respiratory Effort Respiratory Depth Respiratory Pattern Blood Pressure 141/81 H 141/81 H 131/80 H Blood Pressure Mean 101 101 97 Pulse Ox 96 96 95 Oxygen Delivery Method Bi-pap Bi-pap Bi-pap Oxygen Flow Rate (L/min) Fraction of Inspired Oxygen (FIO2) Weight Weight: 191 lb 5.78 oz Body Mass Index (BMI) 29.0 Physical Exam Const alert and average body habitus Constitutional Narrative: Moderately labored respirations noted on BiPAP with mild confusion. General Appearance: cooperative HEENT normocephalic, head/scalp atraumatic, hearing grossly normal bilaterally and moist oral mucous membranes Eyes PERRL and EOMs intact bilaterally Neck no lymphadenopathy and supple Resp Resp Narrative: Diminished breath sounds throughout with scattered rhonchi and wheezing. Auscultation: rhonchi and wheezes Cardio regular rate and regular rhythm GI normal to inspection, nondistended, normoactive bowel sounds, soft to palpation, non-tender and non-distended Extremity full ROM Skin Skin Narrative: Patient has evidence of rash, abscess, wounds or jaundice. Neuro CN's II-XII intact bilaterally, moves all extremities and no focal motor deficits Sensorium / Orientation: awake, alert, oriented to person and oriented to place Speech: speech normal Psych Mood & Affect: anxious Results Medical Records Data Attestation: I reviewed the patient's medical records Lab / Micro Data Attestation: I reviewed the patient's lab results. 11/26/24 01:18 11/26/24 01:18 Labs: Laboratory Results - last 24 hr 11/26/24 01:18: WBC 15.5 H, RBC 4.77, Hgb 14.9, Hct 43.7, MCV 91.6, MCH 31.2, MCHC 34.1, RDW Std Deviation 45.1 H, RDW Coeff of Ayesha 13.2, Plt Count 416, MPV 9.2, Immature Gran % (Auto) 1.000 H, Neut % (Auto) 57.3, Lymph % (Auto) 30.8, [place] % (Auto) 8.3, Eos % (Auto) 1.9, Baso % (Auto) 0.7, Absolute Neuts (auto) 8.9 H, Absolute Lymphs (auto) 4.76 H, Nucleated RBC % 0, Sodium 132 L, Potassium 4.4, Chloride 93 L, Carbon Dioxide 24.4, Anion Gap 15, BUN 14, Creatinine 0.71, Est GFR (MDRD) Non-Af 86, BUN/Creatinine Ratio 19.9, Glucose 242 H, Calcium 9.4, Magnesium 1.9, NT pro BNP II 3658 H Micro: Microbiology 11/26/24 01:18 Mucosa - Nose SARS-CoV-2, Influenza & RSV (PCR) - Final Imaging Radiology Impression Chest X-Ray 11/26/24 01:22 IMPRESSION: Streaky opacities within the bilateral lung bases, likely atelectasis or pneumonitis. Reading Location: [facility] Chest CTA 11/26/24 01:49 IMPRESSION: *No evidence of pulmonary emboli up to the segmental arterial branches. More peripheral vessels are not well characterized. *Consolidative opacity within the left lower lobe and patchy opacities within the right upper lobe with interstitial thickening within the bilateral upper lobes, and right lower lobe raising concern for multifocal infection and superimposed atelectasis or scarring. Reading Location: [facility] Assessment & Plan Assessment/Plan (1) Multifocal pneumonia: (2) Acute exacerbation of chronic heart failure: (3) Acute exacerbation of COPD with asthma: (4) Acute hypoxic respiratory failure: (5) Metabolic encephalopathy: (6) History of pulmonary embolism: (7) Overweight (BMI 25.0-29.9): PLAN: Plan 1. Leukocytosis of 15.5 K with Left-shift of 1% and corresponding CTA of chest which revealed consolidative opacity within the ll and patchy opacities within the RUL with interstitial thickening within the bilateral upper lobes and right lower lobe raising concern for Multifocal Pneumonia - Admit to PCU. Continue empiric IV piperacillin-tazobactam and IV vancomycin and await culture and sensitivity data. Check urinary antigens to Streptococcus pneumonia and Legionella. Give acidophilus probiotic and continue vitamin C plus add vitamin D3 and zinc to help boost immunity and hopefully speedy recovery. Give scheduled Mucinex 600 mg p.o. twice daily. Give acetaminophen as needed for [id number] (level 1-5/10) pain or fever. Give morphine IV as needed for severe (level 6-10/10) pain. 2. AE of chronic systolic CHF; with LVEF ~40% with highly elevated NT pro-BNP II of 3,658 pg/mL present on admission complicating #1 - Continue IV furosemide and check NT pro-BNP II daily to follow trend. Serialize troponin. 3. AE asthma/COPD compounding #1 & #2 - Resume antibiotics outlined in #1 plus give scheduled and as needed nebulizers. Steroids were avoided with patient having several allergies listed to numerous agents in this class. 4. Acute Hypoxic Respiratory Failure; requiring BiPAP due to #1 - #3 - Wean BiPAP and supplemental oxygen as tolerated. 5. Acute Metabolic Encephalopathy attributable to #1 - #4 - Check TSH, B12, Folate, CRISPIN and UDS to evaluate for potentially reversible causes of confusion. Otherwise, continue supportive care as outlined above and monitor for improvement. 6. Recently diagnosed bilateral lower lobe segmental pulmonary emboli complicated by acute hypoxia secondarily attributed to rhinovirus and chronic systolic CHF; with LVEF ~40% (11/21/2024) during admission here from November 22, 2024 to November 24, 2024 on apixaban adding to the medical complexity of #1 - #5 - Resume apixaban as previous with no evidence of PE on CTA of chest this admission. 7. Overweight; with BMI of 29 this admission adding to the burden of disease outlined from #1 - #6 - Weight loss will be recommended. Check TSH. 8. Essential hypertension; on metoprolol, losartan and hydrochlorothiazide - Maintain metoprolol and losartan as before and replace hydrochlorothiazide with IV furosemide as outlined #2. 9. Hyperlipidemia; on atorvastatin - Continue statin and check lipid profile. 10. History of nonobstructive CAD - Noted. 11. History of pneumonia - Noted. 12. Remote history of non-Hodgkin lymphoma; untreated - Noted. 13. History of recurrent UTI; on methenamine hippurate twice daily - Hold this agent while on broad-spectrum antibiotics outlined in #1. 14. Depression with anxiety; on sertraline - Resume sertraline as previous. 15. Fibromyalgia - Stable. 16. Glaucoma; on timolol drops twice daily - Continue current regimen. 17. DVT/GI prophylaxis - Patient already on apixaban for #4 which will be continued. Pantoprazole 40 mg IV daily. Total time: Approximately (but not less than) 75 minutes. Charges/Coding Visit Charges Inpatient E&M: 59112 Init Hosp L3
--- NOTE | 2024-11-26 05:29 | EX.ED.DYSGE1 ---
HPI History of Present Illness Chief Complaint: Shortness of Breath Informant: patient and EMS Narrative Narrative: Patient is an 79-year-old female with past medical history of hypertension hyperlipidemia CHF fibromyalgia and anxiety and depression. She was recently in the hospital secondary to CTA showing pulmonary emboli. She was started on anticoagulation and discharged home. She states that essentially in the last 24 hours she has been having increasing shortness of breath. She states she has an inhaler at home has been using this but there is been no improvement. Secondary to the worsening symptoms EMS was called. Patient was found by EMS in respiratory distress with a pulse ox of 70% on room air. Patient states she does not have any need for supplemental oxygen at baseline. [facility] Medical History Non-Hodgkin lymphoma in adult Fibromyalgia Anxiety and depression Asthma HLD (hyperlipidemia) HTN (hypertension) Pneumonia Home Medications ?Medication ?Instructions ?Recorded ?Last Taken ?Type albuterol sulfate 90 mcg/actuation 2 puff inhalation Q4H PRN wheezing 05/04/24 Unknown History aerosol inhaler SOB atorvastatin 10 mg tablet 5 mg PO QHS HLD 05/04/24 11/20/24 History hydrochlorothiazide 25 mg tablet 25 mg PO DAILY bp 05/04/24 11/21/24 History methenamine hippurate 1 gram tablet 1 g PO BID . 05/04/24 11/21/24 History metoprolol succinate 100 mg 100 mg PO DAILY blood pressure 05/04/24 11/20/24 History tablet,extended release 24 hr sertraline 100 mg tablet 150 mg PO DAILY . 05/04/24 11/20/24 History timolol maleate 0.5 % eye drops 1 drp ophthalmic (eye) Q12H . 05/04/24 11/21/24 History tiotropium bromide 2.5 2 puff inhalation QHS COPD 05/04/24 11/20/24 History mcg/actuation mist for inhalation (Spiriva Respimat) losartan 50 mg tablet 50 mg PO DAILY 1 month #30 tabs 05/08/24 11/20/24 Rx saliva substitute combo no.9 15 ml mucous membrane 5X/DAY PRN 05/08/24 11/20/24 Rx (Biotene Dry Mouth Oral Rinse Dry Mouth #0 mL mouthwash) albuterol sulfate 2.5 mg/3 mL 2.5 mg inhalation Q4H PRN 11/21/24 11/21/24 History (0.083 %) solution for nebulization shortness of breath or wheezing ascorbic acid (vitamin C) 1,000 mg 1 g PO BID 11/21/24 11/21/24 History tablet (C-1000) tobramycin 300 mg/5 mL in 0.225 % 5 ml inhalation BID 11/21/24 11/21/24 History sodium chloride for nebulization apixaban 5 mg tablet (Eliquis) 5 mg PO BID 30 days #60 tabs 11/24/24 Unknown Rx Allergy/AdvReac Type Severity Reaction Status Date / Time fluticasone (From Advair Allergy Severe Anaphylaxis Verified 11/21/24 17:22 Diskus) lisinopril Allergy Severe Angioedema Verified 11/21/24 17:22 salmeterol (From Advair Allergy Severe Anaphylaxis Verified 11/21/24 17:22 Diskus) alendronate sodium (From Allergy Unknown PT UNSURE Verified 11/21/24 17:22 Fosamax) OF REACTION brimonidine Allergy Unknown NEEDS Verified 11/21/24 17:22 FOLLOW-UP celecoxib (From Celebrex) Allergy Unknown NEEDS Verified 11/21/24 17:22 FOLLOW-UP cephalexin (From Keflex) Allergy Unknown NEEDS Verified 11/21/24 17:22 FOLLOW-UP grepafloxacin (From Raxar) Allergy Unknown NEEDS Verified 11/21/24 17:22 FOLLOW-UP Influenza Virus Vaccines Allergy Unknown NEEDS Verified 11/21/24 17:22 (flu vaccine) FOLLOW-UP mannitol (From Reclast) Allergy Unknown NEEDS Verified 11/21/24 17:22 FOLLOW-UP methylprednisolone Allergy Unknown PT UNSURE Verified 11/21/24 16:16 OF REACTION nitrofurantoin (From Allergy Unknown NEEDS Verified 11/21/24 17:22 Macrodantin) FOLLOW-UP prednisone Allergy Unknown PT UNSURE Verified 11/21/24 17:22 OF REACTION propoxyphene (From Darvon) Allergy Unknown PT UNSURE Verified 11/21/24 17:22 OF REACTION Quinolones Allergy Unknown PT UNSURE Verified 11/21/24 17:22 OF REACTION sulfamethoxazole (From Allergy Unknown PT UNSURE Verified 11/21/24 17:22 Bactrim) OF REACTION trimethoprim (From Bactrim) Allergy Unknown PT UNSURE Verified 11/21/24 17:22 OF REACTION water for injection,sterile Allergy Unknown NEEDS Verified 11/21/24 17:22 (From Reclast) FOLLOW-UP zoledronic acid (From Allergy Unknown NEEDS Verified 11/21/24 17:22 Reclast) FOLLOW-UP Sulfa (Sulfonamide Allergy Swelling Verified 11/21/24 16:16 Antibiotics) (sulfa drugs) Family History Mother CAD (coronary artery disease) Heart disease Hypertension Father CAD (coronary artery disease) Heart disease Hypertension Surgical History History of breast biopsy History of tonsillectomy and adenoidectomy H/O section Social History household members: spouse Smoking Status: Never smoker alcohol intake: never substance use type: does not use ROS ROS ED Constitutional Constitutional ED: Denies chills or fever(s) Eyes Eyes: Denies blurry vision or change in vision ENT ENT ED: Denies sore throat Cardiovascular Cardiovascular: Denies chest pain Respiratory/Chest Respiratory/Chest: Reports cough and dyspnea Gastrointestinal Gastrointestinal: Denies abdominal pain, diarrhea, nausea or vomiting Genitourinary Genitourinary ED: Denies dysuria Musculoskeletal Musculoskeletal: Denies back pain Integumentary Denies rash Neurologic Neurologic: Denies headache(s) Hematologic/Lymphatic Hematologic/Lymphatic: Reports easy bleeding and easy bruising Allergic/Immunologic Allergic/Immunologic ED: Denies mouth swelling or tongue swelling EXAM Physical Exam Const Vital Signs: 11/26/24 01:08 11/26/24 01:08 11/26/24 01:17 Temperature 96.5 F L 96.5 F L Temperature Source Axillary Oral Pulse Rate 96 90 Respiratory Rate 34 H 26 H Respiratory Effort Short of Breath Labored Respiratory Depth Normal Respiratory Pattern Normal Blood Pressure 130/111 H 130/111 H Blood Pressure Mean 117 117 Pulse Ox 97 96 Oxygen Delivery Method Nasal Cannula Room Air Nasal Cannula Oxygen Flow Rate (L/min) 6 Fraction of Inspired Oxygen (FIO2) 11/26/24 01:25 11/26/24 01:50 11/26/24 02:08 Temperature Temperature Source Pulse Rate 90 82 83 Respiratory Rate 26 H 26 H 21 H Respiratory Effort Respiratory Depth Respiratory Pattern Tachypnea Tachypnea Blood Pressure 110/75 Blood Pressure Mean 86 Pulse Ox 98 97 Oxygen Delivery Method Oxygen Flow Rate (L/min) Fraction of Inspired Oxygen (FIO2) 35 11/26/24 02:10 11/26/24 02:17 11/26/24 03:08 Temperature 96.1 F L Temperature Source Axillary Pulse Rate 84 82 82 Respiratory Rate 22 H 18 22 H Respiratory Effort Respiratory Depth Respiratory Pattern Tachypnea Blood Pressure 110/75 135/74 H Blood Pressure Mean 86 94 Pulse Ox 97 97 98 Oxygen Delivery Method Bi-pap Bi-pap Oxygen Flow Rate (L/min) Fraction of Inspired Oxygen (FIO2) 30 11/26/24 03:17 11/26/24 03:17 11/26/24 03:50 Temperature 96.9 F L 96.9 F L Temperature Source Axillary Pulse Rate 82 83 81 Respiratory Rate 22 H 21 H 19 H Respiratory Effort Respiratory Depth Respiratory Pattern Normal Blood Pressure 135/74 H 135/74 H Blood Pressure Mean 94 94 Pulse Ox 98 98 93 Oxygen Delivery Method Bi-pap Oxygen Flow Rate (L/min) Fraction of Inspired Oxygen (FIO2) 11/26/24 04:00 11/26/24 04:00 11/26/24 05:00 Temperature 97 F L Temperature Source Axillary Pulse Rate 80 80 82 Respiratory Rate 17 19 H 18 Respiratory Effort Respiratory Depth Respiratory Pattern Blood Pressure 141/81 H 141/81 H 131/80 H Blood Pressure Mean 101 101 97 Pulse Ox 96 96 95 Oxygen Delivery Method Bi-pap Bi-pap Bi-pap Oxygen Flow Rate (L/min) Fraction of Inspired Oxygen (FIO2) 11/26/24 05:56 Temperature Temperature Source Pulse Rate 88 Respiratory Rate 20 H Respiratory Effort Respiratory Depth Respiratory Pattern Blood Pressure Blood Pressure Mean Pulse Ox Oxygen Delivery Method Oxygen Flow Rate (L/min) Fraction of Inspired Oxygen (FIO2) Positive well nourished, well developed and obese General Appearance ED: well developed; Negative for pallor Nutritional Appearance: obese HEENT HEENT Narrative: No tongue or lip swelling no oral lesions no airway edema or compromise No secondary findings in the posterior pharynx to suggest infection Eyes PERRL and EOMs intact bilaterally General Eye ED: Negative for scleral icterus Neck supple and no JVD Chest Wall palpation of chest normal Resp Resp Narrative: Patient is in respiratory distress with tachypnea and accessory muscle use and dyspnea with speech Breath sounds are diminished throughout with diffuse rhonchi noted as well Cardio regular rate and regular rhythm Rate: other Other Details: Radial and carotid pulses are equal and symmetric GI normal to inspection, nondistended, normoactive bowel sounds, non-tender, non-distended and no masses GI Narrative: No voluntary guarding or rigidity or pulsatile mass No fluid wave noted Auscultation: normoactive bowel sounds Palpation: soft Extremity normal to inspection Extremity Narrative: No asymmetric edema no pitting edema negative Homans' sign bilaterally Neuro oriented x3, CN's II-XII intact bilaterally and no sensory deficits noted Sensorium / Orientation: alert Motor Exam: strength 5/5 throughout Psych mental status grossly normal Skin no rashes or lesions noted General Skin Exam: Negative for jaundice or pallor MDM MDM MDM Narrative Medical decision making narrative: Patient arrived to the ER in respiratory distress with tachypnea accessory muscle use and dyspnea with speech. She reportedly has a history of asthma but there were no obvious wheezes noted on exam. Instead there was coarse rhonchi/crackles throughout concerning for CHF. Secondary to this she was placed on BiPAP. With placement on the BiPAP the patient's pulse ox improved to 98 to 100% and her work of breathing resolved as well. Her proBNP is approximately 3700 and this is elevated from approximately 1000 just a few days ago concerning for/consistent with CHF exacerbation. As she was recently admitted for a pulmonary embolus there is concern that this has worsened and is now led to a saddle embolus and right sided heart strain so a CTA was repeated. CTA did not reveal PE but did show changes concerning for developing infection. The patient's white count is elevated at 15.5 and she does have left shift with a neutrophil count of 8.9. With concern for infectious process the patient had blood cultures obtained and will start on vancomycin and Zosyn secondary to her recent hospitalization. There was concern it could be viral in nature as well such COVID versus influenza versus RSV but the swab was negative increased concern for bacterial infection. At this time the patient does not have a saddle pulmonary embolus there is no right sided heart strain but her proBNP is grossly elevated from her recent indicating CHF and therefore IV Lasix was provided. However as the CTA indicates more an infectious process vancomycin and Zosyn were provided. As she does not require supplemental oxygen at home but now is requiring BiPAP to increase her pulse ox and control work of breathing she is not safe for discharge and therefore the case was discussed with the hospitalist. He agrees to accept her for continued care and therefore should be admitted to the medicine service for further treatment. History & Record Review Discussion w/independent historian: EMS personnel and Patient Lab Data Attestation: I reviewed the patient's lab results. Labs: Laboratory Results - last 24 hr 11/26/24 01:18 WBC 15.5 H RBC 4.77 Hgb 14.9 Hct 43.7 MCV 91.6 MCH 31.2 MCHC 34.1 RDW Std Deviation 45.1 H RDW Coeff of Ayesha 13.2 Plt Count 416 MPV 9.2 Immature Gran % (Auto) 1.000 H Neut % (Auto) 57.3 Lymph % (Auto) 30.8 [place] % (Auto) 8.3 Eos % (Auto) 1.9 Baso % (Auto) 0.7 Absolute Neuts (auto) 8.9 H Absolute Lymphs (auto) 4.76 H Nucleated RBC % 0 Sodium 132 L Potassium 4.4 Chloride 93 L Carbon Dioxide 24.4 Anion Gap 15 BUN 14 Creatinine 0.71 Est GFR (MDRD) Non-Af 86 BUN/Creatinine Ratio 19.9 Glucose 242 H Calcium 9.4 Magnesium 1.9 NT pro BNP II 3658 H Radiography Diagnostic Testing: Clinical Impression(s) from Imaging Studies Chest X-Ray 11/26/24 01:22 IMPRESSION: Streaky opacities within the bilateral lung bases, likely atelectasis or pneumonitis. Reading Location: [facility] Chest CTA 11/26/24 01:49 IMPRESSION: *No evidence of pulmonary emboli up to the segmental arterial branches. More peripheral vessels are not well characterized. *Consolidative opacity within the left lower lobe and patchy opacities within the right upper lobe with interstitial thickening within the bilateral upper lobes, and right lower lobe raising concern for multifocal infection and superimposed atelectasis or scarring. Reading Location: [facility] Chest x-ray as interpreted by the emergency medicine physician reveals increased pulmonary vascularity concerning for congestive heart failure without acute infiltrate or pneumothorax Discharge Plan Dx/Rx/DC Orders Clinical Impression: Acute respiratory failure with hypoxia, Multifocal pneumonia, History of pulmonary embolism, Congestive heart failure, Hypertension Disposition Disposition: Acute Care Hospital [facility] Discharge Date/Time: 11/26/24 06:30
[2024-11-26 06:10] LABS: Allen Test Positive; Base Excess 7 mmol/L (-2 to +2); Bicarbonate 30.7 mmol/L (22-26); Blood Gas Specimen Type ART; Comment 14/7 cmH2O; Mode Not entered; O2 Delivery Device BiPAP; PO2 90 mmHG (75-100); RR 12; SITE L Radial; SO2 98 % (95-99); Total Carbon Dioxide 32 mmol/L; pCO2 41.7 mmHg (35-45); pH 7.48 (7.35-7.45)
[2024-11-26 06:31] LABS: Lactic Acid 1.1 mmol/L (0.0-2.0)
[2024-11-26 07:35] LABS: Alcohol, Blood (Medical)-Serum < 10.1 mg/dL (<=10.0)
[2024-11-26 07:49] LABS: Magnesium 1.7 mg/dL (1.5-2.2); Vitamin B12 762 pg/mL (180-914)
[2024-11-26 08:09] LABS: Amphetamine Urine NEGATIVE (<1000 ng/mL); Barbiturate Urine NEGATIVE (< 200 ng/mL); Benzodiazepine Urine NEGATIVE (< 200 ng/mL); Buprenorphine Urine NEGATIVE (< 200 ng/mL); Cocaine Urine NEGATIVE (< 300 ng/mL); Fentanyl, Urine NEGATIVE; Methadone Urine NEGATIVE (< 300 ng/mL); Opiates Urine NEGATIVE (< 300 ng/mL); Oxycodone, Urine NEGATIVE (< 100 ng/mL); PCP Urine NEGATIVE (< 25 ng/mL); THC Urine NEGATIVE (< 50 ng/mL)
--- NOTE | 2024-11-26 09:03 | PCM.HOSP.N ---
Hospitalist Note Today patient seen on the floor, she is now off of BiPAP. She is on 2 L nasal cannula, reports that she is feeling better than she was in a significant chair eating # Significant respiratory distress necessitating BiPAP secondary to pneumonia with exacerbation of heart failure with reduced ejection fraction with suspected concomitant asthma/COPD exacerbation -Admit to telemetry - In the ED CTA did not reveal PE but there were changes consistent with multifocal pneumonia and additionally white blood cell count was 15.5, no new PE seen down to the subsegmental levels - proBNP also elevated at 3700 up from thousand just a few days ago concerning for fluid overload - Patient had recent echo 11/21 which showed EF of 40%, she was also noted that admission to be positive for rhinovirus -DuoNebs and as needed albuterol -Sputum culture, did have recent positive rhinovirus -Urine antigens -Mucinex, I/S -Patient on Zosyn due to recent hospitalization and significance of her respiratory distress on arrival, she was also started on vancomycin, will obtain MRSA swab and if negative will discontinue -Continue IV lasix -heart healthy diet - If patient has wheezing may need to start IV steroids # Recently diagnosed PE - Patient was admitted last week for hypoxia and respiratory distress and was found to have a PE - Continue Eliquis #Hypertension - Patient continued on her home metoprolol and home losartan #Depression/anxiety -Continue home medications #GERD -Continue PPI #DVT ppx: On Eliquis Aspen Keene MD
[2024-11-26] MEDS: Pantoprazole Sodium 40 MG in 0.9% Normal Saline (100mL MB+) 100 ML 330 MG IV (09:25)
[2024-11-26] MEDS: Lactobacillis Acidophilus 1 CAP PO (09:26)
[2024-11-26] MEDS: guaiFENesin 600 MG Tablet PO ×2 (09:27→21:54)
[2024-11-26] MEDS: Magnesium Chloride 64 MG Delay Rel.Tablet 128 MG PO ×2 (09:27→21:54)
[2024-11-26] MEDS: Ascorbic Acid 500 MG Tablet 1000 MG PO ×2 (09:27→21:54)
[2024-11-26] MEDS: APIXABAN 5 MG TABLET PO ×2 (09:27→21:54)
[2024-11-26] MEDS: Metoprolol(XL)Succ 100 MG Tablet PO (09:28)
[2024-11-26] MEDS: Sertraline 100 MG Tablet 150 MG PO (09:28)
[2024-11-26] MEDS: Potassium Chloride Oral Tablet 20 MEQ PO (09:29)
[2024-11-26] MEDS: Cholecalciferol (Vit D3) 125 MCG CAPSULE (5,000 UNITS) PO (09:30)
[2024-11-26] MEDS: Zinc Sulfate 50 mg zinc (220 mg) ORAL capsule PO (09:30)
[2024-11-26] MEDS: 0.9% Saline Lock 10 ML Syringe IV (09:32)
[2024-11-26] MEDS: Timolol 0.5% 5ML OPTH.BTL 1 DRP OPHTHALMIC ×2 (09:32→21:55)
[2024-11-26 09:54] LABS: Cholesterol 230 mg/dL (<=200); High Density Lipoprotein 55 mg/dL; Low Density Lipoprotein Calc. 145 mg/dL; Triglycerides 153 mg/dL; Very Low Density Lipoprotein 31 mg/dL (5-40)
[2024-11-26] MEDS: Ipratropium 0.5 MG/2.5 ML SOLUTION INHALATION ×2 (11:05→19:12)
--- NOTE | 2024-11-26 11:44 | PCM.RX.CS ---
Consult Antibiotic Management Pharmacy has been consulted to manage selected antibiotic: Vancomycin Type of Intervention Type of Consult: New start Suspected Infection Suspected Infection: Pneumonia Labs Labs: Sodium 132 mmol/L (133-145) L 11/26/24 01:18 Potassium 4.4 mmol/L (3.3-5.1) 11/26/24 01:18 Chloride 93 mmol/L (98-108) L 11/26/24 01:18 Carbon Dioxide 24.4 mmol/L (21.0-32.0) 11/26/24 01:18 Anion Gap 15 (5-15) 11/26/24 01:18 BUN 14 mg/dL (4-19) 11/26/24 01:18 Creatinine 0.71 mg/dL (0.70-1.20) 11/26/24 01:18 Est GFR (MDRD) Non-Af 86 (>60) 11/26/24 01:18 BUN/Creatinine Ratio 19.9 RATIO (10-20) 11/26/24 01:18 Glucose 242 mg/dL (70-99) H 11/26/24 01:18 Microbiology Microbiology: Microbiology 11/26/24 06:47 Urine, Clean Catch Legionella Antigen - Final 11/26/24 06:47 Urine, Clean Catch Streptococcus pneumoniae Antigen (M - Final 11/26/24 01:18 Mucosa - Nose SARS-CoV-2, Influenza & RSV (PCR) - Final Goal Trough Goal Trough: 15-20 mcg/mL Pharmacy Plan for Drug Dosing Pharmacy Plan for Drug Dosing: NEW START IV VANCOMYCIN Consulting Physician: Dr Cartagena Indication: Pneumonia Goal Trough: 15-20 SrCr: 0.71 CrCl: 63ml/min Comments: ER dose of 1250mg IV x1 administered 11/26/24 @0522 Vancomycin Dose: 1000mg IV Q12h to start 11/26/24 @1700 Pending Level: 11/27/24 @1630 prior to 4th total dose per protocol Pharmacy Service will continue to monitor and adjust dosing as required.
[2024-11-26 12:14] LABS: Allen Test Positive; Base Excess 3 mmol/L (-2 to +2); Bicarbonate 26.5 mmol/L (22-26); Blood Gas Specimen Type ART; Mode Not entered; O2 Delivery Device Cannula; PO2 74 mmHG (75-100); SITE R Radial; SO2 96 % (95-99); Total Carbon Dioxide 28 mmol/L; pCO2 36.3 mmHg (35-45); pH 7.47 (7.35-7.45)
--- NOTE | 2024-11-26 14:05 | CHAPLAIN ---
Type of Pastoral Visit _x__ Initial Visit ___ Follow-up Visit ___ On-call Visit ___ General Patient Visit ___ Spiritual Assessment ___ Family Conference ___ Bereavement ___ Rapid Response ___ Code Blue ___ Other (describe below) Pastoral Care Referral From _x__ Patient ___ Family ___ Nurse ___ Physician ___ Branch Office Administrator ___ Road Consultant ___ Other (describe below) Sacrament/Intervention _x__ Active listening ___ Anointing ___ Faith ___ Bereavement ___ Communion ___ Moni exploration ___ ___ Life review ___ Prayer ___ Reconciliation ___ Sacrament of Sick _x__ Supportive presence ___ Wedding ___ Other (describe below) Pastoral Comments patient is eating lunch and has had to cough some; pt says that she just wants to get well and hopeful of healing; pt says that she doesn't really have a need for support and prefers that you don't stay and then get sick too; pt does request the motor equipment captain to check in another day if possible
[2024-11-26] MEDS: Albuterol 2.5 MG/3 ML VIAL.NEB. INHALATION (19:12)
[2024-11-26] MEDS: Atorvastatin Calcium 10 MG Tablet 5 MG PO (21:54)
[2024-11-26] MEDS: Methenamine Hippurate 1 GM Tablet PO (21:54)
[2024-11-27] VITALS (10 sets, daily range): BP systolic 121–127; BP diastolic 70–84; PULSE 68–81; RESP 16–20; TEMP 36.2–36.8; O2SAT 90–98; BMI 28.1
[2024-11-27 05:51] LABS: Absolute Lymphocyte Count 3.93 X10^3/uL (0.83-4.51); Absolute Neutrophil Count 12.9 X10^3/uL (2.0-7.7); Basophil# 0.11 X10^3/uL; Basophil% 0.6 % (0-1); Eosinophils% 0.5 % (0-5); Hematocrit 37.7 % (37-47); Hemoglobin 12.8 g/dL (12.0-15.0); Lymphocyte # 3.93 X10^3/ul (0.83-4.51); Lymphocyte % 20.7 % (19-41); Mean Corpuscular Hgb 30.6 pg (27.0-32.0); Mean Corpuscular Volume 90.2 fL (81-99); Mean Platelet Vol. 9.2 fl (6.2-12.0); Monocyte% 9.5 % (0-10); NRBC Flagged by Analyzer 0 % (0-5); Neutrophil % 67.9 % (47-70); POSITIVE DIFFERENTIAL YES; Platelet Count 340 K/mm3 (150-450); RBC Distribution Width CV 13.6 % (11.6-14.6); RBC Distribution Width SD 44.6 fl (35.1-43.9); Red Blood Count 4.18 M/mm3 (4.2-5.4)
[2024-11-27 05:54] LABS: Differential Indicated SCAN CRITERIA MET
--- NOTE | 2024-11-27 05:55 | RAD_ITS ---
PROCEDURE: CHEST 1 VIEW (PORTABLE) 11/27/2024 REASON FOR EXAM: MULTIFOCAL PNEUMONIA AND AE CHF. TECHNIQUE: Frontal view of the chest. COMPARISON: November 26, 2024 FINDINGS: Hardware: None Heart: Cardiomediastinal silhouette is within normal limits. Normal pulmonary vascularity. Lungs: Streaky opacities within the bilateral lower lobes, likely representing atelectasis or scarring. Bones: No acute fractures. Other: RAD/Chest 1 View (Portable) IMPRESSION: No significant interval change compared to chest radiograph dated November 26, 2024 Reading Location: [facility]
[2024-11-27] MEDS: Piperacil/Tazobactam 3.375 GM in 0.9% Normal Saline (50mL MB+) 50 ML IV ×3 (06:20→21:10)
[2024-11-27 06:46] LABS: Differential Comment SCANNED; Platelet Estimate ADEQUATE (ADEQ)
[2024-11-27 06:47] LABS: Pathologist Review May foll; Red Cell Morphology NORM C+C NORMAL (NORM C&C)
[2024-11-27 06:54] LABS: Pro- Brain NATRIURETIC PEPTIDE 1939 pg/mL (<=1800)
[2024-11-27 06:57] LABS: AST(SGOT) 29 U/L (<=31); Alanine Aminotransfer ALT/SGPT 31 U/L (<=34); Albumin, Serum 3.4 g/dL (3.4-4.8); Alkaline Phosphatase 94 U/L (35-104); Anion Gap 14 (5-15); BUN 24 mg/dL (4-19); BUN/Creat Ratio 32.7 RATIO (10-20); Calcium,Total 8.7 mg/dL (7.6-11.0); Carbon Dioxide 24.9 mmol/L (21.0-32.0); Chloride 94 mmol/L (98-108); Creatinine, Serum 0.74 mg/dL (0.70-1.20); EST Glomerular Filtration Rate 81 (>60); Estimated Creatinine Clearance 63.73 ml/min (50-250); Globulin 3.3 g/dL (2.2-4.2); Glucose 98 mg/dL (70-99); Potassium 3.1 mmol/L (3.3-5.1); Protein, Total 6.7 g/dL (5.9-8.4); Sodium Level 133 mmol/L (133-145); Total Bilirubin 0.35 mg/dL (0.00-1.30)
[2024-11-27] MEDS: Ipratropium 0.5 MG/2.5 ML SOLUTION INHALATION (06:59)
[2024-11-27] MEDS: Potassium Chloride Oral Tablet 20 MEQ 40 MEQ PO (08:37)
[2024-11-27] MEDS: Methenamine Hippurate 1 GM Tablet PO ×2 (08:38→21:07)
[2024-11-27] MEDS: Pantoprazole Sodium 40 MG Tablet PO (08:38)
[2024-11-27] MEDS: Zinc Sulfate 50 mg zinc (220 mg) ORAL capsule PO (08:38)
[2024-11-27] MEDS: APIXABAN 5 MG TABLET PO ×2 (08:38→21:07)
[2024-11-27] MEDS: Ascorbic Acid 500 MG Tablet 1000 MG PO ×2 (08:38→21:08)
[2024-11-27] MEDS: Magnesium Chloride 64 MG Delay Rel.Tablet 128 MG PO ×2 (08:38→21:08)
[2024-11-27] MEDS: Cholecalciferol (Vit D3) 125 MCG CAPSULE (5,000 UNITS) PO (08:38)
[2024-11-27] MEDS: Sertraline 100 MG Tablet 150 MG PO (08:38)
[2024-11-27] MEDS: guaiFENesin 600 MG Tablet PO ×2 (08:39→21:07)
[2024-11-27] MEDS: 0.9% Saline Lock 10 ML Syringe IV ×2 (08:39→13:18)
[2024-11-27] MEDS: Timolol 0.5% 5ML OPTH.BTL 1 DRP OPHTHALMIC ×2 (08:40→21:11)
[2024-11-27] MEDS: Potassium Chloride Oral Tablet 20 MEQ PO (08:41)
[2024-11-27] MEDS: Furosemide 40 MG Tablet PO (10:34)
[2024-11-27] MEDS: Metoprolol(XL)Succ 100 MG Tablet PO (10:35)
--- NOTE | 2024-11-27 14:04 | CASEMGMT ---
SEGUNDO HERNÁNDEZ chart review: Patient was admitted 11/21-11/24/24 from bilateral PE, Asthma exacerbation, Pneumonia, and hypoxia. See Assessment from 11/21/24. Patient was discharged to home with [facility], family support, and follow-up plans in place. Patient returned to [facility] ED on 11/26/24 for increased SOB and was admitted for multifocal pneumonia, AE CHF, AE Asthma/COPD. Patient was 70% on room air and was started on Bipap, BNP 3700, and started on IV Lasix. SEGUNDO HERNÁNDEZ in to discuss needs at discharge and readmission. Patient states she was taking her medications as prescribed and was able to fill prescription without any issues. Patient [facility] had been out to see patient on Monday. Patient has not yet scheduled her follow-up appts. Patient states she would like to return home with resumption of [facility]. Will monitor for home oxygen at discharge, patient prefers [employer] for DME. Patient had no further questions or concerns. CM will continue to follow this patient and plan for a safe discharge.
[2024-11-27] MEDS: Saliva Substitute 237 ML BOTTLE 15 ML MUCOUS MEM ×2 (15:13→21:09)
[2024-11-27] MEDS: Ipratropium/Albuterol Sulfate 3 ML AMPUL.NEB INHALATION (19:43)
--- NOTE | 2024-11-27 20:05 | PCM.PN.HOSP ---
Reason for Visit Reason for Visit: Diagnoses Overweight (11/26/24) Metabolic encephalopathy (11/26/24) Heart failure, unspecified (11/26/24) Pneumonia, unspecified organism (11/26/24) Chronic obstructive pulmonary disease with (acute) exacerbation (11/26/24) Acute respiratory failure with hypoxia (11/26/24) Personal history of pulmonary embolism (11/26/24) Subjective Subjective Patient still is felt significantly short of breath on ambulation despite breathing improving at rest, oxygen dropped to 90 on ambulation but did not drop further than that the patient reports that felt like it took a while for her to recover Objective Data Objective Data Vital Signs: Vital Signs Temp Pulse Resp BP Pulse Ox O2 Del Method O2 Flow Rate 97.6 F L 76 18 124/70 H 93 Room Air 2 11/27/24 16:30 11/27/24 16:30 11/27/24 16:30 11/27/24 16:30 11/27/24 16:30 11/27/24 16:30 11/27/24 16:54 FiO2 30 11/26/24 02:10 Oxygen Flow Rate (L/min) 2 Oxygen Delivery Method Room Air Weight: 84.1 kg Body Mass Index (BMI) 28.1 Intake & Output: Intake and Output for Last 24 Hours 11/25/24 11/26/24 11/27/24 23:59 23:59 23:59 Intake Total 1045 / 1045 910 / 910 Output Total 1100 / 1500 400 / 400 Balance -55 / -455 510 / 510 Lab / Micro Data 11/27/24 04:43 11/27/24 04:43 Labs: Laboratory Results - last 24 hr 11/27/24 04:43: WBC 19.0 H, RBC 4.18 L, Hgb 12.8, Hct 37.7, MCV 90.2, MCH 30.6, MCHC 34.0, RDW Std Deviation 44.6 H, RDW Coeff of Ayesha 13.6, Plt Count 340, MPV 9.2, Immature Gran % (Auto) 0.800, Neut % (Auto) 67.9, Lymph % (Auto) 20.7, [place] % (Auto) 9.5, Eos % (Auto) 0.5, Baso % (Auto) 0.6, Absolute Neuts (auto) 12.9 H, Absolute Lymphs (auto) 3.93, Nucleated RBC % 0, Differential Comment SCANNED, Diff Path Review December, Platelet Estimate ADEQUATE, RBC Morphology NORM C+C, Sodium 133, Potassium 3.1 L, Chloride 94 L, Carbon Dioxide 24.9, Anion Gap 14, BUN 24 H, Creatinine 0.74, Estim Creat Clear Calc 63.73, Est GFR (MDRD) Non-Af 81, BUN/Creatinine Ratio 32.7 H, Glucose 98, Calcium 8.7, Phosphorus 4.0, Total Bilirubin 0.35, AST 29, ALT 31, Alkaline Phosphatase 94, NT pro BNP II 1939 H, Total Protein 6.7, Albumin 3.4, Globulin 3.3, Albumin/Globulin Ratio 1.0 Micro: Microbiology 11/26/24 09:47 Nasal Secretion MRSA (PCR) - Final 11/26/24 06:47 Urine, Clean Catch Legionella Antigen - Final 11/26/24 06:47 Urine, Clean Catch Streptococcus pneumoniae Antigen (M - Final 11/26/24 01:18 Mucosa - Nose SARS-CoV-2, Influenza & RSV (PCR) - Final Radiography Diagnostic Testing: Radiology Impression Chest X-Ray 11/27/24 05:55 IMPRESSION: No significant interval change compared to chest radiograph dated November 26, 2024 Reading Location: [facility] Physical Exam Narrative General: Alert, oriented, no apparent distress HEENT: Atraumatic, normocephalic Eyes: Anicteric, normal conjunctiva, extraocular movements grossly intact Neck: Supple Respiratory: Somewhat diminished bilaterally, slight increased respiratory effort Cardiovascular: Regular rate GI: Soft, nontender, nondistended Extremities: No edema Musculoskeletal: Moving all extremities Neuro: No overt focal neurological deficits Skin: No rashes appreciated Psych: Cooperative Assessment & Plan Assessment/Plan (1) Multifocal pneumonia: PLAN: Plan # Significant respiratory distress necessitating BiPAP secondary to pneumonia with exacerbation of heart failure with reduced ejection fraction with suspected concomitant asthma/COPD exacerbation -Admit to telemetry - In the ED CTA did not reveal PE but there were changes consistent with multifocal pneumonia and additionally white blood cell count was 15.5, no new PE seen down to the subsegmental levels - proBNP also elevated at 3700 up from thousand just a few days ago concerning for fluid overload - Patient had recent echo 11/21 which showed EF of 40%, she was also noted that admission to be positive for rhinovirus -DuoNebs and as needed albuterol -Sputum culture, did have recent positive rhinovirus -Urine antigens -Mucinex, I/S -Patient on Zosyn due to recent hospitalization and significance of her respiratory distress on arrival, she was also started on vancomycin, will obtain MRSA swab and if negative will discontinue -Continue IV lasix -heart healthy diet - If patient has wheezing may need to start IV steroids -11/27: Patient is improving but still has significant shortness of breath on exertion, discussed IV steroids but patient reports she has significant psychiatric side effects but is agreeable to inhaled steroids, also changed albuterol nebs to DuoNebs Chronic medical problems and/or problems not being actively addressed during today's encounter: # Recently diagnosed PE - Patient was admitted last week for hypoxia and respiratory distress and was found to have a PE - Continue Eliquis #Hypertension - Patient continued on her home metoprolol and home losartan #Depression/anxiety -Continue home medications #GERD -Continue PPI #DVT ppx: On Eliquis Aspen Keene MD Charges/Coding Visit Charges Inpatient E&M: 68270 Subs Hosp L1
[2024-11-27] MEDS: Atorvastatin Calcium 10 MG Tablet 5 MG PO (21:07)
--- NOTE | 2024-11-27 21:29 | CPS ---
Patient refused PAP therapy for night time use.
[2024-11-27] MEDS: Albuterol 2.5 MG/3 ML VIAL.NEB. INHALATION (23:18)
[2024-11-28] VITALS (8 sets, daily range): BP systolic 114–144; BP diastolic 84–97; PULSE 62–86; RESP 17–20; TEMP 36.4–36.9; O2SAT 92–98; BMI 28.5
[2024-11-28] MEDS: Saliva Substitute 237 ML BOTTLE 15 ML MUCOUS MEM (05:59)
[2024-11-28] MEDS: 0.9% Saline Lock 10 ML Syringe IV (05:59)
[2024-11-28] MEDS: Piperacil/Tazobactam 3.375 GM in 0.9% Normal Saline (50mL MB+) 50 ML IV (06:00)
[2024-11-28] MEDS: Ipratropium/Albuterol Sulfate 3 ML AMPUL.NEB INHALATION ×2 (07:22→13:06)
[2024-11-28] MEDS: Budesonide Respules 0.5 MG/2 ML AMPUL.NEB. INHALATION (07:22)
[2024-11-28 07:45] LABS: Absolute Lymphocyte Count 3.62 X10^3/uL (0.83-4.51); Absolute Neutrophil Count 7.2 X10^3/uL (2.0-7.7); Basophil# 0.11 X10^3/uL; Basophil% 0.9 % (0-1); Eosinophil# 0.28 X10^3/uL; Eosinophils% 2.3 % (0-5); Hematocrit 37.6 % (37-47); Hemoglobin 12.6 g/dL (12.0-15.0); Lymphocyte # 3.62 X10^3/ul (0.83-4.51); Lymphocyte % 29.4 % (19-41); Mean Corp Hgb Conc 33.5 g/dL (32-36); Mean Corpuscular Hgb 30.6 pg (27.0-32.0); Mean Corpuscular Volume 91.3 fL (81-99); Mean Platelet Vol. 9.3 fl (6.2-12.0); Monocyte# 1.06 X10^3/uL; Monocyte% 8.6 % (0-10); NRBC Flagged by Analyzer 0 % (0-5); Neutrophil # 7.18 X10^3/uL (2.7-7.7); Neutrophil % 58.2 % (47-70); Platelet Count 356 K/mm3 (150-450); RBC Distribution Width CV 13.4 % (11.6-14.6); RBC Distribution Width SD 45.1 fl (35.1-43.9); Red Blood Count 4.12 M/mm3 (4.2-5.4); White Blood Count 12.3 K/mm3 (4.4-11.0)
[2024-11-28 08:24] LABS: Anion Gap 10 (5-15); BUN 18 mg/dL (4-19); BUN/Creat Ratio 29.6 RATIO (10-20); Calcium,Total 8.7 mg/dL (7.6-11.0); Carbon Dioxide 27.2 mmol/L (21.0-32.0); Chloride 99 mmol/L (98-108); Creatinine, Serum 0.61 mg/dL (0.70-1.20); EST Glomerular Filtration Rate 91 (>60); Estimated Creatinine Clearance 64.05 ml/min (50-250); Glucose 86 mg/dL (70-99); Phosphorus 3.1 mg/dL (2.7-4.5); Potassium 4.1 mmol/L (3.3-5.1); Sodium Level 136 mmol/L (133-145)
[2024-11-28] MEDS: Timolol 0.5% 5ML OPTH.BTL 1 DRP OPHTHALMIC (10:48)
[2024-11-28] MEDS: Sertraline 100 MG Tablet 150 MG PO (10:48)
[2024-11-28] MEDS: Furosemide 40 MG Tablet PO (10:49)
[2024-11-28] MEDS: Pantoprazole Sodium 40 MG Tablet PO (10:49)
[2024-11-28] MEDS: Zinc Sulfate 50 mg zinc (220 mg) ORAL capsule PO (10:49)
[2024-11-28] MEDS: Metoprolol(XL)Succ 100 MG Tablet PO (10:49)
[2024-11-28] MEDS: APIXABAN 5 MG TABLET PO (10:51)
[2024-11-28] MEDS: guaiFENesin 600 MG Tablet PO (10:51)
[2024-11-28] MEDS: Magnesium Chloride 64 MG Delay Rel.Tablet 128 MG PO (10:51)
[2024-11-28] MEDS: Ascorbic Acid 500 MG Tablet 1000 MG PO (10:51)
[2024-11-28] MEDS: Cholecalciferol (Vit D3) 125 MCG CAPSULE (5,000 UNITS) PO (10:51)
[2024-11-28] MEDS: Potassium Chloride Oral Tablet 20 MEQ PO (10:51)
[2024-11-28] MEDS: Methenamine Hippurate 1 GM Tablet PO (10:56)
--- NOTE | 2024-11-28 13:36 | PCM.DC ---
Discharge Instructions Diet Discharge Diet: - (2000 mg fluid restriction, limit sodium) DC O2, CPAP, BIPAP needs Home O2 Discharge instructions: No Dressing / Incision Discharge Activity: - (Increase activity as tolerated) Follow Up Care Test Results: Test results from this visit will be discussed in further detail at your follow-up appointment, if applicable. Discharge Plan Admission Admit Date/Time: 11/26/24 05:57 Primary Reason for Your Visit: Shortness of breath Attending Provider: Aspen Keene Primary Care Provider: Rito Zuleta Consulting Providers: Rickey Golden Instructions Patient Instructions: Using a Nebulizer (Adult), ED Pneumonia (Adult) Additional Instructions / Restrictions: DISCHARGE INSTRUCTIONS PLEASE READ *Please take this with you to your next doctors appointment* - You will be discharged on Augmentin 875 mg twice daily once tonight for an additional 7 days -Continue your inhaled tobramycin upon discharge until you can speak with your prescribing physician/lung doctor about this medication -You will be discharged on your home inhalers but you will also be given a prescription for ipratropium solution to use with the albuterol and nebulizer machine, advise doing this every 6 hours while awake for the first 4 to 5 days upon discharge and then it would be beneficial to discuss this with your upholstery covers inspector as well, would recommend calling your upholstery covers inspector upon discharge to schedule a close follow-up appointment if possible for further management -Weigh yourself every day. A sudden weight gain can mean you are retaining fluid. Weigh yourself at the same time of day and in the same kind of clothes. Ideally, weigh yourself first thing in the morning after you empty your bladder, but before you eat breakfast. -Please call your physician if your weight goes up by more than 2 pounds in 1 day or 5 pounds in 1 week. This can be a sign that you are retaining more fluid than you should be. Clues to weight gain include checking your ankles for swelling, or noticing you are short of breath when you lie down -Please limit your sodium intake to less than 3 g/day. Here are tips: Limit canned, dried, packaged, and fast foods. Don't add salt to your food at the table. Season foods with herbs instead of salt when you cook. When you eat out, ask that the palletiser operator not add any salt to your dish. Don't eat fried or greasy foods. Be careful of bottled beverages. They can contain a lot of salt -Please call your primary care provider's office upon discharge to schedule a hospital follow up within 1 week. -For any concerning signs or symptoms please call 911 or proceed to the nearest emergency department Discharge Orders/Prescriptions Prescriptions: New amoxicillin-pot clavulanate 875-125 mg tablet 1 tab PO BID 7 Days Qty: 15 0RF ipratropium-albuterol 0.5 mg-3 mg(2.5 mg base)/3 mL Solution For Nebulization 3 ml inhalation Q6H Qty: 180 0RF Continued albuterol sulfate 90 mcg/actuation HFA aerosol inhaler 2 puff inhalation Q4H PRN (Reason: wheezing SOB) atorvastatin 10 mg tablet 5 mg PO QHS metoprolol succinate 100 mg tablet extended release 24 hr 100 mg PO DAILY hydrochlorothiazide 25 mg tablet 25 mg PO DAILY methenamine hippurate 1 gram tablet 1 g PO BID sertraline 100 mg tablet 150 mg PO DAILY Spiriva Respimat 2.5 mcg/actuation mist 2 puff inhalation QHS timolol maleate 0.5 % drops 1 drp ophthalmic (eye) Q12H Biotene Dry Mouth Oral Rinse Mouthwash 15 ml mucous membrane 5X/DAY PRN (Reason: Dry Mouth) Qty: 0 0RF losartan 50 mg tablet 50 mg PO DAILY 30 Days Qty: 30 1RF Rx Instructions: Hold for SBP less than 130 mmHg tobramycin in 0.225 % NaCl 300 mg/5 mL solution for nebulization 5 ml INHALATION BID albuterol sulfate 2.5 mg /3 mL (0.083 %) solution for nebulization 2.5 mg inhalation Q4H PRN (Reason: shortness of breath or wheezing) ascorbic acid (vitamin C) [C-1000] 1,000 mg tablet 1 g PO BID Eliquis 5 mg Tablet 5 mg PO BID 30 Days Qty: 60 2RF Referrals / Follow Up: Rito Zuleta MD [Primary Care Provider] - Within 1 Week Marline Roberts MD [Non-Staff] - Within 2 Weeks Disposition Disposition (needs filled in before D/C Order can be placed): Home Health Service
--- NOTE | 2024-11-28 14:06 | PCM.DC.SUM ---
Providers Date of Admission: 11/26/24 Date of Discharge: 11/28/24 Primary Care Physician: Dr. Rito Zuleta MD Reason For Visit: MULTIFOCAL PNEUMONIS, AE ASTHMA/COPD Diagnosis Discharge Diagnosis (1) Multifocal pneumonia: Status: Acute Code(s): J18.9 - Pneumonia, unspecified organism Plan # Significant respiratory distress necessitating BiPAP secondary to pneumonia with exacerbation of heart failure with reduced ejection fraction with suspected concomitant asthma/COPD exacerbation # Recently diagnosed PE #Hypertension #Depression/anxiety #GERD Medications at Discharge Home Medications albuterol sulfate 90 mcg/actuation aerosol inhaler 2 puff inhalation Q4H PRN wheezing SOB 05/04/24 atorvastatin 10 mg tablet 5 mg PO QHS HLD 05/04/24 hydrochlorothiazide 25 mg tablet 25 mg PO DAILY bp 05/04/24 methenamine hippurate 1 gram tablet 1 g PO BID . 05/04/24 metoprolol succinate 100 mg tablet,extended release 24 hr 100 mg PO DAILY blood pressure 05/04/24 sertraline 100 mg tablet 150 mg PO DAILY . 05/04/24 timolol maleate 0.5 % eye drops 1 drp ophthalmic (eye) Q12H . 05/04/24 tiotropium bromide 2.5 mcg/actuation mist for inhalation (Spiriva Respimat) 2 puff inhalation QHS COPD 05/04/24 losartan 50 mg tablet 50 mg PO DAILY 1 month #30 tabs 05/08/24 saliva substitute combo no.9 (Biotene Dry Mouth Oral Rinse mouthwash) 15 ml mucous membrane 5X/DAY PRN Dry Mouth #0 mL 05/08/24 albuterol sulfate 2.5 mg/3 mL (0.083 %) solution for nebulization 2.5 mg inhalation Q4H PRN shortness of breath or wheezing 11/21/24 ascorbic acid (vitamin C) 1,000 mg tablet (C-1000) 1 g PO BID 11/21/24 tobramycin 300 mg/5 mL in 0.225 % sodium chloride for nebulization 5 ml inhalation BID 11/21/24 apixaban 5 mg tablet (Eliquis) 5 mg PO BID 30 days #60 tabs 11/24/24 amoxicillin 875 mg-potassium clavulanate 125 mg tablet 1 tab PO BID 7 days #15 tabs 11/28/24 ipratropium 0.5 mg-albuterol 3 mg (2.5 mg base)/3 mL nebulization soln 3 ml inhalation Q6H #180 mL 11/28/24 Hospital Course Summary of Care Provided Minutes Spent on Discharge: 33 Hospital Course: # Significant respiratory distress necessitating BiPAP secondary to pneumonia with exacerbation of heart failure with reduced ejection fraction with suspected concomitant asthma/COPD exacerbation # Recently diagnosed PE #Hypertension #Depression/anxiety #GERD 79-year-old female with the above presented [facility] ED 11/26/24 with shortness of breath. She had been admitted from 11/21 through 11/24 for hypoxia secondary to a rhinovirus infection and PE and was discharged home on Eliquis in stable condition however she subsequently had worsening shortness of breath on 11/26 prompting her to return to the ED, imaging suggestive of multifocal pneumonia and due to increased work of breathing she was placed on BiPAP, no new PE seen on CTA. Did have increase in white blood cell count as well so she was placed on antibiotics and hospitalist contacted for admission. There was a BNP of 3700 up from thousand just a couple of days before which had additional concern for fluid overload. Patient significantly improved with DuoNebs, antibiotics, inhaled budesonide and was able to ambulate without need for O2. She reported that because she has had a lot of phlegm she has been drinking a lot of water, counseled patient that this may have led to her fluid overload on top of her acute illness. On day of discharge breathing much better, still having some cough but feels comfortable going home. Discharge instructions as followed: - You will be discharged on Augmentin 875 mg twice daily once tonight for an additional 7 days -Continue your inhaled tobramycin upon discharge until you can speak with your prescribing physician/lung doctor about this medication -You will be discharged on your home inhalers but you will also be given a prescription for ipratropium solution to use with the albuterol and nebulizer machine, advise doing this every 6 hours while awake for the first 4 to 5 days upon discharge and then it would be beneficial to discuss this with your display fabrication supervisor as well, would recommend calling your display fabrication supervisor upon discharge to schedule a close follow-up appointment if possible for further management -Weigh yourself every day. A sudden weight gain can mean you are retaining fluid. Weigh yourself at the same time of day and in the same kind of clothes. Ideally, weigh yourself first thing in the morning after you empty your bladder, but before you eat breakfast. -Please call your physician if your weight goes up by more than 2 pounds in 1 day or 5 pounds in 1 week. This can be a sign that you are retaining more fluid than you should be. Clues to weight gain include checking your ankles for swelling, or noticing you are short of breath when you lie down -Please limit your sodium intake to less than 3 g/day. Here are tips: Limit canned, dried, packaged, and fast foods. Don't add salt to your food at the table. Season foods with herbs instead of salt when you cook. When you eat out, ask that the certified executive chef not add any salt to your dish. Don't eat fried or greasy foods. Be careful of bottled beverages. They can contain a lot of salt -Please call your primary care provider's office upon discharge to schedule a hospital follow up within 1 week. -For any concerning signs or symptoms please call 911 or proceed to the nearest emergency department Physical Exam Narrative General: Alert, oriented, no apparent distress HEENT: Atraumatic, normocephalic Eyes: Anicteric, normal conjunctiva, extraocular movements grossly intact Neck: Supple Respiratory: Improved air movement with normal respiratory effort Cardiovascular: Regular rate GI: Soft, nontender, nondistended Extremities: No edema Musculoskeletal: Moving all extremities Neuro: No overt focal neurological deficits Skin: No rashes appreciated Psych: Cooperative Weight / BMI Weight Weight: 85 kg Body Mass Index (BMI) 28.5 ABG / Lab / Microbiology Data 11/28/24 07:05 11/28/24 07:05 Laboratory: Laboratory Results - last 24 hr 11/28/24 07:05: WBC 12.3 H, RBC 4.12 L, Hgb 12.6, Hct 37.6, MCV 91.3, MCH 30.6, MCHC 33.5, RDW Std Deviation 45.1 H, RDW Coeff of Ayesha 13.4, Plt Count 356, MPV 9.3, Immature Gran % (Auto) 0.600, Neut % (Auto) 58.2, Lymph % (Auto) 29.4, Simpson % (Auto) 8.6, Eos % (Auto) 2.3, Baso % (Auto) 0.9, Absolute Neuts (auto) 7.2, Absolute Lymphs (auto) 3.62, Nucleated RBC % 0, Sodium 136, Potassium 4.1, Chloride 99, Carbon Dioxide 27.2, Anion Gap 10, BUN 18, Creatinine 0.61 L, Estim Creat Clear Calc 64.05, Est GFR (MDRD) Non-Af 91, BUN/Creatinine Ratio 29.6 H, Glucose 86, Calcium 8.7, Phosphorus 3.1 Microbiology: Microbiology 11/26/24 04:03 Blood Culture (Wb) - Line Draw Blood Culture - Preliminary No growth in 48 hours. 11/26/24 01:10 Blood Culture (Wb) - Anticubital Right Blood Culture - Preliminary No growth in 48 hours. 11/26/24 09:47 Nasal Secretion MRSA (PCR) - Final 11/26/24 06:47 Urine, Clean Catch Legionella Antigen - Final 11/26/24 06:47 Urine, Clean Catch Streptococcus pneumoniae Antigen (M - Final 11/26/24 01:18 Mucosa - Nose SARS-CoV-2, Influenza & RSV (PCR) - Final D/C Instructions Discharge Diet: - (2000 mg fluid restriction, limit sodium) DC O2, CPAP, BIPAP Needs Home O2 Discharge instructions: No Meaningful Use Info Meaningful Use Meaningful Use Diagnoses (Choose all that apply): CHF CHF NANCY/ARB ordered at discharge?: Yes Documented LVEF (%): 40 Ischemic Stroke Statin Dosing Therapy Reference: STATIN DOSE THERAPY REFERENCE: * Patients > 75 years receive moderate or high dose statin therapy. * Patients 75 years or YOUNGER should receive HIGH intensity statin dose unless contraindicated. You will be required to document reason for non-treatment if statin daily dose does not meet guidelines. HIGH DOSE STATIN THERAPY DAILY Atorvastatin > than or = to 40 mg Rosuvastatin > than or = to 20 mg Amlodipine + Atorvastatin > than or = to 2.5/40 mg Ezetimibe + Simvastatin 10/80 mg Simvastatin 80mg Discharge Plan Admission Admit Date/Time: 11/26/24 05:57 Primary Reason for Your Visit: Shortness of breath Attending Provider: Aspen Keene Primary Care Provider: Rito Zuleta Consulting Providers: Rickey Golden Instructions Patient Instructions: Using a Nebulizer (Adult), ED Pneumonia (Adult) Additional Instructions / Restrictions: DISCHARGE INSTRUCTIONS PLEASE READ *Please take this with you to your next doctors appointment* - You will be discharged on Augmentin 875 mg twice daily once tonight for an additional 7 days -Continue your inhaled tobramycin upon discharge until you can speak with your prescribing physician/lung doctor about this medication -You will be discharged on your home inhalers but you will also be given a prescription for ipratropium solution to use with the albuterol and nebulizer machine, advise doing this every 6 hours while awake for the first 4 to 5 days upon discharge and then it would be beneficial to discuss this with your display fabrication supervisor as well, would recommend calling your display fabrication supervisor upon discharge to schedule a close follow-up appointment if possible for further management -Weigh yourself every day. A sudden weight gain can mean you are retaining fluid. Weigh yourself at the same time of day and in the same kind of clothes. Ideally, weigh yourself first thing in the morning after you empty your bladder, but before you eat breakfast. -Please call your physician if your weight goes up by more than 2 pounds in 1 day or 5 pounds in 1 week. This can be a sign that you are retaining more fluid than you should be. Clues to weight gain include checking your ankles for swelling, or noticing you are short of breath when you lie down -Please limit your sodium intake to less than 3 g/day. Here are tips: Limit canned, dried, packaged, and fast foods. Don't add salt to your food at the table. Season foods with herbs instead of salt when you cook. When you eat out, ask that the certified executive chef not add any salt to your dish. Don't eat fried or greasy foods. Be careful of bottled beverages. They can contain a lot of salt -Please call your primary care provider's office upon discharge to schedule a hospital follow up within 1 week. -For any concerning signs or symptoms please call 911 or proceed to the nearest emergency department Discharge Orders/Prescriptions Prescriptions: New amoxicillin-pot clavulanate 875-125 mg tablet 1 tab PO BID 7 Days Qty: 15 0RF ipratropium-albuterol 0.5 mg-3 mg(2.5 mg base)/3 mL Solution For Nebulization 3 ml inhalation Q6H Qty: 180 0RF Continued albuterol sulfate 90 mcg/actuation HFA aerosol inhaler 2 puff inhalation Q4H PRN (Reason: wheezing SOB) atorvastatin 10 mg tablet 5 mg PO QHS metoprolol succinate 100 mg tablet extended release 24 hr 100 mg PO DAILY hydrochlorothiazide 25 mg tablet 25 mg PO DAILY methenamine hippurate 1 gram tablet 1 g PO BID sertraline 100 mg tablet 150 mg PO DAILY Spiriva Respimat 2.5 mcg/actuation mist 2 puff inhalation QHS timolol maleate 0.5 % drops 1 drp ophthalmic (eye) Q12H Biotene Dry Mouth Oral Rinse Mouthwash 15 ml mucous membrane 5X/DAY PRN (Reason: Dry Mouth) Qty: 0 0RF losartan 50 mg tablet 50 mg PO DAILY 30 Days Qty: 30 1RF Rx Instructions: Hold for SBP less than 130 mmHg tobramycin in 0.225 % NaCl 300 mg/5 mL solution for nebulization 5 ml INHALATION BID albuterol sulfate 2.5 mg /3 mL (0.083 %) solution for nebulization 2.5 mg inhalation Q4H PRN (Reason: shortness of breath or wheezing) ascorbic acid (vitamin C) [C-1000] 1,000 mg tablet 1 g PO BID Eliquis 5 mg Tablet 5 mg PO BID 30 Days Qty: 60 2RF Referrals / Follow Up: Rito Zuleta MD [Primary Care Provider] - Within 1 Week Marline Roberts MD [Non-Staff] - Within 2 Weeks Disposition Disposition (needs filled in before D/C Order can be placed): Home Health Service Charges/Coding Visit Charges Inpatient E&M: 44605 Disch Hosp >30min
--- NOTE | 2024-11-28 14:07 | CHAPLAIN ---
Type of Pastoral Visit ___ Initial Visit _x__ Follow-up Visit ___ On-call Visit ___ General Patient Visit ___ Spiritual Assessment ___ Family Conference ___ Bereavement ___ Rapid Response ___ Code Blue ___ Other (describe below) Pastoral Care Referral From _x__ Patient ___ Family ___ Nurse ___ Physician ___ Roll Finisher ___ Taxi Driver Supervisor ___ Other (describe below) Sacrament/Intervention _x__ Active listening ___ Anointing ___ Hoahaoism ___ Bereavement ___ Communion _x__ Moni exploration ___ _x__ Life review _x__ Prayer ___ Reconciliation ___ Sacrament of Sick _x__ Supportive presence ___ Wedding ___ Other (describe below) Pastoral Comments patient was just starting to eat her lunch but welcomed a visit this time; pt was seen two days ago but felt too sick to visit; 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
--- NOTE | 2024-11-28 15:03 | CASEMGMT ---
Patient has order for discharge. SEGUNDO HERNÁNDEZ called [facility], start of care for tomorrow. SEGUNDO HERNÁNDEZ in to discuss discharge needs with patient, at bedside. RN EDGAR updated patient regarding [facility] start of care. Patient denies further needs or concerns at discharge. Patient and had no further questions or concerns. SEGUNDO HERNÁNDEZ updated discharge plan.
== END 2024-11-28 16:11 | disposition home health service (06) | DRG 189 ==
LOC: ED 05:57 → PCU 06:11
PROVIDERS: Admitting Provider Internal Medicine; Emergency Provider Emergency Medicine; PCP Family Medicine; Visit Provider Internal Medicine
DX: J96.01 Acute respiratory failure with hypoxia (principal); G93.41 Metabolic encephalopathy; I50.23 Acute on chronic systolic (congestive) heart failure; J18.9 Pneumonia, unspecified organism; J44.0 Chronic obstructive pulmonary disease with (acute) lower respiratory infection; J44.1 Chronic obstructive pulmonary disease with (acute) exacerbation; I11.0 Hypertensive heart disease with heart failure; E78.5 Hyperlipidemia, unspecified; K21.9 Gastro-esophageal reflux disease without esophagitis; I25.10 Atherosclerotic heart disease of native coronary artery without angina pectoris; F41.8 Other specified anxiety disorders; J45.909 Unspecified asthma, uncomplicated; Z68.29 Body mass index [BMI] 29.0-29.9, adult; E66.3 Overweight; Z79.01 Long term (current) use of anticoagulants; Z79.899 Other long term (current) drug therapy; Z79.51 Long term (current) use of inhaled steroids; Z86.711 Personal history of pulmonary embolism; Z87.440 Personal history of urinary (tract) infections
CPT/HCPCS: 36415; 36600; 71045; 71275; 80048; 80053; 80061; 80307; 82077; 82607; 82746; 82803; 83605; 83735; 83880; 84100; 84443; 85025; 87040; 87070; 87205; 87449; 87631; 87641; 93005; 94002; 94640; 94668; 97110; 97116; 97162; 97166; 97530; 97535; 99252; 99285; Q9967; A4216; G0463; J1940

== ENCOUNTER 2024-12-22 18:10 | Inpatient (IN) | payer MEDICARE, SELFPAY ==
[2024-12-22] VITALS (11 sets, daily range): BP systolic 95–185; BP diastolic 73–104; PULSE 72–88; RESP 16–24; TEMP 36.8–37.1; O2SAT 92–97; BMI 28.3; BMI 27.3
--- NOTE | 2024-12-22 18:41 | EKG12_ITS ---
Test Reason : SOB Blood Pressure : */* mmHG Vent. Rate : 75 BPM Atrial Rate : 75 BPM P-R Int : 204 ms QRS Dur : 72 ms QT Int : 394 ms P-R-T Axes : 62 19 136 degrees QTcB Int : 439 ms Normal sinus rhythm [address] & T wave abnormality, consider anterolateral ischemia Abnormal ECG Confirmed by Cecilio Rose ([id number]), production editor AZAEL FLORES ([id number]) on 12/27/2024 1:10:49 PM Referred By: DODIE Confirmed By: Cecilio Rose
--- NOTE | 2024-12-22 18:42 | EDS_ITS ---
HPI History of Present Illness Chief Complaint: Shortness of Breath Informant: patient and spouse/S.O. Narrative Narrative: 79-year-old female presenting to the emergency room with shortness of breath. Patient states that she has had 2 recent trips to the hospital. She states that she had the rhinovirus and developed pneumonia and also blood clots. She states she has a history of COPD and states that she was told she has congestive heart failure but that my heart has always been fine. She states for the past 6 weeks she has been at home and doing well. 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 She states that after she did her aerosol she began to have congestion in her chest and difficulty breathing. She took her Spiriva this afternoon and symptoms seem to get worse. She states that she feels very rattling in her chest and is having a hard time breathing. She has not required supplemental oxygen. She states she has not had no weight gain. She denies fever. She wonders if she has an allergy to the tobramycin. [facility] Medical History CKD (chronic kidney disease), stage II Non-Hodgkin lymphoma in adult Fibromyalgia Anxiety and depression Asthma HLD (hyperlipidemia) HTN (hypertension) Pneumonia Home Medications ?Medication ?Instructions ?Recorded ?Last Taken ?Type albuterol sulfate 90 mcg/actuation 2 puff inhalation Q 4H PRN wheezing 05/04/24 Unknown History aerosol inhaler SOB atorvastatin 10 mg tablet 5 mg PO QHS HLD 05/04/2410/15 History hydrochlorothiazide 25 mg tablet 25 mg PO DAILY bp 11/21/24 History methenamine hippurate 1 gram tablet 1 g PO BID . 05/0411/21/24 History metoprolol succinate 100 mg 100 mg PO DAILY blood pres sure 05/04/24 11/20/24 History tablet,extended release 24 hr sertraline 100 mg tablet 150 mg PO DAILY . 05/04/24 0 11/20/24 History timolol maleate 0.5 % eye drops 1 drp ophthalmic (eye) Q12H . 05/04/24 11/21/24 History tiotropium bromide 2.5 2 puff inhalation QHS COPD 0 05/04/24 11/20/24 History mcg/actuation mist for inhalation (Spiriva Respimat) losartan 50 mg tablet 50 mg PO DAILY 1 month #30 t abs 05/08/24 11/20/24 Rx saliva substitute combo no.9 15 ml mucous membrane 5X/ DAY PRN 05/08/24 11/20/24 Rx (Biotene Dry Mouth Oral Rinse Dry Mouth #0 mL mouthwash) albuterol sulfate 2.5 mg/3 mL 2.5 mg inhalation Q4H NC N 11/21/24 11/21/24 History (0.083 %) solution for nebulization shortness of breat h or wheezing ascorbic acid (vitamin C) 1,000 mg 1 g PO BID 11/21/24 11/21/24 History tablet (C-1000) tobramycin 300 mg/5 mL in 0.225 % 5 ml inhalation BID 11/21/24 11/21/24 History sodium chloride for nebulization apixaban 5 mg tablet (Eliquis) 5 mg PO BID 30 days #60 tabs 11/24/24 Unknown Rx ipratropium 0.5 mg-albuterol 3 mg 3 ml inhalation Q6H #180 mL 11/28/24 Unknown Rx (2.5 mg base)/3 mL nebulization soln Allergy/AdvReac Type Severity Reaction Status Date / Time fluticasone (From Advair Allergy Severe Anaphylaxis Verified 12/22/24 18:10 Diskus) Food Allergies: Uncoded Allergy Severe throat Verified 12/22/24 18:10 swelling lisinopril Allergy Severe Angioedema Verified 12/22/24 18:10 salmeterol (From Advair Allergy Severe Anaphylaxis Verified 12/22/24 18:10 Diskus) alendronate sodium (From Allergy Unknown PT UNSURE Verified 12/22/24 18:10 Fosamax) OF REACTION brimonidine Allergy Unknown NEEDS Verified 12/22/24 18:10 FOLLOW-UP celecoxib (From Celebrex) Allergy Unknown NEEDS Verified 12/22/24 18:10 FOLLOW-UP cephalexin (From Keflex) Allergy Unknown NEEDS Verified 12/22/24 18:10 FOLLOW-UP grepafloxacin (From Raxar) Allergy Unknown NEEDS Verified 12/22/24 18:10 FOLLOW-UP Influenza Virus Vaccines Allergy Unknown NEEDS Verified 12/22/24 18:10 (flu vaccine) FOLLOW-UP mannitol (From Reclast) Allergy Unknown NEEDS Verified 12/22/24 18:10 FOLLOW-UP methylprednisolone Allergy Unknown PT UNSURE Verified 12/22/24 18:10 OF REACTION nitrofurantoin (From Allergy Unknown NEEDS Verified 12/22/24 18:10 Macrodantin) FOLLOW-UP prednisone Allergy Unknown PT UNSURE Verified 12/22/24 18:10 OF REACTION propoxyphene (From Darvon) Allergy Unknown PT UNSURE Verified 12/22/24 18:10 OF REACTION Quinolones Allergy Unknown PT UNSURE Verified 12/22/24 18:10 OF REACTION sulfamethoxazole (From Allergy Unknown PT UNSURE Verified 12/22/24 18:10 Bactrim) OF REACTION trimethoprim (From Bactrim) Allergy Unknown PT UNSURE Verified 12/22/24 18:10 OF REACTION water for injection,sterile Allergy Unknown NEEDS Verified 12/22/24 18:10 (From Reclast) FOLLOW-UP zoledronic acid (From Allergy Unknown NEEDS Verified 12/22/24 18:10 Reclast) FOLLOW-UP Sulfa (Sulfonamide Allergy Swelling Verified 12/22/24 18:10 Antibiotics) (sulfa drugs) tobramycin AdvReac Intermediate Dyspnea, Verified 12/22/24 23:03 wheezing Family History Mother CAD (coronary artery disease) Heart disease Hypertension Father CAD (coronary artery disease) Heart disease Hypertension Surgical History History of breast biopsy History of tonsillectomy and adenoidectomy H/O section Social History household members: spouse Smoking Status: Never smoker alcohol intake: never substance use type: does not use ROS ROS ED Constitutional Constitutional ED: Denies chills, fever(s) or weight loss Eyes Eyes: Denies change in vision or diplopia ENT ENT ED: Denies ear pain, rhinorrhea or sore throat Cardiovascular Cardiovascular: Denies chest pain, orthopnea, palpitations or racing heartbeat Respiratory/Chest Respiratory/Chest: Reports cough, dyspnea and dyspnea on exertion; Denies orthopnea Gastrointestinal Gastrointestinal: Denies abdominal pain, diarrhea, nausea or vomiting Genitourinary Genitourinary ED: Denies dysuria, hematuria or urinary frequency Musculoskeletal Musculoskeletal: Denies arthralgias or myalgias Integumentary Denies abscess or rash Neurologic Neurologic: Denies headache(s) or weakness Psychiatric Psychiatric: Denies anxiety, depression, suicidal ideation or suicidal thoughts Endocrine Endocrinology: Denies polydipsia, polyphagia or polyuria Allergic/Immunologic Allergic/Immunologic ED: Denies mouth swelling, tongue swelling or urticaria EXAM Physical Exam Const Vital Signs: 12/22/24 18:10 12/22/24 19:23 12/22/24 19:24 Temperature 98.3 F 98.3 F Temperature Source Oral Oral Pulse Rate 83 73 Respiratory Rate 24 H 19 H Respiratory Effort Short of Breath Respiratory Depth Normal Respiratory Pattern Normal Blood Pressure 181/104 H 155/86 H Blood Pressure Mean 129 109 Pulse Ox 97 93 Oxygen Delivery Method Room Air Room Air Room Air 12/22/24 20:00 12/22/24 20:01 12/22/24 21:00 Temperature 98.3 F 98.2 F Temperature Source Oral Oral Pulse Rate 80 80 88 Respiratory Rate 16 16 16 Respiratory Effort Respiratory Depth Respiratory Pattern Normal Blood Pressure 185/96 H 163/81 H Blood Pressure Mean 125 108 Pulse Ox 93 94 Oxygen Delivery Method Room Air Room Air 12/22/24 22:00 12/22/24 22:15 Temperature 98.4 F 98.2 F Temperature Source Oral Pulse Rate 72 73 Respiratory Rate 16 16 Respiratory Effort Respiratory Depth Respiratory Pattern Blood Pressure 171/90 H 171/90 H Blood Pressure Mean 117 117 Pulse Ox 92 92 Oxygen Delivery Method Room Air Positive well nourished and well developed General Appearance ED: well developed and NAD HEENT Reports normocephalic, head/scalp atraumatic and moist mucous membranes Eyes PERRL and EOMs intact bilaterally Neck no lymphadenopathy, supple and no JVD Resp Resp Narrative: Patient appears to have conversational dyspnea. Auscultation: rhonchi lower bilaterally Cardio regular rate, regular rhythm and no murmurs GI normal to inspection, nondistended, normoactive bowel sounds and non-tender Palpation: soft Back/Spine no CVA tenderness and normal ROM Extremity normal to inspection General Extremety ED: Negative for edema General Extremity: Negative for edema Neuro oriented x3 and CN's II-XII intact bilaterally Sensorium / Orientation: alert Motor Exam: strength 5/5 throughout Psych mental status grossly normal Mood & Affect: Negative for depressed or tearful Skin no rashes or lesions noted and no wounds MDM MDM MDM Narrative Medical decision making narrative: Differential diagnosis includes but not limited to asthma/COPD exacerbation congestive heart failure acute coronary syndrome from pneumonia pulmonary embolism pleural effusion mucous plugging pneumothorax Basic blood work shows a white count of 9.9 hemoglobin 13.6 and platelet count of 269 BNP is 483 troponin is 12 and repeat is 15 glucose 106 creatinine 0.64 AST is 33 my independent interpretation of the chest x-ray is no acute process. Patient received breathing treatments. Patient has an extensive list of allergies most of which are questionable allergies. She states that Solu-Medrol caused her mind to go down a deep dark hole and she did not like how she responded on prednisone. She received breathing treatments. When she ambulates she still drops to 88% and is noticeably dyspneic. She does have rhonchorous lung sounds with few expiratory wheezes still. A CTA of the chest was obtained which does not demonstrate pulmonary embolism or acute changes in the lung jaffe from prior. Because of the patient's symptomology and the hypoxia with exertion I will speak with the hospitalist regarding admission History & Record Review Discussion w/independent historian: Patient and Significant other Additional record(s) reviewed:: Prior inpatient record, Prior ED visit and Prior labs Lab Data Attestation: I reviewed the patient's lab results. Labs: Laboratory Results - last 24 hr 12/22/24 12/22/24 12/22/24 18:51 18:51 19:21 WBC Cancelled 9.9 Corrected WBC Cancelled RBC Cancelled 4.38 Hgb Cancelled 13.6 Hct Cancelled 39.1 MCV Cancelled 89.3 MCH Cancelled 31.1 MCHC Cancelled 34.8 RDW Std Deviation Cancelled 43.9 RDW Coeff of Ayesha Cancelled 13.4 Plt Count Cancelled 269 MPV Cancelled 9.1 Immature Gran % (Auto) Cancelled 0.200 Neut % (Auto) Cancelled 71.1 H Lymph % (Auto) Cancelled 17.8 L [place] % (Auto) Cancelled 7.6 Eos % (Auto) Cancelled 2.7 Baso % (Auto) Cancelled 0.6 Absolute Neuts (auto) Cancelled 7.0 Absolute Lymphs (auto) Cancelled 1.76 Total Counted Cancelled Neutrophils % (Manual) Cancelled Band Neutrophils % Cancelled Lymphocytes % (Manual) Cancelled Monocytes % (Manual) Cancelled Eosinophils % (Manual) Cancelled Basophils % (Manual) Cancelled Metamyelocytes % Cancelled Myelocytes % Cancelled Promyelocytes % Cancelled Blast Cells % Cancelled Plasma Cell % (Manual) Cancelled Other Cells % Cancelled Nucleated RBC % Cancelled 0 Nucleated RBCs/100 WBC Cancelled Differential Comment Cancelled Diff Path Review Cancelled Hypersegmented Neuts Cancelled Atypical Lymphocytes Cancelled Reactive Lymphocytes Cancelled Smudge Cells Cancelled Toxic Granulation Cancelled Toxic Vacuolation Cancelled Dohle Bodies Cancelled Jacinta Rods Cancelled Platelet Estimate Cancelled Plt Morphology Comment Cancelled RBC Morphology Cancelled Cancelled Polychromasia Cancelled Hypochromasia Cancelled Basophilic Stippling Cancelled Anisocytosis Cancelled Microcytosis Cancelled Macrocytosis Cancelled Spherocytes Cancelled Sickle Cells Cancelled Target Cells Cancelled Tear Drop Cells Cancelled Ovalocytes Cancelled Stomatocytes Cancelled Bautista-Canova Bodies Cancelled Ascencion Cells Cancelled Bite Cells Cancelled Crenated Cell Cancelled Acanthocytes (Spur) Cancelled Rouleaux Cancelled Schistocytes Cancelled Sodium 135 Potassium 3.8 Chloride 98 Carbon Dioxide 22.9 Anion Gap 14 BUN 21 H Creatinine 0.64 L Estim Creat Clear Calc 63.84 Est GFR (MDRD) Non-Af 89 BUN/Creatinine Ratio 33.1 H Glucose 106 H Calcium 9.4 Total Bilirubin 0.35 AST 33 H ALT 18 Alkaline Phosphatase 98 Troponin T High Sens 12 D Troponin T Hi Sens 2 Hr NT pro BNP II 483 Total Protein 7.7 Albumin 4.0 Globulin 3.7 Albumin/Globulin Ratio 1.1 12/22/24 21:43 WBC Corrected WBC RBC Hgb Hct MCV MCH MCHC RDW Std Deviation RDW Coeff of Ayesha Plt Count MPV Immature Gran % (Auto) Neut % (Auto) Lymph % (Auto) [place] % (Auto) Eos % (Auto) Baso % (Auto) Absolute Neuts (auto) Absolute Lymphs (auto) Total Counted Neutrophils % (Manual) Band Neutrophils % Lymphocytes % (Manual) Monocytes % (Manual) Eosinophils % (Manual) Basophils % (Manual) Metamyelocytes % Myelocytes % Promyelocytes % Blast Cells % Plasma Cell % (Manual) Other Cells % Nucleated RBC % Nucleated RBCs/100 WBC Differential Comment Diff Path Review Hypersegmented Neuts Atypical Lymphocytes Reactive Lymphocytes Smudge Cells Toxic Granulation Toxic Vacuolation Dohle Bodies Jacinta Rods Platelet Estimate Plt Morphology Comment RBC Morphology Polychromasia Hypochromasia Basophilic Stippling Anisocytosis Microcytosis Macrocytosis Spherocytes Sickle Cells Target Cells Tear Drop Cells Ovalocytes Stomatocytes Bautista-Canova Bodies Hamilton Cells Bite Cells Crenated Cell Acanthocytes (Spur) Rouleaux Schistocytes Sodium Potassium Chloride Carbon Dioxide Anion Gap BUN Creatinine Estim Creat Clear Calc Est GFR (MDRD) Non-Af BUN/Creatinine Ratio Glucose Calcium Total Bilirubin AST ALT Alkaline Phosphatase Troponin T High Sens Troponin T Hi Sens 2 Hr 15 H NT pro BNP II Total Protein Albumin Globulin Albumin/Globulin Ratio Radiography Diagnostic Testing: Clinical Impression(s) from Imaging Studies Chest X-Ray 12/22/24 19:09 IMPRESSION: No Acute Findings. Reading Location: [facility] Chest CTA 12/22/24 20:37 IMPRESSION: No evidence of acute pulmonary embolism. Stable consolidative opacity left perihilar region and right middle lobe with interstitial thickening, similar to the CT from 11/26/2024. Findings likely secondary to scarring and atelectasis. Reading Location: [facility] EKG Initial EKG: Attestation: I personally reviewed and interpreted this EKG as follows: Comments: Normal sinus rhythm ventricular rate of 75 beats per minute Management Discussion w/another healthcare provider: Hospitalist (Dr Hood) Discharge Plan Disposition Disposition: Acute Care Hospital [facility] Discharge Date/Time: 12/22/24 23:33
--- NOTE | 2024-12-22 19:09 | RAD_ITS ---
PROCEDURE: CHEST 1 VIEW (PORTABLE) 12/22/2024 REASON FOR EXAM: DYSPNEA TECHNIQUE: Frontal view of the chest. COMPARISON: CT chest 11/26/2024 FINDINGS: Hardware: None Heart: Heart size is mildly enlarged. Lungs: Mild bibasilar atelectasis. No focal consolidation. No pneumothorax. No pleural effusion Bones: The bones are unremarkable. Other: RAD/Chest 1 View (Portable) IMPRESSION: No Acute Findings. [facility]
[2024-12-22 19:20] LABS: Pro- Brain NATRIURETIC PEPTIDE 483 pg/mL (<=1800); Troponin T High Sensitivity 12 ng/L (<=14)
[2024-12-22 19:30] LABS: Absolute Lymphocyte Count 1.76 X10^3/uL (0.83-4.51); Basophil# 0.06 X10^3/uL; Basophil% 0.6 % (0-1); Eosinophil# 0.27 X10^3/uL; Eosinophils% 2.7 % (0-5); Hematocrit 39.1 % (37-47); Hemoglobin 13.6 g/dL (12.0-15.0); Lymphocyte # 1.76 X10^3/ul (0.83-4.51); Lymphocyte % 17.8 % (19-41); Mean Corp Hgb Conc 34.8 g/dL (32-36); Mean Corpuscular Hgb 31.1 pg (27.0-32.0); Mean Corpuscular Volume 89.3 fL (81-99); Mean Platelet Vol. 9.1 fl (6.2-12.0); Monocyte# 0.75 X10^3/uL; Monocyte% 7.6 % (0-10); NRBC Flagged by Analyzer 0 % (0-5); Neutrophil % 71.1 % (47-70); Platelet Count 269 K/mm3 (150-450); RBC Distribution Width CV 13.4 % (11.6-14.6); RBC Distribution Width SD 43.9 fl (35.1-43.9); Red Blood Count 4.38 M/mm3 (4.2-5.4); White Blood Count 9.9 K/mm3 (4.4-11.0)
[2024-12-22 19:46] LABS: ALB/GLOB Ratio 1.1 RATIO (0.9-2.4); AST(SGOT) 33 U/L (<=31); Alanine Aminotransfer ALT/SGPT 18 U/L (<=34); Alkaline Phosphatase 98 U/L (35-104); Anion Gap 14 (5-15); BUN 21 mg/dL (4-19); BUN/Creat Ratio 33.1 RATIO (10-20); Calcium,Total 9.4 mg/dL (7.6-11.0); Carbon Dioxide 22.9 mmol/L (21.0-32.0); Chloride 98 mmol/L (98-108); Creatinine, Serum 0.64 mg/dL (0.70-1.20); EST Glomerular Filtration Rate 89 (>60); Estimated Creatinine Clearance 63.84 ml/min (50-250); Globulin 3.7 g/dL (2.2-4.2); Glucose 106 mg/dL (70-99); Potassium 3.8 mmol/L (3.3-5.1); Protein, Total 7.7 g/dL (5.9-8.4); Sodium Level 135 mmol/L (133-145); Total Bilirubin 0.35 mg/dL (0.00-1.30)
[2024-12-22] MEDS: Ipratropium/Albuterol Sulfate 3 ML AMPUL.NEB INHALATION (20:00)
--- NOTE | 2024-12-22 20:37 | CT_ITS ---
PROCEDURE: CTA CHEST W/WO CONTRAST 12/22/2024 REASON FOR EXAM: HYPOXIA DYSPNEA TECHNIQUE: CTA axial imaging of the chest with intravenous contrast. Multiplanar and multisequence images were obtained. PATIENT PREPARATION: Per protocol CONTRAST: Omnipaque 350 VOLUME: 100 mL Not Provided Gauge IV One or more dose reduction techniques were used (e.g., Automated exposure control, adjustment of the mA and/or kV according to patient size, use of iterative reconstruction technique). COMPARISON: CT chest 11/26/2024 FINDINGS: Hardware: None Lymph nodes: No suspicious adenopathy. Heart: No cardiomegaly. No pericardial effusion. Moderate coronary artery calcifications. Thoracic Aorta: 4.2 cm aneurysmal dilation ascending thoracic aorta. Pulmonary Vessels: No large central pulmonary emboli are identified. Contrast timing is suboptimal for evaluation of more distal branches. Most Proximal Level of Embolus (if embolus present): None Lungs and Airways: Central airways are patent without endobronchial lesions. Retained secretions within the trachea. Upper lobe predominant centrilobular emphysema. Stable appearance confluence perihilar airspace opacities left upper lower lobe, not significantly changed since 11/26/2024. Additional consolidative opacity in the anterior right middle lobe (series 2 image 107), is unchanged. Mild bilateral bronchial wall thickening. Mild interlobular septal thickening, in the lower lobes. No pneumothorax. No pleural effusion. Upper Abdomen: Visualized portions of the upper abdominal viscera are unremarkable. Bones: Degenerative changes of the thoracic spine. CT/CTA Chest W/WO Contrast IMPRESSION: No evidence of acute pulmonary embolism. Stable consolidative opacity left perihilar region and right middle lobe with i nterstitial thickening, similar to the CT from 11/26/2024. Findings likely secondary to scarring and atelectasis. Reading Location: [facility]
--- NOTE | 2024-12-22 22:07 | HP.PCM.HOS_ITS ---
HPI - General General Date of Admission: 12/22/24 Date of Service: 12/22/24 Chief Complaint: Dyspnea, wheezing, hypoxia. 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 She does report recent increased secretions but these are clear and says she has some difficulty bringing it up but feels as if it stuck in her throat. Workup in the ED included T98.3, heart rate 83, BP 191/104, respiratory rate 24, 97% on room air with most recent repeat vitals T98.2, heart rate 88, BP 163/81, respiratory rate 16, 94% on room air however ambulatory assessment with patient with pulse oximeter while walking noted to be 88%, CBC with WBC 9.9, hemoglobin 13.6, platelet 269 without marked shift, CMP with BUN/creatinine 21/0.64, GFR 89, glucose 106, not marked appearing hepatic profile, initial troponin 12, NT proBNP 43, chest x-ray with no acute cardiopulmonary findings, chest CTPA with no evidence of any acute pulmonary embolism, stable consolidative opacity in the left perihilar region and right middle lobe with interstitial thickening similar to CT 11/26/2024 likely secondary to scarring and atelectasis, EKG with SR without acute evidence of ischemia. In the ED patient administered DuoNeb therapy. COUNTS INCLUDE 234 BEDS AT THE [facility] Medical History CKD (chronic kidney disease), stage II Non-Hodgkin lymphoma in adult Fibromyalgia Anxiety and depression Asthma HLD (hyperlipidemia) HTN (hypertension) Pneumonia Home Medications ?Medication ?Instructions ?Recorded ?Last Taken ?Type albuterol sulfate 90 mcg/actuation 2 puff inhalation Q 4H PRN wheezing 05/04/24 Unknown History aerosol inhaler SOB atorvastatin 10 mg tablet 5 mg PO QHS HLD 05/04/2410/15 History hydrochlorothiazide 25 mg tablet 25 mg PO DAILY bp 11/21/24 History methenamine hippurate 1 gram tablet 1 g PO BID . 05/0411/21/24 History metoprolol succinate 100 mg 100 mg PO DAILY blood pres sure 05/04/24 11/20/24 History tablet,extended release 24 hr sertraline 100 mg tablet 150 mg PO DAILY . 05/04/24 0 11/20/24 History timolol maleate 0.5 % eye drops 1 drp ophthalmic (eye) Q12H . 05/04/24 11/21/24 History tiotropium bromide 2.5 2 puff inhalation QHS COPD 0 05/04/24 11/20/24 History mcg/actuation mist for inhalation (Spiriva Respimat) losartan 50 mg tablet 50 mg PO DAILY 1 month #30 t abs 05/08/24 11/20/24 Rx saliva substitute combo no.9 15 ml mucous membrane 5X/ DAY PRN 05/08/24 11/20/24 Rx (Biotene Dry Mouth Oral Rinse Dry Mouth #0 mL mouthwash) albuterol sulfate 2.5 mg/3 mL 2.5 mg inhalation Q4H CA N 11/21/24 11/21/24 History (0.083 %) solution for nebulization shortness of breat h or wheezing ascorbic acid (vitamin C) 1,000 mg 1 g PO BID 11/21/24 11/21/24 History tablet (C-1000) tobramycin 300 mg/5 mL in 0.225 % 5 ml inhalation BID 11/21/24 11/21/24 History sodium chloride for nebulization apixaban 5 mg tablet (Eliquis) 5 mg PO BID 30 days #60 tabs 11/24/24 Unknown Rx ipratropium 0.5 mg-albuterol 3 mg 3 ml inhalation Q6H #180 mL 11/28/24 Unknown Rx (2.5 mg base)/3 mL nebulization soln Allergy/AdvReac Type Severity Reaction Status Date / Time fluticasone (From Advair Allergy Severe Anaphylaxis Verified 12/22/24 18:10 Diskus) Food Allergies: Uncoded Allergy Severe throat Verified 12/22/24 18:10 swelling lisinopril Allergy Severe Angioedema Verified 12/22/24 18:10 salmeterol (From Advair Allergy Severe Anaphylaxis Verified 12/22/24 18:10 Diskus) alendronate sodium (From Allergy Unknown PT UNSURE Verified 12/22/24 18:10 Fosamax) OF REACTION brimonidine Allergy Unknown NEEDS Verified 12/22/24 18:10 FOLLOW-UP celecoxib (From Celebrex) Allergy Unknown NEEDS Verified 12/22/24 18:10 FOLLOW-UP cephalexin (From Keflex) Allergy Unknown NEEDS Verified 12/22/24 18:10 FOLLOW-UP grepafloxacin (From Raxar) Allergy Unknown NEEDS Verified 12/22/24 18:10 FOLLOW-UP Influenza Virus Vaccines Allergy Unknown NEEDS Verified 12/22/24 18:10 (flu vaccine) FOLLOW-UP mannitol (From Reclast) Allergy Unknown NEEDS Verified 12/22/24 18:10 FOLLOW-UP methylprednisolone Allergy Unknown PT UNSURE Verified 12/22/24 18:10 OF REACTION nitrofurantoin (From Allergy Unknown NEEDS Verified 12/22/24 18:10 Macrodantin) FOLLOW-UP prednisone Allergy Unknown PT UNSURE Verified 12/22/24 18:10 OF REACTION propoxyphene (From Darvon) Allergy Unknown PT UNSURE Verified 12/22/24 18:10 OF REACTION Quinolones Allergy Unknown PT UNSURE Verified 12/22/24 18:10 OF REACTION sulfamethoxazole (From Allergy Unknown PT UNSURE Verified 12/22/24 18:10 Bactrim) OF REACTION trimethoprim (From Bactrim) Allergy Unknown PT UNSURE Verified 12/22/24 18:10 OF REACTION water for injection,sterile Allergy Unknown NEEDS Verified 12/22/24 18:10 (From Reclast) FOLLOW-UP zoledronic acid (From Allergy Unknown NEEDS Verified 12/22/24 18:10 Reclast) FOLLOW-UP Sulfa (Sulfonamide Allergy Swelling Verified 12/22/24 18:10 Antibiotics) (sulfa drugs) tobramycin AdvReac Intermediate Dyspnea, Verified 12/22/24 23:03 wheezing Family History Mother CAD (coronary artery disease) Heart disease Hypertension Father CAD (coronary artery disease) Heart disease Hypertension Surgical History History of breast biopsy History of tonsillectomy and adenoidectomy H/O section Social History household members: spouse Smoking Status: Never smoker alcohol intake: never substance use type: does not use ROS ROS Narrative Admission Review of Systems: CONSTITUTIONAL: No weight loss, fever, chills, + weakness or fatigue. HEENT: Eyes: No visual loss, blurred vision, double vision or yellow sclerae. Ears, Nose, Throat: No hearing loss, sneezing, congestion, runny nose or sore throat. SKIN: No rash or itching, lesions, wounds. CARDIOVASCULAR: No chest pain, chest pressure or chest discomfort, palpitations, edema, orthopnea, syncopal events. RESPIRATORY: + Dyspnea, no marked cough, reports increased secretions in her throat, wheezing. No hemoptysis. GASTROINTESTINAL: No anorexia, nausea, vomiting or diarrhea, abdominal pain, melena, BRBPR. GENITOURINARY: No dysuria, frequency, urgency or retention. NEUROLOGICAL: No headache, dizziness, syncope, paralysis, ataxia, numbness or tingling in the extremities, focal weakness, change in bowel or bladder control, seizure. MUSCULOSKELETAL: + muscle, back pain, joint pain or stiffness. HEMATOLOGIC: No anemia. + Easy bleeding/bruising. LYMPHATICS: + History of enlarged nodes. No history of splenectomy. PSYCHIATRIC: + History of anxiety and depression. ENDOCRINOLOGIC: No reports of sweating, cold or heat intolerance. No polyuria or polydipsia. ALLERGIES: + History of asthma. Vital Signs Vital Signs Vital Signs: 12/22/24 18:10 12/22/24 19:23 12/22/24 19:24 Temperature 98.3 F 98.3 F Temperature Source Oral Oral Pulse Rate 83 73 Respiratory Rate 24 H 19 H Respiratory Effort Short of Breath Respiratory Depth Normal Respiratory Pattern Normal Blood Pressure 181/104 H 155/86 H Blood Pressure Mean 129 109 Pulse Ox 97 93 Oxygen Delivery Method Room Air Room Air Room Air 12/22/24 20:00 12/22/24 20:01 12/22/24 21:00 Temperature 98.3 F 98.2 F Temperature Source Oral Oral Pulse Rate 80 80 88 Respiratory Rate 16 16 16 Respiratory Effort Respiratory Depth Respiratory Pattern Normal Blood Pressure 185/96 H 163/81 H Blood Pressure Mean 125 108 Pulse Ox 93 94 Oxygen Delivery Method Room Air Room Air Weight Weight: 186 lb 1.122 oz Body Mass Index (BMI) 28.3 Physical Exam Narrative Physical Examination: General: Awake, alert, oriented x 3 and cooperative, seated upright in the ED bed in no apparent distress. Skin: Normal color, normal turgor, no icterus, no cyanosis except occasional stage ecchymoses, abrasion. HEENT: AT/NC, EOMI, PERRLA, MMM, no carotid bruits or JVD noted. Lungs: Diminished, > bases, no evidence of any distress, intermittent end expiratory wheezing, mildly rhonchorous, no rales. Heart: Regular rate and rhythm; no gallop, rub audible. Abdomen: Soft, NTTP, ND, normal BS, no appreciated HSM. Extremities: No cyanosis, no clubbing, no marked distal edema, chronic distal discomfort with palpation noted similar to previous evaluation Neurological: Patient awake, alert, oriented as noted, cognitive function intact; pupils equally reactive to light and accommodation, cranial nerves grossly normal, moving all 4 extremities, no focal deficits, strength moderately to severely globally decreased secondary to acute presentation. Psychiatric: Affect appears fatigued, again discussing that her belief that tobramycin may be the etiology, no acute evidence of depressive or anxiety feelings but does have underlying history. Results Lab / Micro Data 12/22/24 19:21 12/22/24 18:51 Labs: Laboratory Results - last 24 hr 12/22/24 18:51: WBC Cancelled, Corrected WBC Cancelled, RBC Cancelled, Hgb Cancelled, Hct Cancelled, MCV Cancelled, MCH Cancelled, MCHC Cancelled, RDW Std Deviation Cancelled, RDW Coeff of Ayesha Cancelled, Plt Count Cancelled, MPV Cancelled, Immature Gran % (Auto) Cancelled, Neut % (Auto) Cancelled, Lymph % (Auto) Cancelled, [place] % (Auto) Cancelled, Eos % (Auto) Cancelled, Baso % (Auto) Cancelled, Absolute Neuts (auto) Cancelled, Absolute Lymphs (auto) Cancelled, Total Counted Cancelled, Neutrophils % (Manual) Cancelled, Band Neutrophils % Cancelled, Lymphocytes % (Manual) Cancelled, Monocytes % (Manual) Cancelled, Eosinophils % (Manual) Cancelled, Basophils % (Manual) Cancelled, Metamyelocytes % Cancelled, Myelocytes % Cancelled, Promyelocytes % Cancelled, Blast Cells % Cancelled, Plasma Cell % (Manual) Cancelled, Other Cells % Cancelled, Nucleated RBC % Cancelled, Nucleated RBCs/100 WBC Cancelled, Differential Comment Cancelled, Diff Path Review Cancelled, Hypersegmented Neuts Cancelled, Atypical Lymphocytes Cancelled, Reactive Lymphocytes Cancelled, Smudge Cells Cancelled, Toxic Granulation Cancelled, Toxic Vacuolation Cancelled, Dohle Bodies Cancelled, Jacinta Rods Cancelled, Platelet Estimate Cancelled, Plt Morphology Comment Cancelled, RBC Morphology Cancelled 12/22/24 18:51: RBC Morphology Cancelled, Polychromasia Cancelled, Hypochromasia Cancelled, Basophilic Stippling Cancelled, Anisocytosis Cancelled, Microcytosis Cancelled, Macrocytosis Cancelled, Spherocytes Cancelled, Sickle Cells Cancelled, Target Cells Cancelled, Tear Drop Cells Cancelled, Ovalocytes Cancelled, Stomatocytes Cancelled, [place] Bodies Cancelled, [place] Cells Cancelled, Bite Cells Cancelled, Crenated Cell Cancelled, Acanthocytes (Spur) Cancelled, Rouleaux Cancelled, Schistocytes Cancelled, Sodium 135, Potassium 3.8, Chloride 98, Carbon Dioxide 22.9, Anion Gap 14, BUN 21 H, Creatinine 0.64 L , Estim Creat Clear Calc 63.84, Est GFR (MDRD) Non-Af 89, BUN/Creatinine Ratio 33.1 H, Glucose 106 H, Calcium 9.4, Total Bilirubin 0.35, AST 33 H, ALT 18, Alkaline Phosphatase 98, Troponin T High Sens 12 D, NT pro BNP II 483, Total Protein 7.7, Albumin 4.0, Globulin 3.7, Albumin/Globulin Ratio 1.1 12/22/24 19:21: WBC 9.9, RBC 4.38, Hgb 13.6, Hct 39.1, MCV 89.3, MCH 31.1, MCHC 34.8, RDW Std Deviation 43.9, RDW Coeff of Ayesha 13.4, Plt Count 269, MPV 9.1, Immature Gran % (Auto) 0.200, Neut % (Auto) 71.1 H, Lymph % (Auto) 17.8 L, [place] % (Auto) 7.6, Eos % (Auto) 2.7, Baso % (Auto) 0.6, Absolute Neuts (auto) 7.0, Absolute Lymphs (auto) 1.76, Nucleated RBC % 0 Imaging Radiology Impression Chest X-Ray 12/22/24 19:09 IMPRESSION: No Acute Findings. Reading Location: [facility] Chest CTA 12/22/24 20:37 IMPRESSION: No evidence of acute pulmonary embolism. Stable consolidative opacity left perihilar region and right middle lobe with interstitial thickening, similar to the CT from 11/26/2024. Findings likely secondary to scarring and atelectasis. [facility] Assessment & Plan Assessment/Plan (1) Acute exacerbation of COPD with asthma: PLAN: Plan The patient is an 79 y/o F w/ PMHx: CKD stage II per GFR trending, Remote Hx NH Lymphoma diagnosed remotely with no treatment per patient, Anxiety and Depression, Asthma, HTN, HLD, Fibromyalgia, recent admission 11/21/24 with bilateral lower lobe basal segmental pulmonary emboli at that time in the setting of also pneumonia, acute rhinovirus viral syndrome in addition to discharge with multifocal pneumonia with asthma/COPD exacerbation who presents to the [facility] ED on 12/22/2024 with history of increasing dyspnea with 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 #1. Acute hypoxia secondary to possible reaction again to resume tobramycin with similar complaints in the past in addition concern for mild acute COPD/asthma exacerbation complicated by stable consolidative opacity left perihilar region and right middle lobe with interstitial thickening suspected secondary to scarring and atelectasis with recent hospitalizations for acute COPD/asthma exacerbation, pneumonia unclear organism as well as acute mental viral syndrome in addition to bilateral segmental pulmonary: Will admit to HI, maintain on oxygen with wean as tolerated to room air, continue ATC duonebs, PRN albuterol, IV methylprednisolone, HOB, IS parameters, will obtain sputum Cx, respiratory viral panel, procalcitonin, will hold on immediately abx therapy but low threshold to add if appropriate. #2. Hypertension: Continue home regimen including hydrochlorothiazide, losartan, metoprolol with her primary's as needed, PRN hydralazine. #3. Hyperlipidemia: Continue statin therapy. #4. Anxiety and depression: We will continue patient home sertraline regimen. #5. NH lymphoma: Diagnosed remotely decades prior, denies having been treated with no routine follow-up with oncology in place per patient/family decision. #6. Fibromyalgia with chronic pain syndrome: Patient not on any chronic regimen, encourage offloading, fall precautions. #7. Chronic Kidney Disease Stage II per GFR trending: Admission BUN/Cr 21/0.64, GFR 89, baseline renal function primarily 0.4-0.7, repeat BMP in AM. #8. DVT prophylaxis: Continue heparin drip as noted. #9. CODE status: Patient KIRA is her and living will is currently in place. Full Code status. Charges/Coding Visit Charges Inpatient E&M: 87068 Init Hosp L3
[2024-12-22 22:24] LABS: Troponin T High Sens 2 HR 15 ng/L (<=14)
[2024-12-23] VITALS (11 sets, daily range): BP systolic 114–171; BP diastolic 59–97; PULSE 62–81; RESP 17–20; TEMP 36.5–37.2; O2SAT 91–96; BMI 27.3
[2024-12-23] MEDS: Losartan Potassium 50 MG Tablet PO (02:40)
[2024-12-23] MEDS: APIXABAN 5 MG TABLET PO ×3 (02:41→21:23)
[2024-12-23] MEDS: Methenamine Hippurate 1 GM Tablet PO ×3 (02:44→21:24)
[2024-12-23 02:55] LABS: Procalcitonin 0.03 ng/mL (<=0.10)
[2024-12-23] MEDS: Ipratropium/Albuterol Sulfate 3 ML AMPUL.NEB INHALATION ×4 (06:48→21:31)
[2024-12-23 07:56] LABS: Absolute Lymphocyte Count 2.68 X10^3/uL (0.83-4.51); Absolute Neutrophil Count 7.2 X10^3/uL (2.0-7.7); Basophil# 0.07 X10^3/uL; Basophil% 0.6 % (0-1); Eosinophil# 0.22 X10^3/uL; Hematocrit 39.4 % (37-47); Hemoglobin 13.6 g/dL (12.0-15.0); Lymphocyte # 2.68 X10^3/ul (0.83-4.51); Lymphocyte % 23.8 % (19-41); Mean Corp Hgb Conc 34.5 g/dL (32-36); Mean Corpuscular Hgb 30.7 pg (27.0-32.0); Mean Corpuscular Volume 88.9 fL (81-99); Mean Platelet Vol. 9.5 fl (6.2-12.0); Monocyte# 1.08 X10^3/uL; Monocyte% 9.6 % (0-10); NRBC Flagged by Analyzer 0 % (0-5); Neutrophil % 63.7 % (47-70); Platelet Count 285 K/mm3 (150-450); RBC Distribution Width CV 13.5 % (11.6-14.6); RBC Distribution Width SD 44.5 fl (35.1-43.9); Red Blood Count 4.43 M/mm3 (4.2-5.4); White Blood Count 11.3 K/mm3 (4.4-11.0)
[2024-12-23 09:00] LABS: ALB/GLOB Ratio 1.1 RATIO (0.9-2.4); AST(SGOT) 25 U/L (<=31); Alanine Aminotransfer ALT/SGPT 17 U/L (<=34); Albumin, Serum 3.9 g/dL (3.4-4.8); Alkaline Phosphatase 94 U/L (35-104); Anion Gap 13 (5-15); BUN 16 mg/dL (4-19); BUN/Creat Ratio 29.3 RATIO (10-20); Calcium,Total 9.4 mg/dL (7.6-11.0); Carbon Dioxide 25.1 mmol/L (21.0-32.0); Chloride 100 mmol/L (98-108); Creatinine, Serum 0.53 mg/dL (0.70-1.20); EST Glomerular Filtration Rate 93 (>60); Estimated Creatinine Clearance 62.88 ml/min (50-250); Globulin 3.5 g/dL (2.2-4.2); Glucose 99 mg/dL (70-99); Potassium 3.4 mmol/L (3.3-5.1); Protein, Total 7.4 g/dL (5.9-8.4); Sodium Level 137 mmol/L (133-145); Total Bilirubin 0.37 mg/dL (0.00-1.30)
[2024-12-23] MEDS: hydroCHLOROthiazide 25 MG Tablet PO (09:27)
[2024-12-23] MEDS: Metoprolol(XL)Succ 100 MG Tablet PO (09:28)
[2024-12-23] MEDS: Timolol 0.5% 5ML OPTH.BTL 1 DRP OPHTHALMIC ×2 (09:28→21:24)
[2024-12-23] MEDS: Sertraline 100 MG Tablet 150 MG PO (09:29)
--- NOTE | 2024-12-23 10:13 | CASEMGMT ---
Discharge Planning Pt states that she has both a HC POA and LW but that her is to unwell to located. Asked pt to bring in next time she is here for anything. SW updated. Coco Bacon DC Planning Asst.
--- NOTE | 2024-12-23 11:45 | PN_ITS ---
Subjective Subjective Patient seen and examined. She was admitted with a complaint of shortness of breath and wheezing. She feels better today and feels her shortness of breath has improved. She is on room air. Review of systems is otherwise negative. She was recently started on inhaled tobramycin. Objective Data Objective Data Vital Signs: Vital Signs Temp Pulse Resp BP Pulse Ox O2 Del Method 98.6 F 81 17 119/86 H 94 Room Air 12/23/24 09:16 12/23/24 11:25 12/23/24 11:25 12/23/24 09:16 12/23/24 09:16 12/23/24 10:14 Oxygen Delivery Method Room Air Weight: 180 lb 1.883 oz Body Mass Index (BMI) 27.3 Intake & Output: Intake and Output for Last 24 Hours 12/21/24 12/22/24 12/23/24 23:59 23:59 23:59 Intake Total 540 / 540 Balance 540 / 540 Lab / Micro Data 12/23/24 06:40 12/23/24 06:40 Labs: Laboratory Results - last 24 hr 12/22/24 18:51: WBC Cancelled, Corrected WBC Cancelled, RBC Cancelled, Hgb Cancelled, Hct Cancelled, MCV Cancelled, MCH Cancelled, MCHC Cancelled, RDW Std Deviation Cancelled, RDW Coeff of Ayesha Cancelled, Plt Count Cancelled, MPV Cancelled, Immature Gran % (Auto) Cancelled, Neut % (Auto) Cancelled, Lymph % (Auto) Cancelled, [place] % (Auto) Cancelled, Eos % (Auto) Cancelled, Baso % (Auto) Cancelled, Absolute Neuts (auto) Cancelled, Absolute Lymphs (auto) Cancelled, Total Counted Cancelled, Neutrophils % (Manual) Cancelled, Band Neutrophils % Cancelled, Lymphocytes % (Manual) Cancelled, Monocytes % (Manual) Cancelled, Eosinophils % (Manual) Cancelled, Basophils % (Manual) Cancelled, Metamyelocytes % Cancelled, Myelocytes % Cancelled, Promyelocytes % Cancelled, Blast Cells % Cancelled, Plasma Cell % (Manual) Cancelled, Other Cells % Cancelled, Nucleated RBC % Cancelled, Nucleated RBCs/100 WBC Cancelled, Differential Comment Cancelled, Diff Path Review Cancelled, Hypersegmented Neuts Cancelled, Atypical Lymphocytes Cancelled, Reactive Lymphocytes Cancelled, Smudge Cells Cancelled, Toxic Granulation Cancelled, Toxic Vacuolation Cancelled, Dohle Bodies Cancelled, Jacinta Rods Cancelled, Platelet Estimate Cancelled, Plt Morphology Comment Cancelled, RBC Morphology Cancelled 12/22/24 18:51: RBC Morphology Cancelled, Polychromasia Cancelled, Hypochromasia Cancelled, Basophilic Stippling Cancelled, Anisocytosis Cancelled, Microcytosis Cancelled, Macrocytosis Cancelled, Spherocytes Cancelled, Sickle Cells Cancelled, Target Cells Cancelled, Tear Drop Cells Cancelled, Ovalocytes Cancelled, Stomatocytes Cancelled, [place]aut[place] Bodies Cancelled, [place] Cells Cancelled, Bite Cells Cancelled, Crenated Cell Cancelled, Acanthocytes (Spur) Cancelled, Rouleaux Cancelled, Schistocytes Cancelled, Sodium 135, Potassium 3.8, Chloride 98, Carbon Dioxide 22.9, Anion Gap 14, BUN 21 H, Creatinine 0.64 L , Estim Creat Clear Calc 63.84, Est GFR (MDRD) Non-Af 89, BUN/Creatinine Ratio 33.1 H, Glucose 106 H, Calcium 9.4, Total Bilirubin 0.35, AST 33 H, ALT 18, Alkaline Phosphatase 98, Troponin T High Sens 12 D, NT pro BNP II 483, Total Protein 7.7, Albumin 4.0, Globulin 3.7, Albumin/Globulin Ratio 1.1 12/22/24 19:21: WBC 9.9, RBC 4.38, Hgb 13.6, Hct 39.1, MCV 89.3, MCH 31.1, MCHC 34.8, RDW Std Deviation 43.9, RDW Coeff of Ayesha 13.4, Plt Count 269, MPV 9.1, Immature Gran % (Auto) 0.200, Neut % (Auto) 71.1 H, Lymph % (Auto) 17.8 L, [place] % (Auto) 7.6, Eos % (Auto) 2.7, Baso % (Auto) 0.6, Absolute Neuts (auto) 7.0, Absolute Lymphs (auto) 1.76, Nucleated RBC % 0 12/22/24 21:43: Troponin T Hi Sens 2 Hr 15 H, Procalcitonin 0.03 12/23/24 06:40: WBC 11.3 H, RBC 4.43, Hgb 13.6, Hct 39.4, MCV 88.9, MCH 30.7, MCHC 34.5, RDW Std Deviation 44.5 H, RDW Coeff of Ayesha 13.5, Plt Count 285, MPV 9.5, Immature Gran % (Auto) 0.300, Neut % (Auto) 63.7, Lymph % (Auto) 23.8, [place] % (Auto) 9.6, Eos % (Auto) 2.0, Baso % (Auto) 0.6, Absolute Neuts (auto) 7.2, Absolute Lymphs (auto) 2.68, Nucleated RBC % 0, Sodium 137, Potassium 3.4, Chloride 100, Carbon Dioxide 25.1, Anion Gap 13, BUN 16, Creatinine 0.53 L, Estim Creat Clear Calc 62.88, Est GFR (MDRD) Non-Af 93, BUN/Creatinine Ratio 29.3 H, Glucose 99, Calcium 9.4, Total Bilirubin 0.37, AST 25, ALT 17, Alkaline Phosphatase 94, Total Protein 7.4, Albumin 3.9, Globulin 3.5, Albumin/Globulin Ratio 1.1 Micro: Microbiology 12/23/24 05:25 Mucosa - Nasopharyngeal Respiratory Panel (PCR) - Final Radiography Diagnostic Testing: Radiology Impression Chest X-Ray 12/22/24 19:09 IMPRESSION: No Acute Findings. Reading Location: [facility] Chest CTA 12/22/24 20:37 IMPRESSION: No evidence of acute pulmonary embolism. Stable consolidative opacity left perihilar region and right middle lobe with interstitial thickening, similar to the CT from 11/26/2024. Findings likely secondary to scarring and atelectasis. Reading Location: [facility] Physical Exam Const alert, oriented x3, no apparent distress and well nourished General Appearance: cooperative and well developed HEENT normocephalic, head/scalp atraumatic, moist oral mucous membranes and oropharynx normal Eyes PERRL and EOMs intact bilaterally Neck no lymphadenopathy, supple and no JVD Lymph Lymphatic: no lymphadenopathy noted Resp Resp Narrative: mildly diminished breath sounds bibasally, no wheezes or crackles. on room air. Cardio regular rate, regular rhythm, S1 normal heart sound, S2 normal heart sound and no murmurs GI normal to inspection, nondistended, normoactive bowel sounds, soft to palpation, non-tender and non-distended Extremity normal capillary refill, no clubbing, cyanosis or edema and no calf tenderness General Extremity: no tenderness to palpation of joints or extremities Skin General Skin Exam: no breakdown Neuro CN's II-XII intact bilaterally, no focal motor deficits and no sensory deficits noted Motor Exam: strength 5/5 throughout and general weakness Psych thought process normal, cooperative and affect normal Appearance: appropriate Assessment & Plan Assessment/Plan (1) Congestive heart failure: (2) Acute respiratory failure with hypoxia: PLAN: Plan #Hypoxia * . Possibly due to COPD and asthma exacerbation and probable reaction to inhaled tobramycin * Was started on inhaled tobramycin by a director of financial aid at [facility]. She is now on room air and feels better. Respiratory panel is negative. * Tobramycin on hold. Sputum cultures pending. Breathing treatment bronchodilators. On IV Solu-Medrol. Titrate oxygen to maintain saturation above 90%. * Patient states she is allergic to prednisone as it makes her confused and agitated. However she was started on IV Solu-Medrol on admission and she seems to have tolerated it well so we will continue for now. #Hypertension: On hydrochlorothiazide, losartan and metoprolol. IV hydralazine as needed. #Hyperlipidemia: on statin #Anxiety and depression: on sertraline. #History of Non Hodgkin lymphoma: follow up with oncology on outpatient basis #History of fibromyalgia with chronic pain syndrome: Stable #DVT prophylaxis: On eliquis Charges/Coding Visit Charges Inpatient E&M: 23627 Subs Hosp L2
--- NOTE | 2024-12-23 13:50 | CASEMGMT ---
SEGUNDO HERNÁNDEZ Readmission Note Previous Admission: 11/26/24-11/28/24 Diagnosis: multifocal pneumonis, AE asthma/COPD DC Disposition: Home with [facility] Current Admission: Admitted 12/22/24 Current Diagnosis: hypoxia, COPD/Asthma exac Pt represents with dyspnea after a previous stay with above dx as well as a recent dx of PE. Pt had improved on duo nebs, antibiotics and inhaled budesonide. Pt was able to ambulate without the need for supplemental oxygen. SEGUNDO HERNÁNDEZ into pt room, pt states she was doing ok at home but she followed up with her pulm and was started on tobramycin. She states this made her not be able to breathe. Pt states she did take her medications as ordered including her po atb. She states she also had f/u with her PCP. Pt reports weighing herself daily and recording. [facility] is still seeing her in her home. Pt states that she is doing what I can do at home. She states she has a walker, bed that the head raises, pox, nebulizer and w/c. Pt states she does not feel safe ambulating. Noted pt in the weller ambulating this date. Discussed with pt if she felt she needed some home health therapy to be added to her orders. Pt states she had them and she was given an exercise handout and if they come back, they will do the same thing. Pt denies need for this. She states she will do the exercises on her own. Pt would like [facility] to resume, she denies need for a list of other options. ANDREA order entered. OT in the room to see pt at time SEGUNDO HERNÁNDEZ finished. DC Plan: [facility] to resume
--- NOTE | 2024-12-23 16:12 | CASEMGMT ---
Social Work- SW attempted to meet with pt to complete SDOH assessment. Pt taking a nebulizer treatment and unable to speak at this time. SW will meet with pt at a later time. JENNY Yen
[2024-12-23] MEDS: Atorvastatin Calcium 10 MG Tablet 5 MG PO (21:23)
[2024-12-23] MEDS: 0.9% Saline Lock 10 ML Syringe IV (21:24)
[2024-12-24] VITALS (7 sets, daily range): BP systolic 119–137; BP diastolic 73–80; PULSE 64–78; RESP 18; TEMP 36.5–36.7; O2SAT 89–96; BMI 28.0
[2024-12-24 06:19] LABS: Absolute Lymphocyte Count 2.11 X10^3/uL (0.83-4.51); Absolute Neutrophil Count 4.7 X10^3/uL (2.0-7.7); Basophil# 0.06 X10^3/uL; Basophil% 0.7 % (0-1); Eosinophil# 0.59 X10^3/uL; Eosinophils% 7.1 % (0-5); Hemoglobin 12.7 g/dL (12.0-15.0); Lymphocyte # 2.11 X10^3/ul (0.83-4.51); Lymphocyte % 25.5 % (19-41); Mean Corp Hgb Conc 34.3 g/dL (32-36); Mean Corpuscular Hgb 30.8 pg (27.0-32.0); Mean Corpuscular Volume 89.6 fL (81-99); Mean Platelet Vol. 9.3 fl (6.2-12.0); Monocyte# 0.76 X10^3/uL; Monocyte% 9.2 % (0-10); NRBC Flagged by Analyzer 0 % (0-5); Neutrophil # 4.73 X10^3/uL (2.7-7.7); Neutrophil % 57.1 % (47-70); Platelet Count 248 K/mm3 (150-450); RBC Distribution Width CV 13.6 % (11.6-14.6); RBC Distribution Width SD 44.7 fl (35.1-43.9); Red Blood Count 4.13 M/mm3 (4.2-5.4); White Blood Count 8.3 K/mm3 (4.4-11.0)
[2024-12-24 06:45] LABS: Anion Gap 12 (5-15); BUN 18 mg/dL (4-19); BUN/Creat Ratio 31.1 RATIO (10-20); Calcium,Total 8.8 mg/dL (7.6-11.0); Carbon Dioxide 25.7 mmol/L (21.0-32.0); Chloride 101 mmol/L (98-108); Creatinine, Serum 0.56 mg/dL (0.70-1.20); EST Glomerular Filtration Rate 92 (>60); Estimated Creatinine Clearance 63.63 ml/min (50-250); Glucose 118 mg/dL (70-99); Potassium 3.5 mmol/L (3.3-5.1); Sodium Level 139 mmol/L (133-145)
[2024-12-24] MEDS: Ipratropium/Albuterol Sulfate 3 ML AMPUL.NEB INHALATION ×2 (06:56→13:28)
--- NOTE | 2024-12-24 07:37 | PCM.DC.SUM ---
Providers Date of Admission: 12/22/24 Date of Discharge: 12/24/24 Primary Care Physician: Dr. Rito Zuleta MD Reason For Visit: HYPOXIA, COPD/ASTHMA EXAC Diagnosis Discharge Diagnosis (1) Congestive heart failure: Status: Acute Code(s): I50.9 - Heart failure, unspecified (2) Acute respiratory failure with hypoxia: Status: Acute Code(s): J96.01 - Acute respiratory failure with hypoxia Medications at Discharge Home Medications albuterol sulfate 90 mcg/actuation aerosol inhaler 2 puff inhalation Q4H PRN wheezing SOB 05/04/24 atorvastatin 10 mg tablet 5 mg PO QHS HLD 05/04/24 hydrochlorothiazide 25 mg tablet 25 mg PO DAILY bp 05/04/24 methenamine hippurate 1 gram tablet 1 g PO BID . 05/04/24 metoprolol succinate 100 mg tablet,extended release 24 hr 100 mg PO DAILY blood pressure 05/04/24 sertraline 100 mg tablet 150 mg PO DAILY . 05/04/24 timolol maleate 0.5 % eye drops 1 drp ophthalmic (eye) Q12H . 05/04/24 tiotropium bromide 2.5 mcg/actuation mist for inhalation (Spiriva Respimat) 2 puff inhalation QHS COPD 05/04/24 losartan 50 mg tablet 50 mg PO DAILY 1 month #30 tabs 05/08/24 saliva substitute combo no.9 (Biotene Dry Mouth Oral Rinse mouthwash) 15 ml mucous membrane 5X/DAY PRN Dry Mouth #0 mL 05/08/24 albuterol sulfate 2.5 mg/3 mL (0.083 %) solution for nebulization 2.5 mg inhalation Q4H PRN shortness of breath or wheezing 11/21/24 ascorbic acid (vitamin C) 1,000 mg tablet (C-1000) 1 g PO BID vitamin 11/21/24 tobramycin 300 mg/5 mL in 0.225 % sodium chloride for nebulization 5 ml inhalation BID 11/21/24 Held on 12/24/24. Instructions: Until otherwise instructed apixaban 5 mg tablet (Eliquis) 5 mg PO BID 30 days #60 tabs 11/24/24 ipratropium 0.5 mg-albuterol 3 mg (2.5 mg base)/3 mL nebulization soln 3 ml inhalation Q6H #180 mL 11/28/24 Hospital Course Procedures EKG and - (Chest x-ray/CTA chest) Summary of Care Provided Minutes Spent on Discharge: 36 Hospital Course: Ms Christy is an 79-year-old white female who has a history of COPD and overlap syndrome with asthma who presented to the emergency department at [facility] on 12/22/2024 with a chief complaint of shortness of breath and wheezing. Patient typically follows at [facility] pulmonary medicine with Dr. Marline Roberts and had a recent admission here last month at which time she was diagnosed with multifocal pneumonia from rhinovirus. She followed up with her pulmonary medicine doctor and they placed her on tobramycin aerosols for what appears to be colonization with Pseudomonas. Patient had been on them for a month and then went on and off of them for a month and then had been on them a couple days. She states she tolerated fairly well the first month but immediately began having difficulty breathing with increased chest congestion with she restarted the most recently. On presentation she reported some increase secretions but stated they were clear and she had some difficulty bringing them up and felt like they were getting stuck in her throat. Vital signs on presentation showed a temperature of 98.3, heart rate 83, respiratory rate 24, blood pressure was 181/104 and pulse ox was 97% on room air. CBC on presentation was unremarkable other than a mild left shift with 71.1% neutrophilia. Chemistry panel was overtly unremarkable. Initial troponin was 12 with a repeat of 15. proBNP was 483 and procalcitonin was 0.03. Chest x-ray was unremarkable for acute findings. CTA of the chest showed no evidence of acute pulmonary embolism, stable consolidative opacities in the left perihilar region and right middle lobe similar from CT scan on 11/26/2024 felt to be related to scarring and atelectasis. Patient was admitted and placed on aggressive nebulizers and ordered Solu-Medrol. Solu-Medrol was reported as an allergy but unknown allergy. Patient stated it made her crazy and very agitated and she refused all doses of this during her hospitalization. Her oxygen saturations remained stable. Rapid viral testing was unremarkable. Home O2 eval was done prior to discharge and patient required no oxygen at rest or with ambulation. Patient states her breathing felt much better and she was anxious to go home. She did indicate she would like to transition her pulmonary care from [facility] to [place] here at the hospital as she gets all of her care here at the hospital. She was given referral and information to call Dr. Mateusz Roberts's office to schedule a follow-up appointment after discharge. We will hold tobramycin at discharge. Sputum culture was done when she was here and showed only Amber. Patient was able to be discharged home in stable condition on 12/24/2024 with no medication changes other than discontinuation of her tobramycin on room air. Discharge diagnoses: Acute exacerbation of asthma/COPD Adverse medication reaction Essential hypertension Hyperlipidemia History of non-Hodgkin's lymphoma History of fibromyalgia Chronic pain syndrome Recent diagnosis of bilateral PE Nonobstructive CAD Hyperlipidemia CKD stage II HFrEF Physical Exam Const alert, oriented x3, no apparent distress, no limitations and well nourished Constitutional Narrative: Overweight, elderly, white female, sitting up in a chair by the bedside, appears comfortable, nontoxic, on room air General Appearance: cooperative, comfortable, well kempt and well developed Exam Limitations: no limitations Nutritional Appearance: overweight HEENT normocephalic, head/scalp atraumatic, hearing grossly normal bilaterally and moist oral mucous membranes HEENT Narrative: Mallampati 2, no thrush Eyes conjunctivae normal Eyes Narrative: No scleral icterus Neck supple Neck Narrative: Trachea midline Resp normal respiratory effort, no retractions, no use of accessory muscles and No clear to auscultation bilaterally Resp Narrative: Diffuse coarse breath sounds bilaterally with very few scattered end expiratory wheezes Auscultation: wheezes Cardio regular rate, regular rhythm, S1 normal heart sound, S2 normal heart sound, no murmurs, no rub, no gallops and no clicks GI normal to inspection, nondistended, normoactive bowel sounds, soft to palpation and non-tender Extremity no clubbing, cyanosis or edema Extremity Narrative: Pedal and radial pulses are 2+ Skin no jaundice, no petechiae and no mottling Neuro oriented x3, moves all extremities and no focal motor deficits Speech: speech normal Psych affect normal Psych Narrative: Eye contact is good, patient is pleasant, interacts appropriately Weight / BMI Weight Weight: 83.8 kg Body Mass Index (BMI) 28.0 ABG / Lab / Microbiology Data 12/24/24 05:55 12/24/24 05:55 Laboratory: Laboratory Results - last 24 hr 12/24/24 05:55: WBC 8.3, RBC 4.13 L, Hgb 12.7, Hct 37.0, MCV 89.6, MCH 30.8, MCHC 34.3, RDW Std Deviation 44.7 H, RDW Coeff of Ayesha 13.6, Plt Count 248, MPV 9.3, Immature Gran % (Auto) 0.400, Neut % (Auto) 57.1, Lymph % (Auto) 25.5, Gilchrist % (Auto) 9.2, Eos % (Auto) 7.1 H, Baso % (Auto) 0.7, Absolute Neuts (auto) 4.7, Absolute Lymphs (auto) 2.11, Nucleated RBC % 0, Sodium 139, Potassium 3.5, Chloride 101, Carbon Dioxide 25.7, Anion Gap 12, BUN 18, Creatinine 0.56 L, Estim Creat Clear Calc 63.63, Est GFR (MDRD) Non-Af 92, BUN/Creatinine Ratio 31.1 H, Glucose 118 H, Calcium 8.8 Microbiology: Microbiology 12/23/24 05:25 Mucosa - Nasopharyngeal Respiratory Panel (PCR) - Final D/C Instructions Discharge Diet: Low fat / Low cholesterol Discharge Activity: Return to Normal Activity DC O2, CPAP, BIPAP Needs Home O2 Discharge instructions: No DC home with Oxygen: No Meaningful Use Info Meaningful Use Meaningful Use Diagnoses (Choose all that apply): None applicable Ischemic Stroke Statin Dosing Therapy Reference: STATIN DOSE THERAPY REFERENCE: * Patients > 75 years receive moderate or high dose statin therapy. * Patients 75 years or YOUNGER should receive HIGH intensity statin dose unless contraindicated. You will be required to document reason for non-treatment if statin daily dose does not meet guidelines. HIGH DOSE STATIN THERAPY DAILY Atorvastatin > than or = to 40 mg Rosuvastatin > than or = to 20 mg Amlodipine + Atorvastatin > than or = to 2.5/40 mg Ezetimibe + Simvastatin 10/80 mg Simvastatin 80mg Discharge Plan Admission Admit Date/Time: 12/22/24 22:19 Primary Reason for Your Visit: Shortness of breath/wheezing Attending Provider: Rosalind Holman Primary Care Provider: Rito Zuleta Consulting Providers: Deandra Hood; Mirtha Pimentel Discharge Orders/Prescriptions Prescriptions: Continued albuterol sulfate 90 mcg/actuation HFA aerosol inhaler 2 puff inhalation Q4H PRN (Reason: wheezing SOB) atorvastatin 10 mg tablet 5 mg PO QHS metoprolol succinate 100 mg tablet extended release 24 hr 100 mg PO DAILY hydrochlorothiazide 25 mg tablet 25 mg PO DAILY methenamine hippurate 1 gram tablet 1 g PO BID sertraline 100 mg tablet 150 mg PO DAILY Spiriva Respimat 2.5 mcg/actuation mist 2 puff inhalation QHS timolol maleate 0.5 % drops 1 drp ophthalmic (eye) Q12H Biotene Dry Mouth Oral Rinse Mouthwash 15 ml mucous membrane 5X/DAY PRN (Reason: Dry Mouth) Qty: 0 0RF losartan 50 mg tablet 50 mg PO DAILY 30 Days Qty: 30 1RF Rx Instructions: Hold for SBP less than 130 mmHg ipratropium-albuterol 0.5 mg-3 mg(2.5 mg base)/3 mL Solution For Nebulization 3 ml inhalation Q6H Qty: 180 0RF albuterol sulfate 2.5 mg /3 mL (0.083 %) solution for nebulization 2.5 mg inhalation Q4H PRN (Reason: shortness of breath or wheezing) ascorbic acid (vitamin C) [C-1000] 1,000 mg tablet 1 g PO BID Eliquis 5 mg Tablet 5 mg PO BID 30 Days Qty: 60 2RF Held tobramycin in 0.225 % NaCl 300 mg/5 mL solution for nebulization 5 ml INHALATION BID Hold Instructions: Until otherwise instructed Referrals / Follow Up: Mateusz Roberts DO [Med Staff - Active Staff] - Within 1 Month Rito Zuleta MD [Primary Care Provider] - Within 1 Week Disposition Disposition (needs filled in before D/C Order can be placed): Home, Self Care Charges/Coding Visit Charges Inpatient E&M: 82420 Disch Hosp >30min
[2024-12-24] MEDS: Timolol 0.5% 5ML OPTH.BTL 1 DRP OPHTHALMIC (09:41)
[2024-12-24] MEDS: hydroCHLOROthiazide 25 MG Tablet PO (09:41)
[2024-12-24] MEDS: Methenamine Hippurate 1 GM Tablet PO (09:41)
[2024-12-24] MEDS: Sertraline 100 MG Tablet 150 MG PO (09:41)
[2024-12-24] MEDS: Metoprolol(XL)Succ 100 MG Tablet PO (09:41)
[2024-12-24] MEDS: APIXABAN 5 MG TABLET PO (09:41)
--- NOTE | 2024-12-24 10:55 | CASEMGMT ---
Addendum entered by Melissa Holden 12/24/24 12:41: Updated Lyndsay at [facility] that plan is for pt to dc today. They will plan to see pt tomorrow for resumption of services. Updated pt. Original Note: Pt does not require home oxygen.
--- NOTE | 2024-12-24 14:41 | PHA.DC.MR.R ---
Pharmacy ID Med Reconciliation Pharmacy Service has performed discharge medication reconciliation for this patient. The patient's discharge medication list was reviewed for discrepancies and discrepancies were resolved. Medications at Discharge Home Medications albuterol sulfate 90 mcg/actuation aerosol inhaler 2 puff inhalation Q4H PRN wheezing SOB 05/04/24 atorvastatin 10 mg tablet 5 mg PO QHS HLD 05/04/24 hydrochlorothiazide 25 mg tablet 25 mg PO DAILY bp 05/04/24 methenamine hippurate 1 gram tablet 1 g PO BID . 05/04/24 metoprolol succinate 100 mg tablet,extended release 24 hr 100 mg PO DAILY blood pressure 05/04/24 sertraline 100 mg tablet 150 mg PO DAILY . 05/04/24 timolol maleate 0.5 % eye drops 1 drp ophthalmic (eye) Q12H . 05/04/24 tiotropium bromide 2.5 mcg/actuation mist for inhalation (Spiriva Respimat) 2 puff inhalation QHS COPD 05/04/24 losartan 50 mg tablet 50 mg PO DAILY 1 month #30 tabs 05/08/24 saliva substitute combo no.9 (Biotene Dry Mouth Oral Rinse mouthwash) 15 ml mucous membrane 5X/DAY PRN Dry Mouth #0 mL 05/08/24 albuterol sulfate 2.5 mg/3 mL (0.083 %) solution for nebulization 2.5 mg inhalation Q4H PRN shortness of breath or wheezing 11/21/24 ascorbic acid (vitamin C) 1,000 mg tablet (C-1000) 1 g PO BID vitamin 11/21/24 tobramycin 300 mg/5 mL in 0.225 % sodium chloride for nebulization 5 ml inhalation BID 11/21/24 Held on 12/24/24. Instructions: Until otherwise instructed apixaban 5 mg tablet (Eliquis) 5 mg PO BID 30 days #60 tabs 11/24/24 ipratropium 0.5 mg-albuterol 3 mg (2.5 mg base)/3 mL nebulization soln 3 ml inhalation Q6H #180 mL 11/28/24
== END 2024-12-24 15:31 | disposition home health service (06) | DRG 191 ==
LOC: ED 21:51 → MS3 22:36
PROVIDERS: Student in an Organized Health Care Education/Training Program; Admitting Provider Family Medicine; Emergency Provider Emergency Medicine; PCP Family Medicine; Visit Provider Internal Medicine
DX: J44.1 Chronic obstructive pulmonary disease with (acute) exacerbation (principal); I13.0 Hypertensive heart and chronic kidney disease with heart failure and stage 1 through stage 4 chronic kidney disease, or unspecified chronic kidney disease; I50.20 Unspecified systolic (congestive) heart failure; B37.9 Candidiasis, unspecified; E78.5 Hyperlipidemia, unspecified; F41.8 Other specified anxiety disorders; N18.2 Chronic kidney disease, stage 2 (mild); Z79.899 Other long term (current) drug therapy; T36.5X5A Adverse effect of aminoglycosides, initial encounter
CPT/HCPCS: 36415; 71045; 71275; 80048; 80053; 83880; 84145; 84484; 85025; 87633; 93005; 94640; 94668; 97161; 97166; 97535; 99284; Q9967; A4216

== ENCOUNTER → 2025-02-10 | Outpatient (CLI) | payer MEDICARE, SELFPAY ==
--- NOTE | 2025-02-10 14:00 | ECHOD_ITS ---
Reason For Study Reason For Study: CHF Procedure This was a 2D Doppler, Color Flow transthoracic echocardiogram. The study was technically difficult. Definity declined due to patient being unable to handle probe pressure. Exam performed in department. Left Ventricle Normal LV size. Mild concentric left ventricular hypertrophy. The left ventricular ejection fraction is 55 %. Stage 1 diastolic dysfunction. Right Ventricle Normal RV size. Aortic Valve The aortic valve is not well visualized. Mild (1+) aortic valve insufficiency. Great Vessels Normal aortic root. The pulmonary is not well visualized. Inferior vena cava collapse with respiration. Pericardium/Pleural No pericardial effusion. MMode/2D Measurements & Calculations LVIDd: 3.6 cm IVSd: 1.2 cm LAV(MOD- bp): 40.3 ml LVIDs: 2.5 cm LVPWd: 1.1 cm FS: 31.0 % LAV(MOD- bp) Indexed: 20.7 ml/m2 LAV(MOD- sp2): 22.4 ml LAV(MOD- sp4): 51.3 ml LA A4 area: 19.2 cm2 LA dimension(2D): 3.2 cm RA A4 area: 15.3 cm2 Time Measurements MV dec time: 0.25 sec Doppler Measurements & Calculations MV E max kenneth: 80.1 cm/sec Lat Peak E' Kenneth: 12.5 cm/sec Med Peak E' Kenneth: 9.5 cm/sec MV A max kenneth: 82.3 cm/sec E/E' lat: 6.4 E/E' med: 8.5 MV E/A: 0.97 MV V2 max: 103.7 cm/sec Ao V2 max: 146.3 cm/sec MV max P.3 mmHg MV dec slope: 325.4 cm/sec2 Ao max P.6 mmHg MV V2 mean: 63.4 cm/sec Ao V2 mean: 96.6 cm/sec MV mean P.9 mmHg Ao mean P.4 mmHg MV V2 VTI: 39.3 cm Ao V2 VTI: 32.6 cm AV (velocity ratio): 0.87 AI max kenneth: 418.2 cm/sec LV V1 max: 125.6 cm/sec AI max P.0 mmHg LV V1 max P.3 mmHg AI dec slope: 169.8 cm/sec2 LV V1 mean P.2 mmHg AI P1/2t: 721.4 msec LV V1 mean: 98.7 cm/sec LV V1 VTI: 28.5 cm ECHO/Echo Complete Interpretation Summary Normal LV size. The left ventricular ejection fraction is 55 %. Stage 1 diastolic dysfunction. Mild (1+) aortic valve insufficiency. Ordering Physician: Ashley Rogers Referring Physician: Ashley Rogers Performed By: Pati Yoder RCS
== END | disposition home or self-care (01) ==
LOC: CVS 13:57
PROVIDERS: PCP Family Medicine; Referring Provider Nurse Practitioner Family; Visit Provider Nurse Practitioner Family
DX: I50.9 Heart failure, unspecified (principal); I35.1 Nonrheumatic aortic (valve) insufficiency
CPT/HCPCS: 93306

== ENCOUNTER → 2025-05-30 | Outpatient (CLI) | payer MEDICARE, SELFPAY | END | disposition home or self-care (01) | LOC: PSN 12:08 | PROVIDERS: PCP Family Medicine; Referring Provider Nurse Practitioner Acute Care; Visit Provider Nurse Practitioner Acute Care | DX: J44.89 Other specified chronic obstructive pulmonary disease (principal) | CPT/HCPCS: 94060; 94726; 94729 ==

== ENCOUNTER → 2025-07-07 | Outpatient (CLI) | payer MEDICARE, SELFPAY ==
--- NOTE | 2025-07-07 13:01 | US_ITS ---
PROCEDURE: THYROID 07/07/2025 REASON FOR EXAM: Known nodules, surveillance TECHNIQUE: Procedure Code: USTHY Modality: US Procedure: THYROID COMPARISON: 07/05/2024 FINDINGS: Right thyroid lobe size: 4.3 x 1.8 x 1.8 cm Left thyroid lobe size: 4.0 x 1.4 x 1.7 cm Isthmus: 0.2 cm Background parenchymal echotexture is heterogeneous Nodules: 1. Lobe: Right, Location: Upper, Size: 1.1 x 0.6 x 0.5 cm, Stability: Stable Composition: Solid or almost completely solid (+2) Echogenicity: Hypoechoic (+2) Margin: Smooth (+0) Shape: Wider than tall (+0) Echogenic Foci: None (+0) TI-RADS: <2 = TR 1 * 2 = TR 2 * 3 = TR 3 * 4-6 = TR 4 * >6 = TR 5 2. Lobe: Right, Location: Mid, Size: 1.7 x 1.3 x 0.9 cm, Stability: Stable Composition: Solid or almost completely solid (+2) Echogenicity: Hypoechoic (+2) Margin: Smooth (+0) Shape: Wider than tall (+0) Echogenic Foci: None (+0) TI-RADS: <2 = TR 1 * 2 = TR 2 * 3 = TR 3 * 4-6 = TR 4 * >6 = TR 5 3. Lobe: Left, Location: Mid, Size: 0.7 x 0.6 x 0.5 cm, Stability: Stable Composition: Solid or almost completely solid (+2) Echogenicity: Hypoechoic (+2) Margin: Smooth (+0) Shape: Wider than tall (+0) Echogenic Foci: None (+0) TI-RADS: <2 = TR 1 * 2 = TR 2 * 3 = TR 3 * 4-6 = TR 4 * >6 = TR 5 There are also 2 separate subcentimeter simple cysts in the left lobe. US/Thyroid IMPRESSION: Stable normal-sized heterogeneous thyroid gland with stable bilateral solid and cystic nodules. No interval change since 07/05/2024. Continued yearly sonographic surveillance. RECOMMENDATION: Based on most suspicious nodule. Nodule size = largest diameter Only evaluate nodule if =>5 mm. Growth > 20% in 2 dimensions = worsening. Follow up to 4 nodules. Recommend biopsy for no more than 2 nodules. Reading Location: [id number]
== END | disposition home or self-care (01) ==
PROVIDERS: PCP Family Medicine; Referring Provider Nurse Practitioner Family; Visit Provider Nurse Practitioner Family
DX: E04.1 Nontoxic single thyroid nodule (principal)
CPT/HCPCS: 76536